=== PATIENT | female | born 1950 | race Caucasian/White ===

== ENCOUNTER 2019-08-22 15:16 | Outpatient (CLI) | payer MEDICARE ==
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
== END 2019-08-22 15:17 | disposition home or self-care (01) ==
LOC: PC 15:16
PROVIDERS: ATTEND Nurse Practitioner Adult Health
DX: Z51.5 Encounter for palliative care (principal); E10.9 Type 1 diabetes mellitus without complications; R63.4 Abnormal weight loss; F41.9 Anxiety disorder, unspecified; M62.81 Muscle weakness (generalized); R32 Unspecified urinary incontinence; R53.81 Other malaise; F40.231 Fear of injections and transfusions; F40.232 Fear of other medical care; F17.210 Nicotine dependence, cigarettes, uncomplicated; F99 Mental disorder, not otherwise specified; I10 Essential (primary) hypertension; Z79.84 Long term (current) use of oral hypoglycemic drugs; Z91.14 Patient's other noncompliance with medication regimen; Z91.81 History of falling
CPT/HCPCS: 99344

== ENCOUNTER 2019-09-10 18:31 | Inpatient (IN) | payer MEDICARE ==
--- NOTE | 2019-09-10 19:25 | XRAY Report ---
Reason: cough Procedure Date: 09/10/2019 Accession Number: [id number] / [id number] Procedure: XR - Chest 2 View X-Ray CPT Code: 57900 Final Report FULL RESULT: EXAM: CHEST RADIOGRAPHY EXAM DATE: 09/10/2019 07:01 PM. CLINICAL HISTORY: Cough. COMPARISON: None. TECHNIQUE: 2 views. FINDINGS: Lungs/Pleura: Pulmonary hyperinflation present diffusely. No focal opacities, effusions or edema present. Mediastinum: Diffusely narrowed mediastinum. No cardiac enlargement or mediastinal mass. Other: None. IMPRESSION: 1. Diffuse pulmonary hyperinflation may represent underlying emphysema. 2. No focal pulmonary opacities or edema. RADIA
[2019-09-10] MEDS ORDERED: SODIUM CHLORIDE 0.9% 1,000 ML IV ONE ×2 (20:12→21:48)
--- NOTE | 2019-09-10 20:16 | ED Physician Documentation ---
History of Present Illness - Stated complaint Stated Complaint: FEVER - Chief complaint Chief Complaint: Fever - History of Present Illness Timing: Other (69-year-old woman with history of psychiatric disorder and a recent diagnosis of type 1 diabetes presents with friends With whom she lives for few days worth of productive cough and a fever starting today as well as the inability to walk due to weakness today. No known history of COPD despite her suggestive body habitus and x-ray. 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 : Incontinence HEENT: None Psych: Depression, Anxiety, Other Musculoskeletal: Other Derm: None - Past Surgical History Past Surgical History: No - Present Medications Home Medications: Ambulatory Orders Medication Instructions Recorded Confirmed metFORMIN [Glucophage] 500 mg PO DAILY MDD 500 mg BID 08/22/19 08/22/19 when tolerated - Allergies Allergies/Adverse Reactions: Allergies Allergy/AdvReac Type Severity Reaction Status Date / Time No Known Drug Allergies Allergy Verified 09/10/19 18:37 - Social History Does the pt smoke?: Yes Smoking Status: Current every day smoker Does the pt drink ETOH?: No Does the pt have substance abuse?: No - Immunizations Immunizations are current?: No - POLST Patient has POLST: No PD ED PE NORMAL - Vitals Vital signs reviewed: Yes - General General: No acute distress, Other (She does seem slightly confused, she can state the date, that she is in the hospital but does not know which hospital. She is thin and cachectic. 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 2-12 intact Eye Opening: Spontaneous Motor: Obeys Commands Verbal: Confused GCS Score: 14 Results - Vitals Vitals: Vital Signs - 24 hr 09/10/19 09/10/19 18:37 21:01 Temperature 38.9 C H 38.1 C H Heart Rate 117 H 107 H Respiratory 24 20 Rate Blood Pressure 180/98 H 156/72 H O2 Saturation 94 90 L Oxygen O2 Source Room air - Labs Labs: Laboratory Tests 09/10/19 09/10/19 09/10/19 18:42 18:48 20:23 WBC 9.8 RBC 4.56 Hgb 14.4 Hct 45.1 MCV 98.9 MCH 31.6 H MCHC 31.9 L RDW 12.3 Plt Count 292 MPV 9.6 Neut # (Auto) 7.9 H Lymph # (Auto) 0.9 L [place] # (Auto) 0.6 Eos # (Auto) 0.2 Baso # (Auto) 0.1 Absolute Nucleated RBC 0.00 Nucleated RBC % 0.0 Sodium Potassium Chloride Carbon Dioxide Anion Gap BUN Creatinine Estimated GFR (MDRD) Glucose POC Whole Bld Glucose 264 H Lactic Acid Calcium Total Bilirubin AST ALT Alkaline Phosphatase Total Protein Albumin Globulin Albumin/Globulin Ratio Lipase Ethyl Alcohol Serum Ketones Influenza A (Rapid) Negative Influenza B (Rapid) Negative 09/10/19 09/10/19 09/10/19 20:23 20:23 20:23 WBC RBC Hgb Hct MCV MCH MCHC RDW Plt Count MPV Neut # (Auto) Lymph # (Auto) [place] # (Auto) Eos # (Auto) Baso # (Auto) Absolute Nucleated RBC Nucleated RBC % Sodium 137 Potassium 4.4 Chloride 98 L Carbon Dioxide 25 Anion Gap 14.0 H BUN 16 Creatinine 0.7 Estimated GFR (MDRD) 83 L Glucose 313 H POC Whole Bld Glucose Lactic Acid 1.2 Calcium 9.3 Total Bilirubin 0.6 AST 16 ALT 15 Alkaline Phosphatase 95 Total Protein 7.0 Albumin 3.5 Globulin 3.5 Albumin/Globulin Ratio 1.0 Lipase 32 Ethyl Alcohol < 5.0 Serum Ketones SMALL H Influenza A (Rapid) Influenza B (Rapid) - Rads (name of study) 2v chest Radiology: EMP read contemporaneously (Hyperinflation) PD MEDICAL DECISION MAKING - ED course ED course: 69-year-old woman presents confused with fever, COPD on examination and exacerbation based on symptoms. Administered abx, duoneb. Steroids held d/t DMI. Spoke with Dr García for admit given weakness/confusion. Departure - Departure Disposition: 66 [facility] DC/Xfer Clinical Impression: COPD exacerbation, Confusion Fever Qualifiers: Fever type: due to other condition Qualified Code(s): R50.81 - Fever presenting with conditions classified elsewhere Condition: Serious Discharge Date/Time: 09/10/19 23:12
[2019-09-10 20:31] LABS: BASOPHILS # (AUTO) 0.1 10^3/uL (0.0-0.1); EOSINOPHILS # (AUTO) 0.2 10^3/uL (0.0-0.7); EOSINOPHILS % (AUTO) 1.5 %; HGB - HEMOGLOBIN 14.4 g/dL (12.0-16.0); LYMPHOCYTES # (AUTO) 0.9 10^3/uL (1.5-3.5); LYMPHOCYTES % (AUTO) 9.1 %; MEAN CORPUSCULAR HEMOGLOBIN 31.6 pg (27.0-31.0); MEAN CORPUSCULAR HGB CONC 31.9 g/dL (32.0-36.0); MEAN CORPUSCULAR VOLUME 98.9 fL (81.0-99.0); MEAN PLATELET VOLUME 9.6 fL (7.9-10.8); MONOCYTES # (AUTO) 0.6 10^3/uL (0.0-1.0); MONOCYTES % (AUTO) 6.6 %; NEUTROPHILS # (AUTO) 7.9 10^3/uL (1.5-6.6); NEUTROPHILS % (AUTO) 80.6 %; PLT - PLATELET COUNT 292 10^3/uL (130-450); RED BLOOD COUNT 4.56 10^6/uL (4.20-5.40); RED CELL DISTRIBUTION WIDTH 12.3 % (12.0-15.0); WHITE BLOOD COUNT 9.8 x10^3/uL (4.8-10.8)
[2019-09-10 20:47] LABS: ALBUMIN 3.5 g/dL (3.2-5.5); BILIRUBIN,TOTAL 0.6 mg/dL (0.2-1.0); CALCIUM 9.3 mg/dL (8.5-10.3); CREATININE 0.7 mg/dL (0.4-1.0)
[2019-09-10] MEDS ORDERED: cefTRIAXone 1 GM VIAL IVP STA (21:40)
[2019-09-10] MEDS ORDERED: AZITHROMYCIN INJ 500 MG in SODIUM CHLORIDE 0.9% 250 ML IV STA (21:40)
[2019-09-10] MEDS ORDERED: IPRATROPIUM/ALBUTEROL 3 ML NEB INH STA (21:40)
[2019-09-10] MEDS ORDERED: ONDANSETRON 4 MG/2 ML VIAL IVP PRN (21:44)
[2019-09-10] MEDS ORDERED: SODIUM CHLORIDE FLUSH 0.9% 10 ML SYRINGE IVP PRN (21:44)
[2019-09-10] MEDS ORDERED: ACETAMINOPHEN 325 MG TABLET PO PRN (21:44)
[2019-09-10] MEDS ORDERED: BENZONATATE 100 MG CAPSULE PO PRN (21:50)
[2019-09-10] MEDS ORDERED: SODIUM CHLORIDE 0.9% 1,000 ML IV SCH (22:00)
--- NOTE | 2019-09-10 22:11 | HISTORY & PHYSICAL EXAMINATION ---
Chief Complaint - Chief Complaint Chief Complaint: Cough History of Present Illness - Admitted From Admitted From:: Home - History Obtained From Records Reviewed: Yes History obtained from: Patient, Friends, ER Physician, EMR - History of Present Illness HPI Comment/Other: This is a 69-year-old female with a past medical history significant for rece ntly diagnosed type 1 diabetes, and reported psychiatric history who presents today complaining of a worsening cough for the past 3 days. Most of the history is obtained from the patient and her caregivers at bedside. The patient states she has had a nonproductive cough that has progressed over the past 3 days. She reports no dyspnea at this time although she has had occasional episodes where s he has felt short of breath at rest. She reports no fevers at home but today her caregiver measured her temperature and it was 101. It was checked a couple hours later and it had increased to 102. They were concerned for pneumonia and that is why she was brought to the emergency department. The patient denies any chest pain, nausea, vomiting, abdominal pain, dysuria, urgency. She reports no focal weakness. She does complain of feeling generally weak. Both the caregivers had been recently sick but both are recovering from the flu. Her caregiver state that normally she is able to ambulate on her own but this morning should not get out of bed until 11 AM which is quite late for her. She was then very weak and not eating as much as she usually does. They state that she was recently diagnosed with type 1 diabetes about 1 month ago. She was prescribed Lantus which she has been taking nearly every day although she not take it today. She is now on 17 units of Lantus which is given to her by her caregiver usually around noon time. The patient is not adherent to a carb controlled diet. She also drinks about 6 cans of Diet Coke a day. She is unable to check her own blood sugars and does not administer her own insulin. Her caregiver checks her blood sugar twice a day and states it is usually in the 500s to 600s. Patient does not take any other medications except for Lantus. She reports that she continues to smoke about 1 cigarette a day although her caregiver states she smokes more than that. The patient states she smoked in the past about 10 cigarettes a day although she cannot recall for how long she has been smoking for. She does not drink alcohol. Her caregivers also states she has been more confused than usual today. Earlier on in the day she did not know her date of . Right now, she knows the year and her date of . She is able to name her caregivers who are at bedside. The patient had previously been living alone up until when she moved in with her current caregivers, Lizeth and Cirilo. She has been losing about 10 pounds a month until she was diagnosed with type 1 diabetes one month ago. At the beginning of August, she has gained approximately 10 pounds. In the emergency department, she is found to be febrile temperature of 30.9 degrees. Tachycardic with a heart rate of 117. Hypertensive with a blood pressure of 180/98. She was also tachypneic in the low 20s and saturating 94% on room air. Her labs were unremarkable except for an anion gap of 14 and a blood glucose of 313. Influenza was negative. Chest x-ray showed no acute abnormalities although was suggestive of emphysema. She was given a DuoNeb breathing treatment as well as ceftriaxone azithromycin in the emergency department. Given the fever, COPD exacerbation and concern for her altered mental status, medicine was consulted for admission. Did discuss goals of care with the patient and her caregivers at bedside. The patient states that she would like to be a DNR. She has reportedly filled out a POLST form in the past which states she would not want aggressive measures. At this time, she is agreeable to IV fluids and antibiotics but she would not want to be transferred to intensive care unit for more aggressive measures. This was confirmed by her caregivers. History - Past Medical History Cardiovascular: reports: Hypertension Respiratory: reports: None Neuro: reports: Dementia Endocrine/Autoimmune: reports: Type 1 diabetes GI: reports: None LINEMAN A CLASS: reports: Other : reports: Incontinence HEENT: reports: None Psych: reports: Depression, Anxiety Derm: reports: None MRSA Hx?: No - Family & Social History Family History Comment/Other: Patient reports that her father had alcoholism but she cannot recall any other medical history. Living arrangement: Homeless Living Situation: With friend(s) Social History Notes: The patient was previously living on her own with her dog in an apartment. He had been losing weight and was unable to take care of herself and so she moved in with her friend, Lizeth around time. She had been staying with Lizeth and Cirilo since then and they have been caring for her. She areas one who administers the patient's insulin and checks her blood sugars. They have met with Litzy Perez of palliative care earlier this month. The patient has home health visiting twice a day. Lizeth is concerned that the patient will be unable to take care of herself at home when she is going on vacation next month. Patient reports smoking 1 cigarette a day although she reports that she smokes more than that. The patient previously smoked 10 cigarettes a day although she cannot recall for how long she has been smoking for. She does not drink alcohol. - Substance History Use: Uses substance without health or social issues: Tobacco (smokes 2 cigerettes a day) - POLST Patient has POLST: No Meds/Allgy - Home Medications Home Medications: Ambulatory Orders Medication Instructions Recorded Confirmed Insulin Glargine [Lantus Solostar] 17 unit 09/11/19 - Allergies Allergies/Adverse Reactions: Allergies Allergy/AdvReac Type Severity Reaction Status Date / Time No Known Drug Allergies Allergy Verified 09/10/19 18:37 Review of Systems - Constitutional Constitutional: reports: Fatigue, Fever, Weakness, Poor appetite. denies: Chills, Malaise - Eyes Eyes: denies: Blurred vision - Cardiovascular Cariovascular: denies: Chest pain, Edema, Exertional dyspnea, Decr. exercise tolerance - Respiratory Respiratory: reports: Cough. denies: Sputum production, Wheezing, SOB at rest, SOB with exertion - Gastrointestinal Gastrointestinal: denies: Abdominal pain, Nausea, Vomiting - Genitourinary Genitourinary: denies: Dysuria, Frequency, Urgency - Integumentary Integumentary: reports: Rash (In the groin) - Neurological Neurological: reports: General weakness. denies: Focal weakness, Numbness - All Other Systems All Other Systems: reports: Reviewed and negative Prior Level of Functionality: She is dependent on her friend, Lizeth for her ADLs. She had been losing weight when she lives alone and continues to do so and now weighs 80 pounds. Exam - Vital Signs Reviewed Vital Signs: Yes Vital Signs: Vital Signs x48h Temp Pulse Resp BP Pulse Ox 09/10/19 21:01 38.1 C H 107 H 20 156/72 H 90 L 09/10/19 18:37 38.9 C H 117 H 24 180/98 H 94 - Physical Exam General Appearance: positive: No acute distress, Alert Eyes Bilateral: positive: Normal inspection ENT: positive: Pharynx nml Neck: positive: Nml inspection Respiratory: positive: No respiratory distress, Wheezes (Does have faint expiratory wheezes. Breath sounds are diminished.). negative: Rales, Rhonchi Cardiovascular: positive: Regular rate & rhythm, No murmur, Tachycardia. negati ve: Bradycardia, Systolic murmur, Diastolic murmur Abdomen: positive: Non-tender, No distention. negative: Tenderness, Guarding, Rebound Skin: positive: Warm, Dry. negative: Pallor Extremities: positive: Full ROM, No pedal edema Neurologic/Psychiatric: positive: Oriented x3, Motor nml, Other (She has no focal motor deficits. She is oriented to self and she knows she is in the hospital although she cannot recall which one. She knows that it is now the year 2019 and she knows it was just her birthday a few days ago.). negative: Disoriented to person, Disoriented to place, Disoriented to time, Slurred/abnml speech Conclusion/Plan - Problem List (1) Fever Conclusion/Plan: She was febrile with a temperature of 38.9 upon arrival to emergency department. She is also tachycardic and slightly tachypneic. Her labs are unremarkable and chest x-ray is without obvious infiltrate. Influenza is also negative. Blood cultures have been drawn. Etiology of her fever is not clear although this could possibly be a viral illness. We will place her on ceftriaxone and azithromycin for COPD exacerbation. We will follow-up her urinalysis. If she remains febrile, will likely start empiric treatment with Tamiflu for influenza. Qualifiers: Fever type: due to other condition Qualified Code(s): R50.81 - Fever presenting with conditions classified elsewhere (2) Confusion Conclusion/Plan: She is slightly confused at times but her caregivers feel that she is improving. Suspect her confusion likely secondary to the likely infection given her fevers. She is oriented to self and location although she does not know which hospital she is in. Prior palliative care notes mention that her mental status fluctuates at baseline and there may be a possible history of dementia when speaking with the caregivers. We will hold off on obtaining a CT of the head of the time as there are no focal deficits on exam. We will not check an ammonia as her LFTs are normal. (3) COPD exacerbation Conclusion/Plan: Although she does not have an official diagnosis of COPD, her chest x-ray did reveal emphysematous changes. She does have wheezing on exam with diminished breath sounds. She has a profound cough. Fortunately she is not hypoxic. Will place her on duo nebs [id number] as well as Tessalon and Robitussin for her cough. We will also start her on ceftriaxone and azithromycin. We will want to rule out diabetic ketoacidosis before starting her on steroids. She would benefit from a LAMA on discharge as well as albuterol as needed. (4) Type 1 diabetes mellitus with hyperglycemia Conclusion/Plan: She has been reportedly diagnosed with type 1 diabetes recently and is now on insulin. Reading the palliative care consult note from earlier this month, it appears patient has been noncompliant with her insulin regimen and has had blood glucose as high as 1000. She is hyperglycemic with a blood glucose greater than 300. Her anion gap is slightly elevated as well but her bicarbonate is normal. We will place her on 17 units of Lantus and sliding scale. We will check serum ketones to rule out the possibility of early diabetic ketoacidosis. Will place her on a consistent carbohydrate diet unless she does have DKA. If she does then we will make her n.p.o. and hydrate her aggressively and we will attempt to control her blood glucose with subcutaneous insulin. Check an A1c in the morning as reportedly her previous A1c's were around 15%. 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 (5) Living accommodation issues Conclusion/Plan: She is homeless but has been staying with a friend, Lizeth since July. Lizeth is concerned that the patient be unable to take care of herself at home when she is on vacation starting this Monday for about 10 days. She does have home health seen the patient is only twice a week. We will place a social work consult to assist with disposition. (6) Psychiatric disorder Conclusion/Plan: She reportedly has a history of psychiatric disorder although unclear what diagnoses she has had in the past. Will need to confirm if she is on any medications before restarting them. - Lab Results Lab results reviewed: Yes Fish Bones: 09/10/19 20:23 09/10/19 23:50 - Diagnostic Imaging Results Diagnostic Imaging Results: positive: Final report reviewed Core Measures - Anticipated LOS I expect patient to be DC'd or transferred within 96 hours.: Yes - Issues Hospital Issues and Management Plan: This is a 69-year-old female who presents complaining of shortness of breath and weakness found to have a fever and COPD suspicion. Should be admitted for further work-up of the fever and treatment of her COPD. - DVT/VTE - Prophylaxis VTE/DVT Device ordered at admit?: Yes VTE/DVT Prophylaxis med ordered at admit?: Yes
[2019-09-10 22:13] LABS: KETONES, SERUM (ACETEST) SMALL (NEGATIVE)
[2019-09-11 00:19] LABS: CALCIUM 8.4 mg/dL (8.5-10.3); CREATININE 0.8 mg/dL (0.4-1.0); MAGNESIUM 1.8 mg/dL (1.7-2.8); PHOSPHORUS 3.4 mg/dL (2.5-4.6)
[2019-09-11] MEDS ORDERED: INSULIN REGULAR HUMAN 300 UNIT/3 ML VIAL IVP ONE (00:40)
[2019-09-11] MEDS: INSULIN GLARGINE 300 UNIT/3 ML PEN SUBQ SCH ×2 (01:02→21:00)
[2019-09-11] MEDS: SODIUM CHLORIDE FLUSH 0.9% 10 ML SYRINGE IVP SCH ×3 (01:03→16:42)
[2019-09-11 04:22] LABS: MUDS CUTOFF CONCENTRATIONS CUTOFF CONC BELOW:
[2019-09-11 04:24] LABS: BILIRUBIN,URINE NEGATIVE (NEGATIVE); GLUCOSE, URINE (UA) >=1000 mg/dL (NEGATIVE); KETONES,URINE (UA) >=80 mg/dL (NEGATIVE); LEUKOCYTE ESTERASE, URINE TRACE (NEGATIVE); NITRITE,URINE NEGATIVE (NEGATIVE); OCCULT BLOOD,URINE NEGATIVE (NEGATIVE); PH,URINE 5.5 PH (5.0-7.5); PROTEIN,URINE NEGATIVE (NEGATIVE); UROBILINOGEN,URINE 0.2 (NORMAL) E.U./dL (NORMAL)
[2019-09-11 04:29] LABS: CLARITY,URINE HAZY (CLEAR)
[2019-09-11 04:33] LABS: BACTERIA,URINE Few /HPF (None Seen); RBC,URINE 0-5 /HPF (0-5); SQUAMOUS EPITHELIAL CELL,UR RARE Squamous (<= Few)
[2019-09-11 04:34] LABS: AMPHETAMINE SCREEN,URINE NEGATIVE (NEGATIVE); BENZODIAZEPINES SCREEN, URINE NEGATIVE (NEGATIVE); COCAINE SCREEN URINE NEGATIVE (NEGATIVE); METHADONE SCREEN, URINE NEGATIVE (NEGATIVE); METHAMPHETAMINES SCREEN, URINE NEGATIVE (NEGATIVE); OPIATE SCREEN, URINE NEGATIVE (NEGATIVE); OXYCODONE SCREEN, URINE NEGATIVE (NEGATIVE); PROPOXYPHENE SCREEN, URINE NEGATIVE (NEGATIVE); TRICYCLIC ANTIDEPRESSANT,URINE NEGATIVE (NEGATIVE)
[2019-09-11 05:06] LABS: BASOPHILS % (AUTO) 0.7 %; EOSINOPHILS % (AUTO) 1.5 %; LYMPHOCYTES % (AUTO) 8.4 %; MEAN CORPUSCULAR HEMOGLOBIN 31.9 pg (27.0-31.0); MEAN CORPUSCULAR HGB CONC 32.1 g/dL (32.0-36.0); MEAN CORPUSCULAR VOLUME 99.5 fL (81.0-99.0); MEAN PLATELET VOLUME 9.7 fL (7.9-10.8); MONOCYTES % (AUTO) 7.1 %; NEUTROPHILS % (AUTO) 81.2 %; PLT - PLATELET COUNT 263 10^3/uL (130-450); RED BLOOD COUNT 4.07 10^6/uL (4.20-5.40); RED CELL DISTRIBUTION WIDTH 12.3 % (12.0-15.0); WHITE BLOOD COUNT 9.7 x10^3/uL (4.8-10.8)
[2019-09-11 05:16] LABS: ABNORMAL LYMPHS % (MANUAL) 0 %
[2019-09-11 05:18] LABS: CALCIUM 8.3 mg/dL (8.5-10.3); CREATININE 0.7 mg/dL (0.4-1.0); MAGNESIUM 1.9 mg/dL (1.7-2.8); PHOSPHORUS 2.8 mg/dL (2.5-4.6)
[2019-09-11 05:23] LABS: HB2 TOTAL 13.3 g/dL; HEMOGLOBIN A1C 1.99 g/dL; HEMOGLOBIN A1C % 15.8 % (4.6-6.2)
[2019-09-11] MEDS: IPRATROPIUM/ALBUTEROL 3 ML NEB INH SCH ×5 (06:43→22:57)
[2019-09-11 06:45] LABS: BAND NEUTROPHILS % (MANUAL) 14 %; DIFFERENTIAL COMMENT MANUAL DIFFERENTIAL; LYMPHOCYTES # (MANUAL) 0.8 10^3/uL (1.5-3.5); LYMPHOCYTES % (MANUAL) 8 %; MONOCYTES # (MANUAL) 0.5 10^3/uL (0.0-1.0); PLATELET ESTIMATE, MANUAL NORMAL (130-450,000) (NORMAL); RBC MORPHOLOGY (MULTIPLE) NORMAL APPEARANCE (NORMAL)
[2019-09-11] MEDS ORDERED: POTASSIUM CHLORIDE 20 MEQ TABLET PO ONE (06:45)
[2019-09-11] MEDS ORDERED: predniSONE 20 MG TABLET PO SCH (08:00)
[2019-09-11] MEDS: INSULIN ASPART 300 UNIT/3 ML PEN SUBQ SCH ×5 (08:32→20:59)
[2019-09-11] MEDS: HEPARIN 5,000 UNIT/ML VIAL SUBQ SCH ×2 (08:33→21:00)
--- NOTE | 2019-09-11 08:54 | PHARMACY PROGRESS NOTE ---
- Best Possible Medication History Admit Date and Time: 09/10/19 214 Processed by: Pharmacy Medication History completed: Yes Patient Interview: Pt unable to participate Secondary Source(s): Caregiver As the person ultimately responsible for medication therapy, providers are able to order a medication from an existing home medication list in [facility] via the "Reconcile Routine" prior to Confirmation of that medication by legal support manager. Such practice is discouraged except when the physician, in their clinical judgment, deems that a medical need exists for a medication without regard to previous use.
[2019-09-11] MEDS: AZITHROMYCIN 250 MG TABLET PO SCH (09:00)
[2019-09-11] MEDS: SODIUM CHLORIDE 0.9% 1,000 ML IV SCH ×2 (09:01→20:46)
[2019-09-11] MEDS: cefTRIAXone 1 GM in SODIUM CHLORIDE 0.9% MINIBAG 100 ML IV SCH (09:02)
--- NOTE | 2019-09-11 14:45 | PROVIDER PROGRESS NOTE ---
Assessment/Plan - Problem List (1) Fever Qualifiers: Fever type: due to other condition Qualified Code(s): R50.81 - Fever presenting with conditions classified elsewhere Assessment/Plan: no more fever today. blood culture is pending. pt present cough with wheezing, it is likely the resource to cause pt to have fever continue antibiotics azithyromycin and Rocephin, order sputum culture (2) Confusion Conclusion/Plan: improving. Suspect her confusion likely secondary to the likely infection given her fevers. continue antibiotics, and IVF of NS neuro check (3) COPD exacerbation Conclusion/Plan: pt still present significant wheezing, cough and SOB add solu-metrol 40 mg tid, continue INH treatment supplement of O2 as needed (4) Type 1 diabetes mellitus with hyperglycemia Conclusion/Plan: pt has A1C 15.8, it is likely pt did not compliance her insulin. pt also had small ketones. Now pt has steroid for her COPD which will worsen her glucose level. increase slide scale level, tid with 5 unit of novolog, ACHS, continue hypoglycemia protocol continue IVF of NS consult with DM educator for pt lab monitor, check potassium level (5) Living accommodation issues Conclusion/Plan: consult with social scientist for help pt. She is homeless but has been staying with a friend, Lizeth since July. Lizeth is concerned that the patient be unable to take care of herself at home when she is on vacation starting this Monday for about 10 days. She does have home health seen the patient is only twice a week. We will place a social work consult to assist with disposition. (6) Psychiatric disorder Conclusion/Plan: pt has no home psychiatric meds, so far she is fine and no acute psychosis She reportedly has a history of psychiatric disorder although unclear what diagnoses she has had in the past. Will need to confirm if she is on any medications before restarting them. (7)medical non-compliance pt report she did not compliance for her insulin consult with social scientist to support pt advise and educate for pt's medical compliance - Current Meds Current Meds: Current Medications Generic Name Dose Route Start Last Admin Trade Name Freq PRN Reason Stop Dose Admin Albuterol/Ipratropium 3 ml 09/11/19 01:00 09/11/19 13:26 Duoneb INH 3 ml Q4HR IO[facility] Administration Azithromycin 250 mg 09/11/19 09:00 09/11/19 09:00 Zithromax PO 250 mg DAILY IO[facility] Administration Heparin Sodium (Porcine) 5,000 unit 09/11/19 09:00 09/11/19 08:33 SUBQ 5,000 unit BID IO[facility] Administration Ceftriaxone Sodium 1 gm/ 100 mls @ 200 mls/hr 09/11/19 09:00 09/11/19 09:32 Sodium Chloride IV Infused DAILY IO[facility] Infusion Sodium Chloride 1,000 mls @ 83.3 mls/hr 09/11/19 08:35 09/11/19 09:32 Normal Saline 0.9% IV 09/12/19 08:35 83.3 mls/hr .Q12H1M IO[facility] Infusion Insulin Aspart 1 - 9 unit 09/11/19 08:00 09/11/19 12:23 Novolog SUBQ 7 unit 0800,1200,1700,2100 [facility] Administration Protocol Insulin Glargine 17 unit 09/11/19 01:00 09/11/19 01:02 Lantus Solostar SUBQ 17 unit QPM IO[facility] Administration Sodium Chloride 10 ml 09/11/19 01:00 09/11/19 08:33 Normal Saline Flush 0.9% IVP Not Given 0100,0900,1700 IO[facility] - Lab Result Fish Bone Diagrams: 09/11/19 04:30 09/11/19 04:30 - Additional Planning My Orders: My Active Orders 09/11/19 08:35 Sodium Chloride 0.9% [Normal Saline 0.9%] 1,000 ml IV 83.3 mls/hr 09/11/19 09:00 Azithromycin [Zithromax] 250 mg PO DAILY cefTRIAXone [Rocephin] 1 gm Sodium Chloride 0.9% Minibag [Normal Saline 0.9% Minibag] 100 ml IV DAILY 09/11/19 09:16 Nebulizer/MDI Tx. [RC] .QID 09/11/19 15:00 methylPREDNISolone SUCCINATE [SOLU-Medrol (40MG VIAL)] 40 mg IVP TID Subjective - Subjective Patient Reports: Feeling Better Objective Vital Signs: Vital Signs - 24 hr 09/10/19 09/10/19 09/10/19 18:37 21:01 22:45 Temperature 38.9 C H 38.1 C H Heart Rate 117 H 107 H 107 H Heart Rate [ Brachial] Heart Rate [ Supine] Respiratory 24 20 20 Rate Blood Pressure 180/98 H 156/72 H Blood Pressure [Left Brachial artery] Blood Pressure [Right Brachial artery] Blood Pressure [Supine] O2 Saturation 94 90 L 09/10/19 09/11/19 09/11/19 23:30 04:00 09:00 Temperature 37.8 C H 37.5 C Heart Rate Heart Rate [ 114 H 97 Brachial] Heart Rate [ Supine] Respiratory 20 20 Rate Blood Pressure Blood Pressure 161/71 H 135/60 H [Left Brachial artery] Blood Pressure 154/75 H [Right Brachial artery] Blood Pressure [Supine] O2 Saturation 92 96 09/11/19 09/11/19 09/11/19 09:15 11:55 13:00 Temperature 36.3 C L Heart Rate 92 Heart Rate [ 91 Brachial] Heart Rate [ 90 Supine] Respiratory 12 16 Rate Blood Pressure Blood Pressure 155/75 H [Left Brachial artery] Blood Pressure 155/75 H [Right Brachial artery] Blood Pressure 154/75 H [Supine] O2 Saturation 97 09/11/19 13:26 Temperature Heart Rate 86 Heart Rate [ Brachial] Heart Rate [ Supine] Respiratory 16 Rate Blood Pressure Blood Pressure [Left Brachial artery] Blood Pressure [Right Brachial artery] Blood Pressure [Supine] O2 Saturation Oxygen O2 Source Nasal cannula I&O (Last 24 Hrs): Intake and Output Totals x24h 09/09/19 09/10/19 09/11/19 23:59 23:59 23:59 Intake Total 1250 1601.388 Output Total 40 Balance 1250 1561.388 General: Alert, No acute distress HEENT: Atraumatic Neck: Supple Lymphatic: no adenopathy Neuro: Alert, Non Focal Cardiovascular: Regular rate, Normal S1, Normal S2 Respiratory: Chest non-tender, Wheezes Abdomen: Normal bowel sounds, Soft Extremities: No edema, Normal pulses - Results Results: Laboratory Results WBC 9.7 x10^3/uL (4.8-10.8) 09/11/19 04:30 RBC 4.07 10^6/uL (4.20-5.40) L 09/11/19 04:30 Hgb 13.0 g/dL (12.0-16.0) 09/11/19 04:30 Hct 40.5 % (37.0-47.0) 09/11/19 04:30 MCV 99.5 fL (81.0-99.0) H 09/11/19 04:30 MCH 31.9 pg (27.0-31.0) H 09/11/19 04:30 MCHC 32.1 g/dL (32.0-36.0) 09/11/19 04:30 RDW 12.3 % (12.0-15.0) 09/11/19 04:30 Plt Count 263 10^3/uL (130-450) 09/11/19 04:30 MPV 9.7 fL (7.9-10.8) 09/11/19 04:30 Neut # (Auto) Not Reportable 09/11/19 04:30 Lymph # (Auto) Not Reportable 09/11/19 04:30 [place] # (Auto) Not Reportable 09/11/19 04:30 Eos # (Auto) Not Reportable 09/11/19 04:30 Baso # (Auto) Not Reportable 09/11/19 04:30 Absolute Nucleated RBC Not Reportable 09/11/19 04:30 Total Counted 100 09/11/19 04:30 Band Neuts % (Manual) 14 % (0-10) H 09/11/19 04:30 Abnorm Lymph % (Manual) 0 % 09/11/19 04:30 Nucleated RBC % Not Reportable 09/11/19 04:30 Neutrophils # (Manual) 8.4 10^3/uL (1.5-6.6) H 09/11/19 04:30 Lymphocytes # (Manual) 0.8 10^3/uL (1.5-3.5) L 09/11/19 04:30 Monocytes # (Manual) 0.5 10^3/uL (0.0-1.0) 09/11/19 04:30 Eosinophils # (Manual) 0.0 10^3/uL (0-0.7) 09/11/19 04:30 Basophils # (Manual) 0.0 10^3/uL (0-0.1) 09/11/19 04:30 Differential Comment MANUAL DIFFERENTIAL 09/11/19 04:30 Platelet Estimate NORMAL (130-450,000) (NORMAL) 09/11/19 04:30 RBC Morph Micro Appear NORMAL APPEARANCE (NORMAL) 09/11/19 04:30 Sodium 137 mmol/L (135-145) 09/11/19 04:30 Potassium 3.5 mmol/L (3.5-5.0) 09/11/19 04:30 Chloride 101 mmol/L (101-111) 09/11/19 04:30 Carbon Dioxide 26 mmol/L (21-32) 09/11/19 04:30 Anion Gap 10.0 (6-13) 09/11/19 04:30 BUN 14 mg/dL (6-20) 09/11/19 04:30 Creatinine 0.7 mg/dL (0.4-1.0) 09/11/19 04:30 Estimated GFR (MDRD) 83 (>89) L 09/11/19 04:30 Glucose 221 mg/dL (70-100) H 09/11/19 04:30 POC Whole Bld Glucose 311 mg/dL (70 - 100) H 09/11/19 12:18 Glycated Hemoglobin 15.8 % (4.6-6.2) H 09/11/19 04:30 Estim Average Glucose 407 (70-100) H 09/11/19 04:30 Lactic Acid 1.2 mmol/L (0.5-2.2) 09/10/19 20:23 Calcium 8.3 mg/dL (8.5-10.3) L 09/11/19 04:30 Phosphorus 2.8 mg/dL (2.5-4.6) 09/11/19 04:30 Magnesium 1.9 mg/dL (1.7-2.8) 09/11/19 04:30 Total Bilirubin 0.6 mg/dL (0.2-1.0) 09/10/19 20:23 AST 16 IU/L (10-42) 09/10/19 20:23 ALT 15 IU/L (10-60) 09/10/19 20:23 Alkaline Phosphatase 95 IU/L (42-121) 09/10/19 20:23 Total Protein 7.0 g/dL (6.7-8.2) 09/10/19 20:23 Albumin 3.5 g/dL (3.2-5.5) 09/10/19 20:23 Globulin 3.5 g/dL (2.1-4.2) 09/10/19 20:23 Albumin/Globulin Ratio 1.0 (1.0-2.2) 09/10/19 20:23 Lipase 32 U/L (22-51) 09/10/19 20:23 Urine Color YELLOW 09/11/19 04:05 Urine Clarity HAZY (CLEAR) 09/11/19 04:05 Urine pH 5.5 PH (5.0-7.5) 09/11/19 04:05 Ur Specific [place] >=1.030 (1.002-1.030) H 09/11/19 04:05 Urine Protein NEGATIVE mg/dL (NEGATIVE) 09/11/19 04:05 Urine Glucose (UA) >=1000 mg/dL (NEGATIVE) H 09/11/19 04:05 Urine Ketones >=80 mg/dL (NEGATIVE) H 09/11/19 04:05 Urine Occult Blood NEGATIVE (NEGATIVE) 09/11/19 04:05 Urine Nitrite NEGATIVE (NEGATIVE) 09/11/19 04:05 Urine Bilirubin NEGATIVE (NEGATIVE) 09/11/19 04:05 Urine Urobilinogen 0.2 (NORMAL) E.U./dL (NORMAL) 09/11/19 04:05 Ur Leukocyte Esterase TRACE (NEGATIVE) H 09/11/19 04:05 Urine RBC 0-5 /HPF (0-5) 09/11/19 04:05 Urine WBC >25 /HPF (0-5) H 09/11/19 04:05 Ur Squamous Epith Cells RARE Squamous (<= Few) 09/11/19 04:05 Urine Bacteria Few /HPF (None Seen) 09/11/19 04:05 Ur Microscopic Review INDICATED 09/11/19 04:05 Urine Culture Comments INDICATED 09/11/19 04:05 Urine Opiates Screen NEGATIVE (NEGATIVE) 09/11/19 04:05 Ur Oxycodone Screen NEGATIVE (NEGATIVE) 09/11/19 04:05 Urine Methadone Screen NEGATIVE (NEGATIVE) 09/11/19 04:05 Ur Propoxyphene Screen NEGATIVE (NEGATIVE) 09/11/19 04:05 Ur Barbiturates Screen NEGATIVE (NEGATIVE) 09/11/19 04:05 Ur Tricyclics Screen NEGATIVE (NEGATIVE) 09/11/19 04:05 Ur Phencyclidine Scrn NEGATIVE (NEGATIVE) 09/11/19 04:05 Ur Amphetamine Screen NEGATIVE (NEGATIVE) 09/11/19 04:05 U Methamphetamines Scrn NEGATIVE (NEGATIVE) 09/11/19 04:05 U Benzodiazepines Scrn NEGATIVE (NEGATIVE) 09/11/19 04:05 Urine Cocaine Screen NEGATIVE (NEGATIVE) 09/11/19 04:05 U Cannabinoids Screen NEGATIVE (NEGATIVE) 09/11/19 04:05 Ethyl Alcohol < 5.0 mg/dL 09/10/19 20:23 Serum Ketones SMALL (NEGATIVE) H 09/10/19 20:23 Influenza A (Rapid) Negative (Negative) 09/10/19 18:48 Influenza B (Rapid) Negative (Negative) 09/10/19 18:48 ABX Reporting Has patient been on IV antibiotics over the past 48 hours?: Yes Current Medications - Current Medications Current Medications: Active Medications Acetaminophen (Tylenol) 650 mg PO Q4HR PRN PRN Reason: Pain 1 to 4 Albuterol/Ipratropium (Duoneb) 3 ml INH Q4HR [facility] Last Admin: 09/11/19 13:26 Dose: 3 ml Azithromycin (Zithromax) 250 mg PO DAILY [facility] Last Admin: 09/11/19 09:00 Dose: 250 mg Benzonatate (Tessalon) 100 mg PO TID PRN PRN Reason: Cough Heparin Sodium (Porcine) () 5,000 unit SUBQ BID [facility] Last Admin: 09/11/19 08:33 Dose: 5,000 unit Ceftriaxone Sodium 1 gm/ (Sodium Chloride) 100 mls @ 200 mls/hr IV DAILY [facility] Last Infusion: 09/11/19 09:32 Dose: Infused Sodium Chloride (Normal Saline 0.9%) 1,000 mls @ 83.3 mls/hr IV .Q12H1M [facility] Stop: 09/12/19 08:35 Last Infusion: 09/11/19 09:32 Dose: 83.3 mls/hr Insulin Aspart (Novolog) 1 - 9 unit SUBQ 0800,1200,1700,2100 [facility]; Protocol Last Admin: 09/11/19 12:23 Dose: 7 unit Insulin Aspart (Novolog) 10 unit SUBQ ONCE [facility] Stop: 09/11/19 16:04 Insulin Aspart (Novolog) 5 unit SUBQ TIDWM [facility]; Protocol Insulin Glargine (Lantus Solostar) 17 unit SUBQ QPM [facility] Last Admin: 09/11/19 01:02 Dose: 17 unit Methylprednisolone (Solu-Medrol (40mg Vial)) 40 mg IVP TID [facility] Ondansetron HCl (Zofran Inj) 4 mg IVP Q6HR PRN PRN Reason: Nausea / Vomiting Potassium Chloride (K-Dur) 20 meq PO ONCE [facility] Stop: 09/11/19 16:07 Sodium Chloride (Normal Saline Flush 0.9%) 10 ml IVP PRN PRN PRN Reason: NEEDED PER PROVIDER ORDERS Sodium Chloride (Normal Saline Flush 0.9%) 10 ml IVP 0100,0900,1700 [facility] Last Admin: 09/11/19 08:33 Dose: Not Given Hydrocortisone 1% Oint [Hydrocortisone] 1 applic TOP PRN PRN 09/11/19 Insulin Glargine,Hum.rec.anlog [Adriano Lewis U-100] 15 units SUBQ DAILY 09/11/19 Nystatin Cream [Mycostatin Cream] 1 applic VG DAILY 09/11/19
[2019-09-11] MEDS ORDERED: INSULIN ASPART 300 UNIT/3 ML PEN SUBQ SCH (15:04)
[2019-09-11] MEDS ORDERED: POTASSIUM CHLORIDE 20 MEQ TABLET PO SCH (15:07)
[2019-09-11] MEDS: methylPREDNISolone SUCCINATE 40 MG/ML VIAL IVP SCH ×2 (16:40→20:49)
[2019-09-11] MEDS ORDERED: INSULIN GLARGINE 300 UNIT/3 ML PEN SUBQ SCH (21:00)
[2019-09-12] MEDS: SODIUM CHLORIDE FLUSH 0.9% 10 ML SYRINGE IVP SCH ×2 (00:49→13:22)
[2019-09-12] MEDS: IPRATROPIUM/ALBUTEROL 3 ML NEB INH SCH ×3 (01:07→09:37)
[2019-09-12] MEDS: methylPREDNISolone SUCCINATE 40 MG/ML VIAL IVP SCH (05:22)
[2019-09-12 05:57] LABS: BASOPHILS % (AUTO) 0.2 %; HGB - HEMOGLOBIN 12.1 g/dL (12.0-16.0); LYMPHOCYTES % (AUTO) 14.5 %; MEAN CORPUSCULAR HEMOGLOBIN 31.3 pg (27.0-31.0); MEAN CORPUSCULAR HGB CONC 31.4 g/dL (32.0-36.0); MEAN CORPUSCULAR VOLUME 99.7 fL (81.0-99.0); MONOCYTES % (AUTO) 3.7 %; NEUTROPHILS % (AUTO) 80.6 %; PLT - PLATELET COUNT 258 10^3/uL (130-450); RED BLOOD COUNT 3.86 10^6/uL (4.20-5.40); RED CELL DISTRIBUTION WIDTH 12.4 % (12.0-15.0); WHITE BLOOD COUNT 8.6 x10^3/uL (4.8-10.8)
[2019-09-12 06:06] LABS: ABNORMAL LYMPHS % (MANUAL) 0 %
[2019-09-12 06:07] LABS: CALCIUM 8.5 mg/dL (8.5-10.3); CREATININE 0.6 mg/dL (0.4-1.0); MAGNESIUM 2.3 mg/dL (1.7-2.8); PHOSPHORUS 3.2 mg/dL (2.5-4.6)
[2019-09-12 06:27] LABS: BAND NEUTROPHILS % (MANUAL) 11 %; DIFFERENTIAL COMMENT MANUAL DIFFERENTIAL; LYMPHOCYTES # (MANUAL) 0.7 10^3/uL (1.5-3.5); LYMPHOCYTES % (MANUAL) 8 %; MONOCYTES # (MANUAL) 0.6 10^3/uL (0.0-1.0); PLATELET ESTIMATE, MANUAL NORMAL (130-450,000) (NORMAL); RBC MORPHOLOGY (MULTIPLE) NORMAL APPEARANCE (NORMAL)
[2019-09-12] MEDS: cefTRIAXone 1 GM in SODIUM CHLORIDE 0.9% MINIBAG 100 ML IV SCH (09:10)
[2019-09-12] MEDS: HEPARIN 5,000 UNIT/ML VIAL SUBQ SCH (09:11)
[2019-09-12] MEDS: AZITHROMYCIN 250 MG TABLET PO SCH (09:12)
[2019-09-12] MEDS: INSULIN ASPART 300 UNIT/3 ML PEN SUBQ SCH ×4 (09:13→11:59)
[2019-09-12] MEDS ORDERED: ALBUTEROL NEB 2.5 MG/3 ML INH PRN (10:30)
[2019-09-12] MEDS ORDERED: IPRATROPIUM/ALBUTEROL 3 ML NEB INH SCH (11:00)
--- NOTE | 2019-09-12 12:03 | Discharge Plan ---
"Discharge Plan for SNF / LONG TERM - Discharge Plan And Transition Orders Problem Reviewed?: Yes Disposition: 01 Home, Self Care Condition: Serious Allergies and Adverse Reactions: Allergies Allergy/AdvReac Type Severity Reaction Status Date / Time No Known Drug Allergies Allergy Verified 09/10/19 18:37 Health Concerns: COPD, pneumonia, DM1 Plan of Treatment: pt is prescribe short term of steroid and Inhaler for your COPD. you is prescribed antibiotics for your pneumonia, and continue your home insulin schedule for your diabetes. It is important for you to make medical-compliance. Care Goals: stabilization and improvement of your medical conditions Assessment: discussed with you the care plan, you understood. - SNF / [facility] Transition Orders Admit to (Facility): [facility] Under the care of (Name): Shruthi Hernández Discharge Diagnosis: fever, COPD exacerbation, PNA, DM1, hx of psychiatric disorder, medical non- compliance Medicare Certification Statement: I do not certify that Post Hospital fci care is medically necessary on a continuing basis for any of the conditions for which she/he is receiving care during hospitalization. Notify PCP of admission and forward orders to primary provider for signature. Weight on admission and: Daily Call PCP immediately if weight increases by: 2 kg Other Notification Orders: Call PCP immediately if patient develops dyspnea, chest pain/tightness or edema. House Bowel Program: Yes Additional Bowel Program Orders: If no BM after 2 days, nurse may give M.O.M. 30ml PO PRN and/or ducolax Supp 1 NE and/or ERIKA 250mg P.O., and/or senna 1-2 tabs PO. On day 3 nurse may give repeat above order until residents constipation is resolved. Annual Influenza Vaccine (between May 12 and December 09): Yes Two-step PPD per [facility] [phone] or approved exception documents: Yes Treatments & Other Orders: you may followup your PCP in one week. Should your symptoms return or worsen, you may present ER or call 911 for help Medication Orders: PLEASE REFER TO THE DISCHARGE MEDICATION LIST. Insulin Orders?: Yes - Medications New Prescriptions: Albuterol Sulfate [Proair Hfa Inhaler] 1 - 2 puffs INH Q4H PRN #1 inhaler PRN Reason: Shortness Of Air/Wheezing Azithromycin [Zithromax] 250 mg PO DAILY #4 tablet Cephalexin [Keflex] 250 mg PO QID #20 capsule Ipratropium/Albuterol [Combivent Respimat] 4 gm IH Q6H PRN #1 aer.w.adap PRN Reason: Shortness Of Air/Wheezing predniSONE [Deltasone] 10 mg PO [id number] #[id number] tab - Diet Type: Geriatric Texture: Regular Liquids: Thin May have monthly special meal: Yes - Therapies | Activity Rehabilitation Potential: Maximize functional status Activity: Activity as Tolerated Additional Instructions: you may followup your PCP in one week. Should your symptoms return or worsen, you may present ER or call 911 for help"
--- NOTE | 2019-09-12 12:32 | DISCHARGE SUMMARY ---
"Discharge Summary Admit Date: 09/10/19 Discharge Date: 09/12/19 Discharging Provider: RECIO Primary Care Provider: Dr. Swanson Condition at Discharge: Serious Discharge Disposition: Home, Self Care Discharge Facility Name: [facility] - DIAGNOSES Admission Diagnoses: (1) Fever (2) Confusion (3) COPD exacerbation (4) Type 1 diabetes mellitus with hyperglycemia (5) Living accommodation issues (6) Psychiatric disorder Discharge Diagnoses with Status of Each Condition: (1) Fever resolved. blood culture is negative for bacteremia. it is unclear etiology, it appear from her pulmonary. pt had cough and fever at the admission. pt is prescribed antibiotics Azithromycin and Keflex to finish the treatment course. (2) Confusion stable as her baseline. pt has no focal neurological deficits (3) COPD exacerbation resolved exacerbation. pt has 100% sats on room air. pt is prescribed short term of steroid, proair and combivent breath treatment. (4) Type 1 diabetes mellitus with hyperglycemia resume her home insulin. pt did not make her medical compliance to use insulin per her state, her A1C is 16. I discussed with pt, advise pt make medical- compliance, and followup her PCP to adjust her insulin dosage as needed, pt agreed and understood. Palliative care Litzy also called me for keeping pt daily Lantus as her home meds for her difficult management situation. pt also had diabetes education order in hospital (5) Living accommodation issues pt is directly d/c to [facility] nurse home care (6) Psychiatric disorder stable (7)medical non-compliance discussed with pt, advise pt make medical-compliance - HPI History of Present Illness: refer from Dr. gore's HPI on 09/10/19 This is a 69-year-old female with a past medical history significant for recently diagnosed type 1 diabetes, and reported psychiatric history who presents today complaining of a worsening cough for the past 3 days. Most of the history is obtained from the patient and her caregivers at bedside. The patient states she has had a nonproductive cough that has progressed over the past 3 days. She reports no dyspnea at this time although she has had occasional episodes where she has felt short of breath at rest. She reports no fevers at home but today her caregiver measured her temperature and it was 101. It was checked a couple hours later and it had increased to 102. They were concerned for pneumonia and that is why she was brought to the emergency department. The patient denies any chest pain, nausea, vomiting, abdominal pain, dysuria, urgency. She reports no focal weakness. She does complain of feeling generally weak. Both the caregivers had been recently sick but both are recovering from the flu. Her caregiver state that normally she is able to ambulate on her own but this morning should not get out of bed until 11 AM which is quite late for her. She was then very weak and not eating as much as she usually does. They state that she was recently diagnosed with type 1 diabetes about 1 month ago. She was prescribed Lantus which she has been taking nearly every day although she not take it today. She is now on 17 units of Lantus which is given to her by her caregiver usually around noon time. The patient is not adherent to a carb controlled diet. She also drinks about 6 cans of Diet Coke a day. She is unable to check her own blood sugars and does not administer her own insulin. Her caregiver checks her blood sugar twice a day and states it is usually in the 500s to 600s. Patient does not take any other medications except for Lantus. She reports that she continues to smoke about 1 cigarette a day although her caregiver states she smokes more than that. The patient states she smoked in the past about 10 cigarettes a day although she cannot recall for how long she has been smoking for. She does not drink alcohol. Her caregivers also states she has been more confused than usual today. Earlier on in the day she did not know her date of . Right now, she knows the year and her date of . She is able to name her caregivers who are at bedside. The patient had previously been living alone up until when she m venu in with her current caregivers, Lizeth and Cirilo. She has been losing about 10 pounds a month until she was diagnosed with type 1 diabetes one month ago. At the beginning of August, she has gained approximately 10 pounds. In the emergency department, she is found to be febrile temperature of 30.9 degrees. Tachycardic with a heart rate of 117. Hypertensive with a blood pressure of 180/98. She was also tachypneic in the low 20s and saturating 94% on room air. Her labs were unremarkable except for an anion gap of 14 and a blood glucose of 313. Influenza was negative. Chest x-ray showed no acute abnormalities although was suggestive of emphysema. She was given a DuoNeb breathing treatment as well as ceftriaxone azithromycin in the emergency department. Given the fever, COPD exacerbation and concern for her altered mental status, medicine was consulted for admission. Did discuss goals of care with the patient and her caregivers at bedside. The patient states that she would like to be a DNR. She has reportedly filled out a POLST form in the past which states she would not want aggressive measures. At this time, she is agreeable to IV fluids and antibiotics but she would not want to be transferred to intensive care unit for more aggressive measures. This was confirmed by her caregivers. - CONSULTS | PROCEDURES Consultations: pallitive care, Ms. Litzy Horn Procedures: palliative care - HOSPITAL COURSE Hospital Course: pt was admitted for fever and cough. pt was treated with antibiotics, steroid and breathing treatment of her COPD. pt also had hyperglycemia and slight elevated ketones in serum. pt was given IVF of NS and insulin at hospital. after treatment, pt become hemodynamic stable. blood culture is negative for bacteremia. the detail hospital course is as the following. (1) Fever resolved. blood culture is negative for bacteremia. it is unclear etiology. pt is prescribed antibiotics Azithromycin and Keflex to finish the treatment course. (2) Confusion stable as her baseline. pt has no focal neurological deficits (3) COPD exacerbation resolved exacerbation. pt has 100% sats on room air. pt is prescribed short term of steroid, proair and combivent breath treatment. (4) Type 1 diabetes mellitus with hyperglycemia resume her home insulin. pt did not make her medical compliance to use insulin per her state, her A1C is 16. I discussed with pt, advise pt make medical- compliance, and followup her PCP to adjust her insulin dosage as needed, pt agreed and understood. Palliative care Litzy also called me for keeping pt daily Lantus as her home meds for her difficult management situation. pt also had diabetes education order in hospital (5) Living accommodation issues pt is directly d/c to [facility] home care (6) Psychiatric disorder stable (7)medical non-compliance discussed with pt, advise pt make medical-compliance - ALLERGIES Allergies/Adverse Reactions: Allergies Allergy/AdvReac Type Severity Reaction Status Date / Time No Known Drug Allergies Allergy Verified 09/10/19 18:37 - MEDICATIONS Home Medications: Ambulatory Orders Medication Instructions Recorded Confirmed Hydrocortisone 1% Oint 1 applic TOP PRN PRN 09/11/19 09/11/19 [Hydrocortisone] Insulin Glargine,Hum.rec.anlog 15 units SUBQ DAILY 09/11/19 09/11/19 [Basaglar Kwikpen U-100] Nystatin Cream [Mycostatin Cream] 1 applic VG DAILY 09/11/19 09/11/19 Albuterol Sulfate [Proair Hfa 1 - 2 puffs INH Q4H PRN #1 inhaler 09/12/19 Inhaler] Azithromycin [Zithromax] 250 mg PO DAILY #4 tablet 09/12/19 Cephalexin [Keflex] 250 mg PO QID #20 capsule 09/12/19 Ipratropium/Albuterol [Combivent 4 gm IH Q6H PRN #1 aer.w.adap 09/12/19 Respimat] predniSONE [Deltasone] 10 mg PO [id number] #11 tab 09/12/19 - PHYSICAL EXAM AT DISCHARGE General Appearance: positive: No acute distress, Alert. negative: Lethargic Eyes Bilateral: positive: Normal inspection, PERRL, EOMI. negative: No lid in flammation ENT: positive: ENT inspection nml, Pharynx nml, No signs of dehydration. negative: Purulent nasal drainage Neck: positive: Nml inspection, Thyroid nml, No JVD, Trachea midline. negative: Thyromegaly, Lymphadenopathy (R), Lymphadenopathy (L), Stiff neck, Tracheal deviation Respiratory: positive: Chest non-tender, No respiratory distress, Other (diminished lung sound bilaterally). negative: Wheezes, Rales, Rhonchi Cardiovascular: positive: Regular rate & rhythm, No murmur, No gallop. negative: Irregularly irregular, Extrasystoles, Tachycardia, Bradycardia, JVD present, Systolic murmur, Diastolic murmur Peripheral Pulses: positive: 2+ Abdomen: positive: Non-tender, No organomegaly, Nml bowel sounds, No distention. negative: Tenderness, Guarding, Rebound Back: positive: Nml inspection. negative: CVA tenderness (R), CVA tenderness (L) Skin: positive: Color nml, No rash, Warm, Dry. negative: Cyanosis, Diaphoresis, Pallor Extremities: positive: Non-tender, Full ROM, Nml appearance. negative: Calf tenderness, Cr's sign/cords Neurologic/Psychiatric: positive: Motor nml, Sensation nml. negative: Weakness, Sensory loss, Facial droop, Slurred/abnml speech, Depressed mood/affect - LABS Result Diagrams: 09/12/19 05:45 09/12/19 05:45 - FOLLOW UP Follow Up: pt is prescribe short term of steroid and Inhaler for your COPD. you is prescribed antibiotics for your pneumonia, and continue your home insulin schedule for your diabetes. It is important for you to make medical-compliance. you may followup your PCP in one week. Should your symptoms return or worsen, you may present ER or call 911 for help - TIME SPENT Time Spent in Discharge (Minutes): 40"
[2019-09-12 12:37] VITALS: BP 148/52
[2019-09-12] MEDS ORDERED: methylPREDNISolone SUCCINATE 40 MG/ML VIAL IVP SCH (14:00)
[2019-09-12] MEDS ORDERED: INSULIN GLARGINE 300 UNIT/3 ML PEN SUBQ SCH (21:00)
== END 2019-09-12 14:21 | disposition home or self-care (01) | DRG 191 ==
LOC: ED 18:31 → MS2 21:44
PROVIDERS: ADMIT Internal Medicine; ATTEND Nurse Practitioner Gerontology
DX: J44.1 Chronic obstructive pulmonary disease with (acute) exacerbation (principal); J43.9 Emphysema, unspecified; Z68.1 Body mass index [BMI] 19.9 or less, adult; E10.9 Type 1 diabetes mellitus without complications; I10 Essential (primary) hypertension; F17.210 Nicotine dependence, cigarettes, uncomplicated; F03.90 Unspecified dementia, unspecified severity, without behavioral disturbance, psychotic disturbance, mood disturbance, and anxiety; F32.9 Major depressive disorder, single episode, unspecified; F41.9 Anxiety disorder, unspecified; Z79.84 Long term (current) use of oral hypoglycemic drugs; E10.65 Type 1 diabetes mellitus with hyperglycemia; R50.81 Fever presenting with conditions classified elsewhere; R41.0 Disorientation, unspecified; T38.3X6A Underdosing of insulin and oral hypoglycemic [antidiabetic] drugs, initial encounter; Y92.009 Unspecified place in unspecified non-institutional (private) residence as the place of occurrence of the external cause; Z91.128 Patient's intentional underdosing of medication regimen for other reason; R63.4 Abnormal weight loss; Z91.11 Patient's noncompliance with dietary regimen; Z72.0 Tobacco use; Z51.5 Encounter for palliative care; Z66 Do not resuscitate; Z59.0 Homelessness; Z86.59 Personal history of other mental and behavioral disorders; Z86.79 Personal history of other diseases of the circulatory system
CPT/HCPCS: 36415; 71046; 80048; 80053; 81001; 82009; 83036; 83605; 83690; 83735; 84100; 84132; 85025; 87040; 87086; 87275; 87276; 93005; 94640; 97116; 97161; 99285; A9270; J1815; J7512; 80306; 80320; 81003

== ENCOUNTER 2019-09-16 10:30 | Outpatient (CLI) | payer MEDICARE ==
--- NOTE | 2019-09-16 13:20 | CONSULTATION NOTE ---
Palliative Care Follow Up - Referral Referring Provider: Shruthi Swanson PA-C Time of Visit: [id number] Referral setting: Assisted living Referral Reason: COPD exacerbation/diarrhea/DM1 - Information Sources Records reviewed: Previous records reviewed History/Review of Systems obtained from: Patient, Caregiver (at facilility) Exam limitations: Clinical condition (patient with little insight to health issues) - History of Present Illness Update Brief HPI Update: This is a complicated 69-year-old woman who was recently diagnosed with diabetes type 1, and had refused initially to be treated with insulin. With much work and controlling, through her friend tammy PECKTammy Stanley, and myself we did initiate home health nursing services, and have been managing at least to get a daily dose of Basaglar, patient has not been able to do this independently nor check blood sugars. She has been having ongoing weight loss, signs and symptoms of hyperglycemia, but has been coming down slowly into the mid 300s versus 600s. Unfortunately she has underlying COPD, and developed a cold, with presentation of an exacerbation of her COPD, pneumonia, and was treated with antibiotics and steroids. Unfortunately at this point, they had been making a plan for Lizeth with whom Harrison is currently living and doing the blood sugars and insulin, for respite to be able to take her vacation. Harrison is currently in a respite stay at [facility], unfortunately she has developed diarrhea, some increased weakness, and is having some difficulty managing adjustment to her setting. She has stayed mostly in her room, and now with the diarrhea is afraid to go down for meals. She does stay an apartment quite a distance, has a walker and finding that too long to navigate even when she was feeling better. They have had her assisting with her administration of her KwikPen, they are unable to do blood sugars, and home health RN saw her on Monday, will see her again Monday and Monday of this week. Patient has had some incontinence with the diarrhea, she did have a diarrhea stool was there, light brown watery, no pain or discomfort with cramping, no bloody stool, at this point no suspicion for C. difficile. She is completed her azithromycin, and on the last couple doses of her cephalexin. Her lungs are diminished in the bases but clear, she reports improved respiratory status, only slight cough, and denies any wheezing or tightness. She has not been using her inhalers, though I suspect she does not know to ask for them. Social History - Living Situation Living arrangement: Assisted living Living Situation: Alone Support System: Patient's D TERESA Stanley made arrangements for Gabriela phone number [phone] to check on her daily. Lynn is currently on vacation, is returning on the , and the bigger picture they do need a longer term plan. I did speak briefly with Anne the D ON, given patient's level of care, would still be around $4- $5000 a month. Medications/Allergies - Medications Home Medications: Ambulatory Orders Medication Instructions Recorded Confirmed Hydrocortisone 1% Oint 1 applic TOP PRN PRN 09/11/19 09/16/19 [Hydrocortisone] Insulin Glargine,Hum.rec.anlog 15 units SUBQ DAILY 09/11/19 09/16/19 [Basaglar Kwikpen U-100] Albuterol Sulfate [Proair Hfa 1 - 2 puffs INH Q4H PRN #1 inhaler 09/12/19 09/16/19 Inhaler] Ipratropium/Albuterol [Combivent 4 gm IH Q6H PRN #1 aer.w.adap 09/12/19 09/16/19 Respimat] Fluconazole [Diflucan] 150 mg PO ONCE 09/16/19 09/16/19 Loperamide [Imodium] 2 mg PO TID PRN 09/16/19 09/16/19 predniSONE [Deltasone] 10 mg PO [id number] 09/16/19 09/16/19 - Allergies Allergies/Adverse Reactions: Allergies Allergy/AdvReac Type Severity Reaction Status Date / Time No Known Drug Allergies Allergy Verified 09/10/19 18:37 Review of Systems - Constitutional Constitutional: reports: Fatigue, Weakness (worse last couple of days with diarrhea), Weight stable (97.3). denies: Fever, Chills - Eyes Eyes: reports: Vision loss, Corrective lenses - Ears, Nose & Throat Ears, Nose & Throat: reports: Hearing loss, Dental decay - Cardiovascular Cardiovascular: reports: Lightheadedness, Exertional dyspnea, Decr. exercise tolerance - Respiratory Respiratory: reports: Cough (almost resolved), SOB with exertion. denies: Wheezing, SOB at rest - Gastrointestinal Gastrointestinal: reports: Diarrhea (reports 2 days with watery diarrhea; no abd cramping; just urgency; has been incontinent; keeping her from going downstairs), Early satiety, Good appetite, Other (dislikes some of the food choices; can't go downstairs with diarrhea;). denies: Bloody stools, Nausea - Genitourinary Genitourinary: reports: Incontinence (improved), Other (hx of vaginal candidiasis; no vag supp available-will do oral x 1;) - Musculoskeletal Musculoskeletal: reports: Muscle weakness, Assistive devices (using walker; feels too far even when feeling better to go downstairs; apt at end of [place] and long distance) - Integumentary Integumentary: reports: Dryness - Neurological Neurological: reports: General weakness, Memory problems - Psychiatric Psychiatric: reports: Anxiety - Endocrine Endocrine: reports: Other (diabetes type one; unable to do glucose checks; taking 15 units basalger with kwickpen; staff assisting with patient giving independently) - Hematologic/Lymphatic Hematologic/Lymphatic: reports: Recurrent infections (recent COPD exacerbation/UIT) - All Other Systems All Other Systems: reports: Other (limited ROS with patient PILOT POINT/simple understanding) Physical Exam - Vital Signs Temperature: 96.8 C Pulse Rate: 72 Respiratory Rate: 18 O2 Saturation: 93 (ra @ rest) Blood Pressure: 132/74 - Physical Exam General Appearance: positive: Alert, Anxious Eyes Bilateral: positive: Normal inspection ENT: positive: No signs of dehydration Neck: positive: Trachea midline. negative: Lymphadenopathy (R), Lymphadenopathy (L) Cardiovascular: positive: Regular rate & rhythm, Systolic murmur Respiratory: positive: No respiratory distress, Diminished in bases. negative: Wheezes, Rales, Rhonchi Abdomen: positive: Non-tender, Soft Skin: positive: Pallor, Dryness. negative: Rash (groin rash resolved) Extremities: positive: No pedal edema Neurologic/Psychiatric: positive: Oriented x3, Mood/affect nml, Weakness, Flat affect Palliative Care - POLST Patient has POLST: Yes POLST Status: DNR, Comfort Measures Pain: No pain Tiredness/Fatigue: Moderate (4-6) Drowsiness/Sedation: Moderate (4-6) (reports sleeps all the time) Nausea: None Anorexia: Mild (1-3) Dyspnea: Mild (1-3) (with activity) Depression: Mild (1-3) Anxiety: Moderate (4-6) Feelings of wellbeing/Perceived Quality of Life: Fair, Acceptable Sleep: Sleeps well Performance Status: Patient with her weight loss, and with her acute hospitalization, has had a decline in functional status. Patient even at baseline, was quite weak, only able to ambulate short distances in her home with Lizeth. Lynn was assisting her with bathing, patient has not bathed since discharge from the hospital. She is anxious and does not feel comfortable with the current set up. She reports she is "washing the important parts". Did encourage her with assistance, to let them help her at least shower once. Given her resistance and anxiety I suspect this most likely will happen. - Palliative Care Discussion: Patient continues with suspicions, does not want to be "kicked out", she does not want to be homeless again. She does understand and miss Lizeth, as well as her dogs. She presents is quite simple, but is able to engage in conversation and about her values and wishes. She is worried about the long-term plan, and what is going to happen to her. She does very much enjoy the visits from Gabriela. She is aware the home health nurses coming tomorrow, when Lizeth returns is need to continue to work on a long-term plan. Impression and Recommendations - Palliative Care Impression: This is a 69-year-old woman who is quite complex, related to her underlying mental health issues, and social situation. She is currently at a respite stay at [facility], she is recently had a hospitalization for COPD exacerbation and pneumonia, and now presents with side effects of the antibiotics with diarrhea. Palliative care to continue provide support as well as home health nursing to maximize patient safety and quality of life. Recommendations/Counseling Done: 1. Diabetes type 1. Patient currently continues on prednisone taper, she has fluctuating levels of food intake, as well as food choices. She is trying not to drink as much Diet Coke and more water. They are unable to do blood sugar checks at the facility, so home health RN will check it tomorrow as well as on Monday. Currently on 15 units of Basaglar, will increase to 18 units if FBS tomorrow is 350 or greater. If not we will continue at 15 units, and readjust when done with prednisone. 2. Vaginal candidiasis. Patient does not present with any groin rash, but it is significant history of vaginal candidiasis, she did not get her vaginal tablets on discharge. Given the setting in patients compliance issues, will go ahead and order one-time dose of Diflucan 150 mg. 3. Diarrhea. Patient does not present with any symptoms of C. difficile, though is at high risk. We will go ahead though given her high risk of sequela for diarrhea, dehydration, and worsening nutritional status, will initiate Imodium 4 mg when available, and encouraged to offer 2 mg 3 times daily for symptoms of diarrhea as patient would not be able to ask for it. 4. Protein calorie malnutrition. Patient continues at 97.3 pounds, unclear if she ate yesterday secondary to afraid of the diarrhea. They are going to supplement trays for her in the short-term. Did review things that patient like to eat, including sandwiches, eggs lemus and toast for breakfast, encouraged patient to go downstairs. Care managers that they can give her a wheelchair assist down to the dining room, request that they do that when patient's diarrhea resolves. 5. Advanced care planning. Patient does have POLST in place is no code and comfort care, patient continues to be quite frail, she did accept hospitalization this last time, though remains somewhat suspicious with any healthcare intervention. We will continue to work with patient to maximize appropriate medication/dx management and focus on quality of life issues. Time Spent: 60 minutes with greater than 50% of this done in counseling and coordination of care regarding management of diarrhea, DM 1, follow-up with home health, and clinical staff at facility. [facility]
== END 2019-09-16 10:31 | disposition home or self-care (01) ==
LOC: PC 10:30
PROVIDERS: ATTEND Nurse Practitioner Adult Health
DX: Z51.5 Encounter for palliative care (principal); E10.65 Type 1 diabetes mellitus with hyperglycemia; R19.7 Diarrhea, unspecified; E46 Unspecified protein-calorie malnutrition; R63.4 Abnormal weight loss; B37.3 Candidiasis of vulva and vagina; Z79.899 Other long term (current) drug therapy; Z79.4 Long term (current) use of insulin; Z66 Do not resuscitate

== ENCOUNTER 2019-09-21 19:34 | Outpatient (CLI) | payer MEDICARE | END 2019-09-21 19:35 | disposition critical access hospital (66) | LOC: EMS 19:34 | PROVIDERS: ATTEND Surgery | DX: M25.552 Pain in left hip (principal); W01.0XXA Fall on same level from slipping, tripping and stumbling without subsequent striking against object, initial encounter; Z91.81 History of falling; Y92.001 Dining room of unspecified non-institutional (private) residence as the place of occurrence of the external cause | CPT/HCPCS: A0425; A0429 ==

== ENCOUNTER 2019-09-21 19:52 | Inpatient (IN) | payer MEDICARE ==
--- NOTE | 2019-09-21 20:29 | ED Physician Documentation ---
PD HPI Fall - Stated complaint Stated Complaint: L HIP PX/FALLS - Chief complaint Chief Complaint: General - History obtained from History obtained from: Patient, Other (friend/POA) - History of Present Illness Mechanism of injury: Unknown Fall distance: Sitting position, From bed Where injury occurred: Other ([facility] assisted living) Timing - onset: Today, Yesterday Injury(ies) location: Head, Left Lower Extremity Quality of pain: Pain Associated symptoms: No: LOC, AMS, Neck pain, Weakness Symptoms improve with: Rest Worsens with: Movement Contributing factors: No: Anticoagulated, Intoxicated Recently seen: Admitted (09/10/19 to [facility]) - Additional information Additional information: friend/POA returned from vacation earlier today and went to take patient home from [facility]; patient was staying at [facility] for short stay while friend/POA went on vacation. Friend/POA says that she was told patient fell yesterday and hit her head and left hip, and then fell again today at 5 PM out of bed, worsening the left hip pain. Patient's contribution to HPI/ROS is limited; it is unclear if she has difficulty understanding or hearing (or both) many of my questions Review of Systems Musculoskeletal: reports: Joint pain (left hip), Pain with weight bearing (POA says patient was able to partially weight-bear for approximately fifteen steps tonight before having too much pain in left hip to continue to try to bear any weight). denies: Neck pain, Back pain Neurologic: reports: Head injury. denies: Focal weakness, Numbness, Headache PD PAST MEDICAL HISTORY - Past Medical History Cardiovascular: Hypertension Respiratory: COPD Neuro: Dementia Endocrine/Autoimmune: Type 1 diabetes GI: None BRAZER RESISTANCE: Other : Incontinence HEENT: None Psych: Depression, Anxiety Musculoskeletal: Other Derm: None - Past Surgical History Past Surgical History: No - Present Medications Home Medications: Ambulatory Orders Medication Instructions Recorded Confirmed Hydrocortisone 1% Oint 1 applic TOP PRN PRN 09/11/19 09/22/19 [Hydrocortisone] Insulin Glargine,Hum.rec.anlog 15 units SUBQ DAILY 09/11/19 09/22/19 [Basaglar Kwikpen U-100] Albuterol Sulfate [Proair Hfa 1 - 2 puffs INH Q4H PRN #1 inhaler 09/12/19 09/22/19 Inhaler] Ipratropium/Albuterol [Combivent 4 gm IH Q6H PRN #1 aer.w.adap 09/12/19 09/16/19 Respimat] Loperamide [Imodium] 2 mg PO TID PRN 09/16/19 09/22/19 - Allergies Allergies/Adverse Reactions: Allergies Allergy/AdvReac Type Severity Reaction Status Date / Time No Known Drug Allergies Allergy Verified 09/10/19 18:37 - Social History Does the pt smoke?: Yes Smoking Status: Current every day smoker Does the pt drink ETOH?: No Does the pt have substance abuse?: No - Immunizations Immunizations are current?: No - POLST Patient has POLST: Yes PD ED PE NORMAL - Vitals Vital signs reviewed: Yes - General General: No acute distress, Other (thin, frail appearance. oriented x 2 (place, person, not month/year)) - HEENT HEENT: Atraumatic, PERRL, EOMI, Moist mucous membranes - Neck Neck: Supple, no meningeal sign, No bony TTP - Cardiac Cardiac: RRR, No murmur - Respiratory Respiratory: No respiratory distress, Clear bilaterally - Abdomen Abdomen: Soft, Non tender - Back Back: No spinal TTP - Derm Derm: Normal color, Warm and dry - Extremities Extremities: No edema PD ED PE EXPANDED - Extremities Extremities: Limited ROM (obvious painful discomfort with attempts at either active or passive ROM left hip. mild tenderness with palpation (compression) at left hip, lateral aspect), Pedal Pulses Present Results - Vitals Vitals: Vital Signs - 24 hr 09/21/19 19:57 Temperature 37.9 C H Heart Rate 74 Respiratory 18 Rate Blood Pressure 161/70 H O2 Saturation 94 Oxygen O2 Source Room air - Labs Labs: Laboratory Tests 09/21/19 09/21/19 09/21/19 23:30 23:37 23:37 WBC 9.9 RBC 3.86 L Hgb 12.2 Hct 38.5 MCV 99.7 H MCH 31.6 H MCHC 31.7 L RDW 13.0 Plt Count 238 MPV 9.7 Neut # (Auto) 7.1 H Lymph # (Auto) 1.6 [place] # (Auto) 0.8 Eos # (Auto) 0.1 Baso # (Auto) 0.1 Absolute Nucleated RBC 0.00 Nucleated RBC % 0.0 PT INR APTT Sodium 140 Potassium 4.0 Chloride 105 Carbon Dioxide 28 Anion Gap 7.0 BUN 20 Creatinine 0.6 Estimated GFR (MDRD) 99 Glucose 374 H Calcium 8.5 Total Bilirubin 0.5 AST 15 ALT 27 Alkaline Phosphatase 72 Total Protein 5.5 L Albumin 2.8 L Globulin 2.7 Albumin/Globulin Ratio 1.0 Lipase 35 Urine Color YELLOW Urine Clarity CLEAR Urine pH 6.0 Ur Specific [place] 1.010 Urine Protein NEGATIVE Urine Glucose (UA) >=1000 H Urine Ketones NEGATIVE Urine Occult Blood NEGATIVE Urine Nitrite NEGATIVE Urine Bilirubin NEGATIVE Urine Urobilinogen 0.2 (NORMAL) Ur Leukocyte Esterase NEGATIVE Ur Microscopic Review NOT INDICATED Urine Culture Comments NOT INDICATED 09/21/19 23:37 WBC RBC Hgb Hct MCV MCH MCHC RDW Plt Count MPV Neut # (Auto) Lymph # (Auto) [place] # (Auto) Eos # (Auto) Baso # (Auto) Absolute Nucleated RBC Nucleated RBC % PT 11.4 INR 1.0 APTT 26.7 Sodium Potassium Chloride Carbon Dioxide Anion Gap BUN Creatinine Estimated GFR (MDRD) Glucose Calcium Total Bilirubin AST ALT Alkaline Phosphatase Total Protein Albumin Globulin Albumin/Globulin Ratio Lipase Urine Color Urine Clarity Urine pH Ur Specific [place] Urine Protein Urine Glucose (UA) Urine Ketones Urine Occult Blood Urine Nitrite Urine Bilirubin Urine Urobilinogen Ur Leukocyte Esterase Ur Microscopic Review Urine Culture Comments - Rads (name of study) head CT Radiology: Prelim report reviewed, See rad report left hip xrays Radiology: Prelim report reviewed, See rad report left hip CT Radiology: Prelim report reviewed, See rad report PD MEDICAL DECISION MAKING - ED course Complexity details: reviewed old records, reviewed results, re-evaluated patient, considered differential, d/w patient, d/w family ED course: D/W Dr. Meza, recommends admit to hospitalist. D/W Dr. Grayson, will admit to hospitalist service and consult orthopedic surgeon Departure - Departure Disposition: 66 [facility] DC/Xfer Clinical Impression: Closed left hip fracture Qualifiers: Encounter type: initial encounter Qualified Code(s): S72.002A - Fracture of unspecified part of neck of left femur, initial encounter for closed fracture Condition: Stable Discharge Date/Time: 09/22/19 00:09
--- NOTE | 2019-09-21 21:11 | XRAY Report ---
Reason: fall, hip pain Procedure Date: 09/21/2019 Accession Number: [id number] / [id number] Procedure: XR - Hip w/Pelvis 2-3V LT CPT Code: Final Report FULL RESULT: EXAM: LEFT HIP RADIOGRAPHY EXAM DATE: 09/21/2019 09:01 PM. CLINICAL HISTORY: Fall, hip pain. COMPARISON: None. TECHNIQUE: 2 views. FINDINGS: Bones: Osteopenia limits evaluation for nondisplaced fractures. No definite displaced fractures identified on this exam. Joints: Hip joints congruent. Soft Tissues: Atherosclerotic chronic vascular calcifications. IMPRESSION: 1. Osteopenia limits evaluation for nondisplaced fractures. 2. No definite displaced fractures identified on this exam. If there is clinical suspicion for a nondisplaced fracture, CT scan would be recommended. RADIA
--- NOTE | 2019-09-21 21:15 | CT Report ---
Reason: fall, head injury Procedure Date: 09/21/2019 Accession Number: [id number] / [id number] Procedure: CT - HEAD WO CPT Code: Final Report FULL RESULT: EXAM: CT HEAD EXAM DATE: 09/21/2019 08:54 PM. CLINICAL HISTORY: Fall, head injury. COMPARISON: HEAD W/O 08/26/2015 4:26 PM. TECHNIQUE: Multiaxial CT images were obtained from the foramen magnum to the vertex. Reformats: Sagittal and coronal. IV contrast: None. In accordance with CT protocol optimization, one or more of the following dose reduction techniques were utilized for this exam: automated exposure control, adjustment of mA and/or KV based on patient size, or use of iterative reconstructive technique. FINDINGS: Parenchyma: No intraparenchymal hemorrhage. No evidence of mass, midline shift, or CT findings of infarction. Camargo-white differentiation is distinct. Moderate diffuse parenchymal volume loss. Periventricular white matter hypoattenuation, statistically most likely representing chronic microangiopathic white matter changes. Extraaxial Spaces: No subdural or epidural collections identified. Ventricles: Normal in size and position. Sinuses and Orbits: Bilateral maxillary and sphenoid sinus disease. Bones: No evidence of fracture or calvarial defect. Other: None. IMPRESSION: 1. No acute intracranial findings. 2. Moderate diffuse parenchymal volume loss. 3. Chronic microangiopathic white matter changes. 4. Bilateral maxillary and sphenoid sinus disease. RADIA
--- NOTE | 2019-09-21 23:02 | CT Report ---
Reason: fall, left hip pain Procedure Date: 09/21/2019 Accession Number: [id number] / [id number] Procedure: CT - LOWER EXTREMITY WO - LT CPT Code: Final Report FULL RESULT: EXAM: LEFT HIP CT WITHOUT CONTRAST EXAM DATE: 09/21/2019 10:50 PM. CLINICAL HISTORY: Fall, left hip pain. COMPARISON: HIP W/PELVIS 2-3V LT 09/21/2019 8:36 PM. TECHNIQUE: Thin-section axial images were acquired of the hip without contrast. Post-processing: Coronal and sagittal reformats. Other: None. In accordance with CT protocol optimization, one or more of the following dose reduction techniques were utilized for this exam: automated exposure control, adjustment of mA and/or KV based on patient size, or use of iterative reconstructive technique. FINDINGS: Bones: Minimally impacted, incomplete intertrochanteric fracture of the left hip, involving the superior cortex. Incidental bone island in the left iliac. Joints: Mild osteoarthritis. Musculature: Normal. No fatty atrophy. Other: The visualized intraperitoneal structures are unremarkable. IMPRESSION: Minimally impacted, incomplete intertrochanteric fracture of the left hip. RADIA
[2019-09-21] MEDS ORDERED: SODIUM CHLORIDE 0.9% 1,000 ML IV STA (23:21)
[2019-09-21] MEDS ORDERED: oxyCODONE 5 MG TABLET PO PRN (23:38)
[2019-09-21] MEDS ORDERED: ACETAMINOPHEN 325 MG TABLET PO PRN (23:38)
[2019-09-21] MEDS ORDERED: SODIUM CHLORIDE 0.9% 1,000 ML IV SCH (23:45)
--- NOTE | 2019-09-21 23:46 | HISTORY & PHYSICAL EXAMINATION ---
Chief Complaint - Chief Complaint Chief Complaint: fall, hip fracture History of Present Illness - Admitted From Admitted From:: [facility] - History Obtained From Records Reviewed: yes History obtained from: patient - History of Present Illness HPI Comment/Other: Patient is a 69 y/o female who presents from [facility] where she resides after a mechanical fall. It initially happened 2 days ago then again tonight. She hit her forehead but did not black out. She uses a walker to get around but she says it gave way from under her. A caregiver who glass checker on her and brought her meal found her and called EMS. Brain CT in the ED was unremarkable for any bleed or fracture. CT of lower extremity showed an left incomplete intratrochanteric fracture. Dr Meza (orthopedics) was contacted by the ED and is agreeable to see the patient. At bedside she appears to be resting comfortably. She denies chest pain, dyspnea, abd pain, n/v/d, fever or chill. 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 Social History Notes: The patient was previously living on her own with her dog in an apartment. He had been losing weight and was unable to take care of herself and so she moved in with her friend, Lizeth around Thanksgiving time. She had been staying with Lizeth and Cirilo since then and they have been caring for her. She areas one who administers the patient's insulin and checks her b lood sugars. They have met with Litzy Perez of palliative care earlier this month. The patient has home health visiting twice a day. Lizeth is concerned that the patient will be unable to take care of herself at home when she is going on vacation next month. Patient reports smoking 1 cigarette a day although she reports that she smokes more than that. The patient previously smoked 10 cigarettes a day although she cannot recall for how long she has been smoking for. She does not drink alcohol. - Substance History Use: Uses substance without health or social issues: Tobacco (smokes 2 cigerettes a day) - POLST Patient has POLST: Yes POLST Status: DNR Meds/Allgy - Home Medications Home Medications: Ambulatory Orders Medication Instructions Recorded Confirmed Hydrocortisone 1% Oint 1 applic TOP PRN PRN 09/11/19 09/16/19 [Hydrocortisone] Insulin Glargine,Hum.rec.anlog 15 units SUBQ DAILY 09/11/19 09/16/19 [Basaglar Kwikpen U-100] Albuterol Sulfate [Proair Hfa 1 - 2 puffs INH Q4H PRN #1 inhaler 09/12/19 09/16/19 Inhaler] Ipratropium/Albuterol [Combivent 4 gm IH Q6H PRN #1 aer.w.adap 09/12/19 09/16/19 Respimat] Loperamide [Imodium] 2 mg PO TID PRN 09/16/19 09/16/19 - Allergies Allergies/Adverse Reactions: Allergies Allergy/AdvReac Type Severity Reaction Status Date / Time No Known Drug Allergies Allergy Verified 09/10/19 18:37 Review of Systems - Constitutional Constitutional: denies: Fever, Chills - Eyes Eyes: denies: Vision loss - Ears, Nose & Throat Ears, Nose & Throat: reports: Hearing loss. denies: Vertigo - Cardiovascular Cariovascular: denies: Irregular heart rate, Palpitations, Chest pain, Edema, Lightheadedness, Syncope - Respiratory Respiratory: denies: Sputum production, Wheezing, SOB at rest, SOB with exertion - Gastrointestinal Gastrointestinal: denies: Abdominal pain, Abdominal distention, Constipation, Diarrhea, Nausea, Vomiting - Genitourinary Genitourinary: denies: Dysuria, Frequency, Urgency, Hematuria - Musculoskeletal Musculoskeletal: reports: Joint pain (left hip). denies: Muscle pain, Back pain - Integumentary Integumentary: denies: Rash, Pruritis, Lesions - Neurological Neurological: reports: Memory problems. denies: General weakness - Psychiatric Psychiatric: reports: Depression, Anxiety - Endocrine Endocrine: denies: Polyuria, Polydypsia - Hematologic/Lymphatic Hematologic/Lymphatic: denies: Anemia, Bruising, Petechiae Prior Level of Functionality: She resides at [facility]. Get around using a walker. Her meals are delivered to her 3X daily. She relies on a friend Lizeth for assistance. She hd been loosing significant weight lately and was unable to take care of herself at home prior to going to [facility]. Exam - Vital Signs Vital Signs: Vital Signs x48h Temp Pulse Resp BP Pulse Ox 09/21/19 23:38 66 20 161/77 H 94 09/21/19 19:57 37.9 C H 74 18 161/70 H 94 - Physical Exam General Appearance: positive: Alert, Moderate distress Eyes Bilateral: positive: Normal inspection, PERRL, EOMI ENT: positive: ENT inspection nml, No signs of dehydration Neck: positive: Nml inspection, No JVD, Trachea midline Respiratory: positive: Chest non-tender, No respiratory distress, Breath sounds nml Cardiovascular: positive: Regular rate & rhythm, No murmur Abdomen: positive: Non-tender, No organomegaly, Nml bowel sounds, No distention. negative: Guarding, Rebound Back: positive: Nml inspection Skin: positive: Color nml, No rash, Warm, Dry Extremities: positive: No pedal edema, Other (left hip pain) Neurologic/Psychiatric: positive: Oriented x3, Mood/affect nml Conclusion/Plan - Problem List (1) Closed left hip fracture Conclusion/Plan: NPO. IV hydration Pain management. Orthopedic Dr Meza consulted and will see patient Patient has 2 risk factors with a revised cardiac risk index of 2.4% for a cardiac event during surgery Qualifiers: Encounter type: initial encounter Qualified Code(s): S72.002A - Fracture of unspecified part of neck of left femur, initial encounter for closed fracture (2) Type 1 diabetes mellitus with hyperglycemia Conclusion/Plan: Poorly controlled Lantus 15 units qpm Low dose SSI. Accu checks q6hrs while npo (3) COPD (chronic obstructive pulmonary disease) Conclusion/Plan: Not in exacerbation Will resume home regimen - Lab Results Fish Bones: 09/21/19 23:37 09/21/19 23:37 Core Measures - Anticipated LOS I expect patient to be DC'd or transferred within 96 hours.: Yes - DVT/VTE - Prophylaxis VTE/DVT Device ordered at admit?: Yes VTE/DVT Prophylaxis med ordered at admit?: Yes
[2019-09-21 23:48] LABS: BASOPHILS # (AUTO) 0.1 10^3/uL (0.0-0.1); BASOPHILS % (AUTO) 0.7 %; EOSINOPHILS # (AUTO) 0.1 10^3/uL (0.0-0.7); EOSINOPHILS % (AUTO) 1.1 %; HGB - HEMOGLOBIN 12.2 g/dL (12.0-16.0); LYMPHOCYTES # (AUTO) 1.6 10^3/uL (1.5-3.5); LYMPHOCYTES % (AUTO) 16.3 %; MEAN CORPUSCULAR HEMOGLOBIN 31.6 pg (27.0-31.0); MEAN CORPUSCULAR HGB CONC 31.7 g/dL (32.0-36.0); MEAN CORPUSCULAR VOLUME 99.7 fL (81.0-99.0); MEAN PLATELET VOLUME 9.7 fL (7.9-10.8); MONOCYTES # (AUTO) 0.8 10^3/uL (0.0-1.0); MONOCYTES % (AUTO) 8.3 %; NEUTROPHILS # (AUTO) 7.1 10^3/uL (1.5-6.6); NEUTROPHILS % (AUTO) 71.4 %; PLT - PLATELET COUNT 238 10^3/uL (130-450); RED BLOOD COUNT 3.86 10^6/uL (4.20-5.40); WHITE BLOOD COUNT 9.9 x10^3/uL (4.8-10.8)
[2019-09-21 23:52] LABS: PT - PROTHROMBIN TIME 11.4 secs (9.9-12.6)
[2019-09-21 23:53] LABS: BILIRUBIN,URINE NEGATIVE (NEGATIVE); GLUCOSE, URINE (UA) >=1000 mg/dL (NEGATIVE); KETONES,URINE (UA) NEGATIVE (NEGATIVE); LEUKOCYTE ESTERASE, URINE NEGATIVE (NEGATIVE); NITRITE,URINE NEGATIVE (NEGATIVE); OCCULT BLOOD,URINE NEGATIVE (NEGATIVE); PROTEIN,URINE NEGATIVE (NEGATIVE); UROBILINOGEN,URINE 0.2 (NORMAL) E.U./dL (NORMAL)
[2019-09-21 23:54] LABS: CLARITY,URINE CLEAR (CLEAR)
[2019-09-21 23:59] LABS: PARTIAL THROMBOPLASTIN TIME 26.7 secs (24.9-33.3)
[2019-09-22] LABS: ALBUMIN 2.8 g/dL (3.2-5.5); BILIRUBIN,TOTAL 0.5 mg/dL (0.2-1.0); CALCIUM 8.5 mg/dL (8.5-10.3); CREATININE 0.6 mg/dL (0.4-1.0); TOTAL PROTEIN 5.5 g/dL (6.7-8.2)
[2019-09-22] MEDS: SODIUM CHLORIDE FLUSH 0.9% 10 ML SYRINGE IVP SCH ×3 (00:29→18:28)
[2019-09-22] MEDS ORDERED: IPRATROPIUM/ALBUTEROL 3 ML NEB INH PRN (02:03)
[2019-09-22] MEDS ORDERED: hydrALAZINE INJ 20 MG/ML VIAL IVP PRN (02:10)
[2019-09-22] MEDS: INSULIN GLARGINE 300 UNIT/3 ML PEN SUBQ SCH ×2 (02:38→21:15)
[2019-09-22 05:37] LABS: BASOPHILS # (AUTO) 0.1 10^3/uL (0.0-0.1); BASOPHILS % (AUTO) 0.8 %; EOSINOPHILS # (AUTO) 0.2 10^3/uL (0.0-0.7); EOSINOPHILS % (AUTO) 1.5 %; HGB - HEMOGLOBIN 11.4 g/dL (12.0-16.0); LYMPHOCYTES # (AUTO) 1.9 10^3/uL (1.5-3.5); MEAN CORPUSCULAR HEMOGLOBIN 31.5 pg (27.0-31.0); MEAN CORPUSCULAR HGB CONC 31.8 g/dL (32.0-36.0); MEAN CORPUSCULAR VOLUME 99.2 fL (81.0-99.0); MEAN PLATELET VOLUME 9.9 fL (7.9-10.8); MONOCYTES # (AUTO) 0.7 10^3/uL (0.0-1.0); NEUTROPHILS # (AUTO) 6.8 10^3/uL (1.5-6.6); NEUTROPHILS % (AUTO) 69.8 %; PLT - PLATELET COUNT 225 10^3/uL (130-450); RED BLOOD COUNT 3.62 10^6/uL (4.20-5.40); RED CELL DISTRIBUTION WIDTH 12.9 % (12.0-15.0); WHITE BLOOD COUNT 9.8 x10^3/uL (4.8-10.8)
[2019-09-22 05:45] LABS: CALCIUM 8.1 mg/dL (8.5-10.3); CREATININE 0.5 mg/dL (0.4-1.0)
[2019-09-22] MEDS: INSULIN REGULAR HUMAN 300 UNIT/3 ML VIAL SUBQ SCH ×2 (06:42→11:52)
[2019-09-22] MEDS: PANTOPRAZOLE 40 MG VIAL IVP SCH (06:42)
[2019-09-22] MEDS ORDERED: NS W/20 MEQ KCL 1,000 ML IV SCH (10:00)
--- NOTE | 2019-09-22 10:13 | PHARMACY PROGRESS NOTE ---
- Best Possible Medication History Admit Date and Time: 09/21/19 6962 Processed by: Pharmacy Medication History completed: Yes Patient Interview: Pt unable to participate Secondary Source(s): Pharmacy records, Insurance records, Previous admit records As the person ultimately responsible for medication therapy, providers are able to order a medication from an existing home medication list in [facility] via the "Reconcile Routine" prior to Confirmation of that medication by academic support coordinator. Such practice is discouraged except when the physician, in their clinical judgment, deems that a medical need exists for a medication without regard to previous use.
--- NOTE | 2019-09-22 10:34 | PROVIDER PROGRESS NOTE ---
Subjective - Prog Note Date Prog Note Date: 09/22/19 Prog Note Time: 10:31 - Subjective Pt reports feeling: No change (Had a GLF in therecent past and in ED XR showed a non displaced left IT hip fracture.) Objective - Vital Signs/Intake & Output Vital Signs: Vital Signs x48h Temp Pulse Resp BP BP Pulse Ox 09/22/19 08:09 36.8 C 79 18 152/84 H 96 09/22/19 06:09 36.9 C 75 18 152/65 H 91 L 09/22/19 03:45 79 180/71 H 09/22/19 03:30 74 177/78 H 09/22/19 03:15 74 180/74 H 09/22/19 03:09 180/71 H 09/22/19 03:00 73 171/72 H 09/22/19 02:55 73 174/65 H 09/22/19 02:50 70 170/70 H 09/22/19 02:39 163/71 H - Lab Results Fish Bones: 09/22/19 05:19 09/22/19 05:19 Other Labs: Lab Results x24hrs 09/22/19 09/22/19 09/21/19 Range/Units 05:19 05:19 23:37 WBC 9.8 (4.8-10.8) x10^3/uL RBC 3.62 L (4.20-5.40) 10^6/uL Hgb 11.4 L (12.0-16.0) g/dL Hct 35.9 L (37.0-47.0) % MCV 99.2 H (81.0-99.0) fL MCH 31.5 H (27.0-31.0) pg MCHC 31.8 L (32.0-36.0) g/dL RDW 12.9 (12.0-15.0) % Plt Count 225 (130-450) 10^3/uL MPV 9.9 (7.9-10.8) fL Neut # (Auto) 6.8 H (1.5-6.6) 10^3/uL Lymph # (Auto) 1.9 (1.5-3.5) 10^3/uL [place] # (Auto) 0.7 (0.0-1.0) 10^3/uL Eos # (Auto) 0.2 (0.0-0.7) 10^3/uL Baso # (Auto) 0.1 (0.0-0.1) 10^3/uL Absolute Nucleated RBC 0.00 x10^3/uL Nucleated RBC % 0.0 /100WBC PT 11.4 (9.9-12.6) secs INR 1.0 (0.8-1.2) APTT 26.7 (24.9-33.3) secs Sodium 142 (135-145) mmol/L Potassium 3.2 L (3.5-5.0) mmol/L Chloride 109 (101-111) mmol/L Carbon Dioxide 25 (21-32) mmol/L Anion Gap 8.0 (6-13) BUN 15 (6-20) mg/dL Creatinine 0.5 (0.4-1.0) mg/dL Estimated GFR (MDRD) 122 (>89) Glucose 217 H (70-100) mg/dL Calcium 8.1 L (8.5-10.3) mg/dL Total Bilirubin (0.2-1.0) mg/dL AST (10-42) IU/L ALT (10-60) IU/L Alkaline Phosphatase (42-121) IU/L Total Protein (6.7-8.2) g/dL Albumin (3.2-5.5) g/dL Globulin (2.1-4.2) g/dL Albumin/Globulin Ratio (1.0-2.2) Lipase (22-51) U/L Urine Color Urine Clarity (CLEAR) Urine pH (5.0-7.5) PH Ur Specific [place] (1.002-1.030) Urine Protein (NEGATIVE) mg/dL Urine Glucose (UA) (NEGATIVE) mg/dL Urine Ketones (NEGATIVE) mg/dL Urine Occult Blood (NEGATIVE) Urine Nitrite (NEGATIVE) Urine Bilirubin (NEGATIVE) Urine Urobilinogen (NORMAL) E.U./dL Ur Leukocyte Esterase (NEGATIVE) Ur Microscopic Review Urine Culture Comments 09/21/19 09/21/19 09/21/19 Range/Units 23:37 23:37 23:30 WBC 9.9 (4.8-10.8) x10^3/uL RBC 3.86 L (4.20-5.40) 10^6/uL Hgb 12.2 (12.0-16.0) g/dL Hct 38.5 (37.0-47.0) % MCV 99.7 H (81.0-99.0) fL MCH 31.6 H (27.0-31.0) pg MCHC 31.7 L (32.0-36.0) g/dL RDW 13.0 (12.0-15.0) % Plt Count 238 (130-450) 10^3/uL MPV 9.7 (7.9-10.8) fL Neut # (Auto) 7.1 H (1.5-6.6) 10^3/uL Lymph # (Auto) 1.6 (1.5-3.5) 10^3/uL [place] # (Auto) 0.8 (0.0-1.0) 10^3/uL Eos # (Auto) 0.1 (0.0-0.7) 10^3/uL Baso # (Auto) 0.1 (0.0-0.1) 10^3/uL Absolute Nucleated RBC 0.00 x10^3/uL Nucleated RBC % 0.0 /100WBC PT (9.9-12.6) secs INR (0.8-1.2) APTT (24.9-33.3) secs Sodium 140 (135-145) mmol/L Potassium 4.0 (3.5-5.0) mmol/L Chloride 105 (101-111) mmol/L Carbon Dioxide 28 (21-32) mmol/L Anion Gap 7.0 (6-13) BUN 20 (6-20) mg/dL Creatinine 0.6 (0.4-1.0) mg/dL Estimated GFR (MDRD) 99 (>89) Glucose 374 H (70-100) mg/dL Calcium 8.5 (8.5-10.3) mg/dL Total Bilirubin 0.5 (0.2-1.0) mg/dL AST 15 (10-42) IU/L ALT 27 (10-60) IU/L Alkaline Phosphatase 72 (42-121) IU/L Total Protein 5.5 L (6.7-8.2) g/dL Albumin 2.8 L (3.2-5.5) g/dL Globulin 2.7 (2.1-4.2) g/dL Albumin/Globulin Ratio 1.0 (1.0-2.2) Lipase 35 (22-51) U/L Urine Color YELLOW Urine Clarity CLEAR (CLEAR) Urine pH 6.0 (5.0-7.5) PH Ur Specific [place] 1.010 (1.002-1.030) Urine Protein NEGATIVE (NEGATIVE) mg/dL Urine Glucose (UA) >=1000 H (NEGATIVE) mg/dL Urine Ketones NEGATIVE (NEGATIVE) mg/dL Urine Occult Blood NEGATIVE (NEGATIVE) Urine Nitrite NEGATIVE (NEGATIVE) Urine Bilirubin NEGATIVE (NEGATIVE) Urine Urobilinogen 0.2 (NORMAL) (NORMAL) E.U./dL Ur Leukocyte Esterase NEGATIVE (NEGATIVE) Ur Microscopic Review NOT INDICATED Urine Culture Comments NOT INDICATED - Diagnostic Imaging Diagnostic Imaging Comments: XR and CT scan show non displaced left IT hip fracture - Other Results/Comments Other Results/Comments: EXAM: Left hip - mildly tender laterally. Pain with hip rotation. Sensation intact in leg. Moves toes ok. Good cap filling Assessment/Plan - Problem List (1) Closed left hip fracture Impression: closed PLAN: To OR for short interTan nailing of hip fracture. Discussed pro/con of surgery with patient and POA> They are in agreement that we should proceed. Telephone consent obtained with POA. Leg marked. Qualifiers: Encounter type: initial encounter Qualified Code(s): S72.002A - Fracture of unspecified part of neck of left femur, initial encounter for closed fracture
[2019-09-22] MEDS ORDERED: ceFAZolin 2 GM in SODIUM CHLORIDE 0.9% 100ML 100 ML IV ONE (10:36)
--- NOTE | 2019-09-22 11:07 | ANESTHESIA ---
Pre-Anesthesia VS, & Labs - Diagnosis Left Hip Fracture - Procedure Left Hip Pinning Vital Signs: Temp Pulse Resp BP Pulse Ox 37.4 C 74 18 144/72 H 96 09/22/19 11:01 09/22/19 11:09/22/19 11:01 09/22/19 11:09/22/19 11:01 Height 5 ft 6 in Weight (kg) 43.5 kg Body Mass Index 15.5 - NPO >8 hours - Is Patient ?: No - Lab Results Current Lab Results: Laboratory Tests 09/22/19 05:19: Sodium 142, Potassium 3.2 L, Chloride 109, Carbon Dioxide 25, Anion Gap 8.0, BUN 15, Creatinine 0.5, Estimated GFR (MDRD) 122, Glucose 217 H, Calcium 8.1 L 09/22/19 05:19: WBC 9.8, RBC 3.62 L, Hgb 11.4 L, Hct 35.9 L, MCV 99.2 H, MCH 31.5 H, MCHC 31.8 L, RDW 12.9, Plt Count 225, MPV 9.9, Neut # (Auto) 6.8 H, Lymph # (Auto) 1.9, [place] # (Auto) 0.7, Eos # (Auto) 0.2, Baso # (Auto) 0.1, Absolute Nucleated RBC 0.00, Nucleated RBC % 0.0 09/21/19 23:37: PT 11.4, INR 1.0, APTT 26.7 09/21/19 23:37: Sodium 140, Potassium 4.0, Chloride 105, Carbon Dioxide 28, Anion Gap 7.0, BUN 20, Creatinine 0.6, Estimated GFR (MDRD) 99, Glucose 374 H, Calcium 8.5, Total Bilirubin 0.5, AST 15, ALT 27, Alkaline Phosphatase 72, Total Protein 5.5 L, Albumin 2.8 L, Globulin 2.7, Albumin/Globulin Ratio 1.0, Lipase 35 09/21/19 23:37: WBC 9.9, RBC 3.86 L, Hgb 12.2, Hct 38.5, MCV 99.7 H, MCH 31.6 H, MCHC 31.7 L, RDW 13.0, Plt Count 238, MPV 9.7, Neut # (Auto) 7.1 H, Lymph # (Auto) 1.6, [place] # (Auto) 0.8, Eos # (Auto) 0.1, Baso # (Auto) 0.1, Absolute Nucleated RBC 0.00, Nucleated RBC % 0.0 Fish Bones: 09/22/19 05:19 09/22/19 05:19 Home Medications and Allergies Home Medications: Ambulatory Orders Ipratropium/Albuterol [Combivent Respimat] 1 puffs INH Q6H PRN 09/22/19 Active Medications Acetaminophen (Tylenol) 650 mg PO Q4HR PRN PRN Reason: Pain 1 to 4 Albuterol/Ipratropium (Duoneb) 3 ml INH Q4HR PRN PRN Reason: Wheezing Hydralazine HCl (Apresoline Inj) 10 mg IVP Q6H PRN PRN Reason: PER PHYSICIAN ORDER Last Admin: 09/22/19 02:39 Dose: 10 mg Potassium Chloride/Sodium Chloride (Normal Saline 0.9% W/20 Meq Kcl) 1,000 mls @ 125 mls/hr IV .Q8H [facility] Last Admin: 09/22/19 10:08 Dose: 125 mls/hr Insulin Glargine (Lantus Solostar) 15 unit SUBQ QPM [facility] Last Admin: 09/22/19 02:38 Dose: 15 unit Insulin Human Regular (Humulin R) 1 - 5 unit SUBQ Q6HR [facility]; Protocol Last Admin: 09/22/19 06:42 Dose: 1 unit Oxycodone HCl (Roxicodone) 5 mg PO Q4HR PRN PRN Reason: Pain 5 to 7 Pantoprazole Sodium (Protonix) 40 mg IVP QDAC [facility] Last Admin: 09/22/19 06:42 Dose: 40 mg Sodium Chloride (Normal Saline Flush 0.9%) 10 ml IVP PRN PRN PRN Reason: NEEDED PER PROVIDER ORDERS Sodium Chloride (Normal Saline Flush 0.9%) 10 ml IVP 0100,0900,1700 [facility] Last Admin: 09/22/19 00:29 Dose: 10 ml Hydrocortisone 1% Oint [Hydrocortisone] 1 applic TOP PRN PRN 09/11/19 Insulin Glargine,Hum.rec.anlog [Basaglar Kwikpen U-100] 15 units SUBQ DAILY 09/11/19 Loperamide [Imodium] 2 mg PO TID PRN 09/16/19 Ipratropium/Albuterol [Combivent Respimat] 1 puffs INH Q6H PRN 09/22/19 Allergies/Adverse Reactions: Allergies Allergy/AdvReac Type Severity Reaction Status Date / Time No Known Drug Allergies Allergy Verified 09/10/19 18:37 Anes History & Medical History - Anesthetic History Family history of Anesthesia Complications: Denies Family history of Malignant Hyperthermia: Denies - Medical History Cardiovascular: reports: Hypertension Pulmonary: reports: COPD (On 2L O2 via NC) Gastrointestinal: reports: None Urinary: reports: Incontinence Neuro: reports: Dementia (mild) Musculoskeletal: reports: Other Endocrine/Autoimmune: reports: Type 1 diabetes Blood Disorders: reports: None Skin: reports: None Smoking Status: Current every day smoker Psychosocial: reports: Depression, Anxiety - Surgical History Other Past Surgical History: Denies any previous surgeries or anesthetics. Results - EKG Results EKG Comparison: Reviewed EKG Exam General: Alert, Oriented x3, Cooperative Dental: Poor dentition Mouth Openin Fingerbreadth Neck Mobility: Normal Mallampati classification: III Thyromental Distance: greater than 6 cm Respiratory: Lungs clear, Normal breath sounds, No respiratory distress, No accessory muscle use Cardiovascular: Regular rate, Normal S1, Normal S2, No murmurs Mental/Cognitive Status: Alert/Oriented X3, Normal for patient Cognitive Status: Dementia (mild) Plan Anesthesia Type: General, Fascia Iliaca Block (left) Consent for Procedure(s) Verified and Reviewed: Yes Code Status: Attempt Resuscitation ASA classification: 3-Severe systemic disease Is this case an emergency?: No
--- NOTE | 2019-09-22 11:10 | CONSULTATION NOTE ---
DATE OF SERVICE: 09/22/2019 Physician: Moe Meza MD REFERRING PHYSICIAN: Dr. Magdaleno Avery of the Emergency Department. CHIEF COMPLAINT: "My left hip hurts." HISTORY OF PRESENT ILLNESS: Harrison Tyson is a 69-year-old female resident at a local [facility] living facility, who was noted to have had several falls in the last couple of days. She was still somewhat ambulatory, but because of her persistent pain, she was brought to the emergency room yesterday evening for an evaluation. Plain x-rays of her left hip were unremarkable, although her cl inical exam was consistent with clinical fracture. Followup CT scan of her left hip confirmed a nond isplaced intertrochanteric hip fracture. Of note, the patient was recently admitted to the hospital for a variety of medical issues. During that hospitalization, she was put on palliative care, comfor t measures only status. Unclear whether this is going to be her status on this admission as well. N o other known injuries were discovered on investigation in the emergency room department. PHYSICAL EXAMINATION: Left hip was somewhat tender on palpation over the lateral aspect. Had some p ain with hip rotation as well on the left side. Moves her toes on command well. Sensation intact thr oughout. Good capillary filling noted. IMAGING: Review of x-rays and CT scan of the left hip shows essentially a nondisplaced left intertro chanteric hip fracture. ASSESSMENT: 1. Closed nondisplaced left intertrochanteric hip fracture. 2. Mild dementia. 3. Diabetes mellitus. 4. Chronic obstructive pulmonary disease. PLAN: I discussed with the patient and her power of local announcer our treatment options. After discussin g the patient's current mental status, as well as the anticipated functionality of doing surgery, the y wished to proceed with surgery today. Risks and benefits of the surgery were explained to both of them. They realize that the patient is at high risk. Plan then is to proceed with a short Intertan nailing of her left hip fracture later today. Consent was signed. The leg has been marked. TD: 09/22/2019 10:52
[2019-09-22] MEDS ORDERED: ALBUTEROL NEB 2.5 MG/3 ML INH PRN (11:39)
--- NOTE | 2019-09-22 11:48 | PROVIDER PROGRESS NOTE ---
Subjective - Prog Note Date Prog Note Date: 09/22/19 Prog Note Time: 09:00 - Subjective Pt reports feeling: No change Subjective: Harrison admits to feeling nervous, but wishes to walk again someday. She has an activated POA who will assist in the decision in undergoing a left hip repair with Dr. Meza. Patient states she does not want any medication for her anxiety. Current Medications - Current Medications Current Medications: Active Medications Acetaminophen (Tylenol) 650 mg PO Q4HR PRN PRN Reason: Pain 1 to 4 Albuterol () 2.5 mg INH RTQ4H PRN PRN Reason: Wheezing Albuterol/Ipratropium (Duoneb) 3 ml INH Q4HR PRN PRN Reason: Wheezing Hydralazine HCl (Apresoline Inj) 10 mg IVP Q6H PRN PRN Reason: PER PHYSICIAN ORDER Last Admin: 09/22/19 02:39 Dose: 10 mg Potassium Chloride/Sodium Chloride (Normal Saline 0.9% W/20 Meq Kcl) 1,000 mls @ 125 mls/hr IV .Q8H [facility] Last Admin: 09/22/19 10:08 Dose: 125 mls/hr Insulin Glargine (Lantus Solostar) 15 unit SUBQ QPM [facility] Last Admin: 09/22/19 02:38 Dose: 15 unit Insulin Human Regular (Humulin R) 1 - 5 unit SUBQ Q6HR [facility]; Protocol Last Admin: 09/22/19 06:42 Dose: 1 unit Oxycodone HCl (Roxicodone) 5 mg PO Q4HR PRN PRN Reason: Pain 5 to 7 Pantoprazole Sodium (Protonix) 40 mg IVP QDAC [facility] Last Admin: 09/22/19 06:42 Dose: 40 mg Sodium Chloride (Normal Saline Flush 0.9%) 10 ml IVP PRN PRN PRN Reason: NEEDED PER PROVIDER ORDERS Sodium Chloride (Normal Saline Flush 0.9%) 10 ml IVP 0100,0900,1700 [facility] Last Admin: 09/22/19 00:29 Dose: 10 ml Hydrocortisone 1% Oint [Hydrocortisone] 1 applic TOP PRN PRN 09/11/19 Insulin Glargine,Hum.rec.anlog [Basaglar Kwikpen U-100] 15 units SUBQ DAILY 09/11/19 Loperamide [Imodium] 2 mg PO TID PRN 09/16/19 Ipratropium/Albuterol [Combivent Respimat] 1 puffs INH Q6H PRN 09/22/19 Objective - Vital Signs/Intake & Output Reviewed Vital Signs: Yes Vital Signs: Vital Signs x48h Temp Pulse Pulse Resp BP Pulse Ox 09/22/19 11:31 37.4 C 74 20 95 09/22/19 11:01 37.4 C 74 18 144/72 H 96 09/22/19 08:09 36.8 C 79 18 152/84 H 96 09/22/19 06:09 36.9 C 75 18 152/65 H 91 L Intake & Output: Intake & Output 09/19/19 09/20/19 09/21/19 09/22/19 23:59 23:59 23:59 23:59 Intake Total 1000 Balance 1000 - Objective General Appearance: positive: Alert, Mild distress, Anxious Eyes Bilateral: positive: No lid inflammation Eyes: OU Conjunctivae pale ENT: positive: Pharyngeal erythema, Dry mucous membranes Neck: positive: No JVD, Stiff neck Respiratory: positive: Chest non-tender, No respiratory distress, Other (dimini shed throughout) Cardiovascular: positive: Regular rate & rhythm, No gallop, Systolic murmur, Decreased pulse(s) Peripheral Pulses: 1+ Radial (R), 1+ Radial (L), 2+ Femoral (R), 2+ Femoral (L) Abdomen: positive: Non-tender, Nml bowel sounds Back: positive: Nml inspection Skin: positive: No rash, Warm, Dry, Pallor Extremities: positive: No pedal edema, Joint swelling (left hip swelling) Neurologic/Psychiatric: positive: Disoriented to person, Disoriented to place, Disoriented to time, Weakness, Sensory loss, Depressed mood/affect, Other (baseline advanced dementia) Reflexes: Bicep (R): 3+, Bicep (L): 3+ - Lab Results Fish Bones: 09/22/19 05:19 09/22/19 05:19 Other Labs: Lab Results x24hrs 09/22/19 09/22/19 09/21/19 Range/Units 05:19 05:19 23:37 WBC 9.8 (4.8-10.8) x10^3/uL RBC 3.62 L (4.20-5.40) 10^6/uL Hgb 11.4 L (12.0-16.0) g/dL Hct 35.9 L (37.0-47.0) % MCV 99.2 H (81.0-99.0) fL MCH 31.5 H (27.0-31.0) pg MCHC 31.8 L (32.0-36.0) g/dL RDW 12.9 (12.0-15.0) % Plt Count 225 (130-450) 10^3/uL MPV 9.9 (7.9-10.8) fL Neut # (Auto) 6.8 H (1.5-6.6) 10^3/uL Lymph # (Auto) 1.9 (1.5-3.5) 10^3/uL [place] # (Auto) 0.7 (0.0-1.0) 10^3/uL Eos # (Auto) 0.2 (0.0-0.7) 10^3/uL Baso # (Auto) 0.1 (0.0-0.1) 10^3/uL Absolute Nucleated RBC 0.00 x10^3/uL Nucleated RBC % 0.0 /100WBC PT 11.4 (9.9-12.6) secs INR 1.0 (0.8-1.2) APTT 26.7 (24.9-33.3) secs Sodium 142 (135-145) mmol/L Potassium 3.2 L (3.5-5.0) mmol/L Chloride 109 (101-111) mmol/L Carbon Dioxide 25 (21-32) mmol/L Anion Gap 8.0 (6-13) BUN 15 (6-20) mg/dL Creatinine 0.5 (0.4-1.0) mg/dL Estimated GFR (MDRD) 122 (>89) Glucose 217 H (70-100) mg/dL Calcium 8.1 L (8.5-10.3) mg/dL Total Bilirubin (0.2-1.0) mg/dL AST (10-42) IU/L ALT (10-60) IU/L Alkaline Phosphatase (42-121) IU/L Total Protein (6.7-8.2) g/dL Albumin (3.2-5.5) g/dL Globulin (2.1-4.2) g/dL Albumin/Globulin Ratio (1.0-2.2) Lipase (22-51) U/L Urine Color Urine Clarity (CLEAR) Urine pH (5.0-7.5) PH Ur Specific [place] (1.002-1.030) Urine Protein (NEGATIVE) mg/dL Urine Glucose (UA) (NEGATIVE) mg/dL Urine Ketones (NEGATIVE) mg/dL Urine Occult Blood (NEGATIVE) Urine Nitrite (NEGATIVE) Urine Bilirubin (NEGATIVE) Urine Urobilinogen (NORMAL) E.U./dL Ur Leukocyte Esterase (NEGATIVE) Ur Microscopic Review Urine Culture Comments 09/21/19 09/21/19 09/21/19 Range/Units 23:37 23:37 23:30 WBC 9.9 (4.8-10.8) x10^3/uL RBC 3.86 L (4.20-5.40) 10^6/uL Hgb 12.2 (12.0-16.0) g/dL Hct 38.5 (37.0-47.0) % MCV 99.7 H (81.0-99.0) fL MCH 31.6 H (27.0-31.0) pg MCHC 31.7 L (32.0-36.0) g/dL RDW 13.0 (12.0-15.0) % Plt Count 238 (130-450) 10^3/uL MPV 9.7 (7.9-10.8) fL Neut # (Auto) 7.1 H (1.5-6.6) 10^3/uL Lymph # (Auto) 1.6 (1.5-3.5) 10^3/uL [place] # (Auto) 0.8 (0.0-1.0) 10^3/uL Eos # (Auto) 0.1 (0.0-0.7) 10^3/uL Baso # (Auto) 0.1 (0.0-0.1) 10^3/uL Absolute Nucleated RBC 0.00 x10^3/uL Nucleated RBC % 0.0 /100WBC PT (9.9-12.6) secs INR (0.8-1.2) APTT (24.9-33.3) secs Sodium 140 (135-145) mmol/L Potassium 4.0 (3.5-5.0) mmol/L Chloride 105 (101-111) mmol/L Carbon Dioxide 28 (21-32) mmol/L Anion Gap 7.0 (6-13) BUN 20 (6-20) mg/dL Creatinine 0.6 (0.4-1.0) mg/dL Estimated GFR (MDRD) 99 (>89) Glucose 374 H (70-100) mg/dL Calcium 8.5 (8.5-10.3) mg/dL Total Bilirubin 0.5 (0.2-1.0) mg/dL AST 15 (10-42) IU/L ALT 27 (10-60) IU/L Alkaline Phosphatase 72 (42-121) IU/L Total Protein 5.5 L (6.7-8.2) g/dL Albumin 2.8 L (3.2-5.5) g/dL Globulin 2.7 (2.1-4.2) g/dL Albumin/Globulin Ratio 1.0 (1.0-2.2) Lipase 35 (22-51) U/L Urine Color YELLOW Urine Clarity CLEAR (CLEAR) Urine pH 6.0 (5.0-7.5) PH Ur Specific [place] 1.010 (1.002-1.030) Urine Protein NEGATIVE (NEGATIVE) mg/dL Urine Glucose (UA) >=1000 H (NEGATIVE) mg/dL Urine Ketones NEGATIVE (NEGATIVE) mg/dL Urine Occult Blood NEGATIVE (NEGATIVE) Urine Nitrite NEGATIVE (NEGATIVE) Urine Bilirubin NEGATIVE (NEGATIVE) Urine Urobilinogen 0.2 (NORMAL) (NORMAL) E.U./dL Ur Leukocyte Esterase NEGATIVE (NEGATIVE) Ur Microscopic Review NOT INDICATED Urine Culture Comments NOT INDICATED - Diagnostic Imaging Diagnostic Imaging Results: positive: Final report reviewed Diagnostic Imaging Comments: EXAM: LEFT HIP RADIOGRAPHY EXAM DATE: 09/21/2019 09:01 PM. IMPRESSION: 1. Osteopenia limits evaluation for nondisplaced fractures. 2. No definite displaced fractures identified on this exam. If there is clinical suspicion for a nondisplaced fracture, CT scan would be recommended. EXAM: CT HEAD EXAM DATE: 09/21/2019 08:54 PM. IMPRESSION: 1. No acute intracranial findings. 2. Moderate diffuse parenchymal volume loss.3. Chronic microangiopathic white matter changes. 4. Bilateral maxillary and sphenoid sinus disease. EXAM: LEFT HIP CT WITHOUT CONTRAST EXAM DATE: 09/21/2019 10:50 PM. IMPRESSION: Minimally impacted, incomplete intertrochanteric fracture of the left hip. ABX Reporting Has patient been on IV antibiotics over the past 48 hours?: Yes Assessment/Plan - Problem List (1) Closed left hip fracture Impression: -POA says that she was told patient fell yesterday, hit her head and left hip. Then fell again today at 5 PM out of bed, worsening the left hip pain -Lives at [facility] -Minimally impacted, incomplete intertrochanteric fracture of the left hip was seen on follow up lower extremity CT completed upon admission -Plans to undergo repair of the left hip with Dr. Meza after speaking to her POA -Continue to monitor, PT/OT post op Fall -Subsequent encounters with having risk factors that include; lower-extremity weakness, age, female gender, cognitive impairment, arthritis, and anemia -No reports of loss of consciousness during her falls -Orthostatic vital signs post op to rule out syncope as the cause, echocardiogram if appropriate -No mention of cardiac history besides HTN -Telemetry to watch for pauses or ectopy -Fall precautions, PT to evaluate for possible SNF rehab Acute metabolic encephalopathy -Confusion is noted to be worse than the patients baseline -Electrolyte abnormalities on labs; potassium 3.2, glucose 217 -Now with new fracture and change in environment -Hearing impairment also exacerbates this problem -Continue to treat low potassium using IV fluids with 20 Meq continuous Macrocytic anemia -H/H is low at 11.4/35.9, elevated MCV at 99.2 -Suspect poor nutrition, dementia are contributing factors -Checking TSH, B12, folate labs in the AM -Routine labs Hypokalemia -Most likely from poor PO intake, baseline diarrhea -Known history of chronic diarrhea -Prescribed Imodium outpatient -Replace as needed, routine labs COPD -Current tobacco use -Takes Combivent, Proair at home -Continues on duo-neb as needed while in the hospital Dementia -Imaging showed moderate diffuse parenchymal volume loss, chronic microangiopathic white matter changes -DNR/DNI with limited interventions, no POLST on file -Fall precautions Urinary incontinence -Recurrent infections, progression of dementia -UA normal on this admit -Indwelling womack post-op, D/C in the AM Chronic diarrhea -Prescribed Imodium at home Insulin dependent DM type 2 -Hemoglobin A1C on 09/11/2019 was 15.8% -Takes Kwikpen 15 units daily at home -Now on Lantus 15 units at , [facility] and carb diet Protein calorie malnutrition Cachexia -Chronically ill appearance on exam -Dementia, anemia, contribute -Nutritional consult -PT/OT evaluations Qualifiers:
[2019-09-22] MEDS ORDERED: BUPIVACAINE 0.25% PF 30 ML VIAL ONE (11:50)
[2019-09-22] MEDS ORDERED: LACTATED RINGERS 1,000 ML IV ONE (12:06)
[2019-09-22] MEDS ORDERED: ONDANSETRON 4 MG/2 ML VIAL IVP ONE (12:06)
[2019-09-22] MEDS ORDERED: PROPOFOL 200 MG/20 ML VIAL IVP ONE (12:06)
[2019-09-22] MEDS ORDERED: fentaNYL 250 MCG/5 ML VIAL IVP ONE (12:06)
[2019-09-22] MEDS ORDERED: PROCHLORPERAZINE 10 MG/2 ML VIAL IVP PRN (13:46)
[2019-09-22] MEDS ORDERED: SODIUM CHLORIDE FLUSH 0.9% 10 ML SYRINGE IVP PRN (13:46)
[2019-09-22] MEDS ORDERED: SENNA 8.6 MG TABLET PO PRN (13:46)
[2019-09-22] MEDS ORDERED: DOCUSATE SODIUM 100 MG CAPSULE PO PRN (13:46)
[2019-09-22] MEDS ORDERED: ONDANSETRON 4 MG/2 ML VIAL IVP PRN (13:46)
[2019-09-22] MEDS ORDERED: ACETAMINOPHEN 325 MG TABLET PO PRN (13:46)
--- NOTE | 2019-09-22 13:52 | OPERATIVE REPORT ---
Operative Report - General Admit Date: 09/21/19 Procedure Date: 09/22/19 Planned Procedure: Short interTan nailing of left hip fracture Pre-Op Diagnosis: Closed, non displaced left intertrochanteric hip fracture Procedure Performed: Short interTan nailing of left hip fracture Post Op Diagnosis: Same - Procedure Note Primary Surgeon: Aravind Meza MD Anesthesia Provider: Alexandra Villa CRNA Anesthesia Technique: General ET tube IV Fluids (mL): 800 Estimated Blood Loss (mL): 50 Complications: None
[2019-09-22] MEDS ORDERED: SODIUM CHLORIDE 0.9% 1,000 ML IV SCH (14:00)
--- NOTE | 2019-09-22 15:10 | ANESTHESIA PROCEDURE NOTE ---
Diagnosis: Left hip pinning s/p hip fracture Procedure: Left fascia iliaca block Consent for Procedure(s) Verified and Reviewed: Yes Height and Weight: Height 5 ft 6 in Weight (kg) 43.5 kg Body Mass Index 15.5 Vital Signs: Temp Pulse Resp BP Pulse Ox 36.4 C L 66 20 146/59 H 96 09/22/19 15:00 09/22/19 15:00 09/22/19 15:00 09/22/19 15:00 09/22/19 15:00 Allergies No Known Drug Allergies Allergy (Verified 09/10/19 18:37) Requesting Provider: Susana Location: Left Hip ASA classification: 3-Severe systemic disease Anes. Monitoring and Equipment: Non-invasive BP, Pulse oximetery Procedure Notes: After the surgery was completed, the patient's left groin area was prepped with chlorohexadine. Ultrasound was utilized to identify the fascia iliaca. A 22G blunted stimiplex needle was advanced just under the fascia and a total of 40ml of 0.16% ropiviaine with 4mg of decadron was injected with adequate hydro- dissection noted. There was negative aspiration of heme and patient tolerated the procedure well. She was taken to the recovery room in good condition. Full evaluation was pending.
--- NOTE | 2019-09-22 15:55 | XRAY Report ---
Reason: FRACTURE LEFT HIP Procedure Date: 09/22/2019 Accession Number: [id number] / [id number] Procedure: FL - OR C-Arm Procedure CPT Code: Final Report FULL RESULT: EXAM: FLUOROSCOPIC GUIDANCE EXAM DATE: 09/22/2019 12:26 PM. CLINICAL HISTORY: FRACTURE LEFT HIP. COMPARISON: HIP W/PELVIS 2-3V LT 09/21/2019 8:36 PM. FINDINGS: Left femoral and medullary tanner placement with femoral neck screw. IMPRESSION: Fluoroscopic guidance provided for left femur ORIF. Total fluoroscopy time: 27 seconds. Number of images: 5. RADIA
[2019-09-22] MEDS ORDERED: SODIUM CHLORIDE FLUSH 0.9% 10 ML SYRINGE IVP SCH (17:00)
[2019-09-22] MEDS: INSULIN ASPART 300 UNIT/3 ML PEN SUBQ SCH ×2 (18:28→21:15)
[2019-09-22] MEDS: ACETAMINOPHEN 1,000 MG/100 ML 100 ML IV PRN (18:48)
[2019-09-22] MEDS: ceFAZolin 2 GM in SODIUM CHLORIDE 0.9% 100ML 100 ML IV SCH (20:19)
[2019-09-22] MEDS ORDERED: INSULIN GLARGINE 300 UNIT/3 ML PEN SUBQ SCH (21:00)
[2019-09-22] MEDS: NS W/20 MEQ KCL 1,000 ML IV SCH (21:15)
[2019-09-23] MEDS: ACETAMINOPHEN 1,000 MG/100 ML 100 ML IV PRN (00:42)
--- NOTE | 2019-09-23 00:53 | OPERATIVE REPORT ---
DATE OF SERVICE: 09/22/2019 Physician: Moe Meza MD PREOPERATIVE DIAGNOSIS: Closed nondisplaced left intertrochanteric hip fracture. POSTOPERATIVE DIAGNOSIS: Closed nondisplaced left intertrochanteric hip fracture. PROCEDURE PERFORMED: Short InterTan nailing of left hip fracture. SURGEON: Moe Meza MD CREDIT COUNSELOR: ANESTHESIA TYPE/PROVIDER: General. DESCRIPTION OF PROCEDURE: The patient was taken to the operating room on the late morning of 020 where she was placed under general anesthetic without any complications. She was then positioned supine on the fracture table. The right unfractured extremity hip was then flexed and widely abduct ed and held in a well leg alvares. The fractured left extremity was then placed in axial traction wit h the leg internally rotated about 30 degrees. Fluoroscopic views of the hip fracture on the left si de showed the fracture still to be nondisplaced in both AP and lateral projection. We then prepped and draped the lateral aspect of the left hip in the usual fashion for our procedure. Making a small oblique incision just proximal tip of the greater trochanter, we dissected down to t he greater trochanter. This is where we placed the threaded-tip guidewire. Its position was confirm ed with fluoroscopic view. We then drilled the threaded guide pin through the greater trochanter int o the proximal femur down to the level of the lesser trochanter. Fluoroscopic view showed satisfacto ry position of our guide pin in both AP and lateral projection. We then used the 16 mm cannulated ch raquel reamer under power and prepared the proximal femur using our guide pin to generate the path for this reamer. The guide pin and the reamer were then removed. We next inserted our short InterTan n ail through the prepared reamed opening in the proximal femur. The nail was a 10 mm x 18 cm x 125 de gree angle short InterTan nail. Fluoroscopic views showed that with minimal manipulation, we had the nail down the intramedullary canal of the proximal femoral shaft down to where the oblique proximal hole of the nail was in alignment with the femoral neck. We then proceeded to make a small skin inci meena allowed the oval drill sleeve up against the lateral femoral cortex. We then inserted the pin g uide into this oval sleeve and proceeded to drill under power the threaded-tip guidewire up through t he proximal femur, femoral neck and femoral head. Fluoroscopic view confirmed the near central locat ion of our guide pin in AP and lateral projections with the proper depth to within a few millimeters of the subchondral bone of the femoral head. Satisfied with the positioning of the pin, the direct m easuring guide was then used and we determined the 95 mm x 11 mm subtrochanteric hip lag screw be uti lized. We removed the pin guide from the oval sleeve and then reamed the proximal femur with the can nulated reamer up to within a few millimeters of the tip of our guide pin. Reamer was removed and we then followed with the selected subtrochanteric hip lag screw up over our guide pin. This was advan eugenia until we were within a few millimeters of the subchondral bone in AP and lateral projection. Sat isfied with this position, we then removed the insertion apparatus and guide pin. We then locked the proximal screw in our nail using the hinged screwdriver, tightening the set screw snugly and then ba cking off 90 degrees. We then proceeded to insert a distal locking screw. Through a small skin incision, the concentric si lver and gold sleeves were then inserted through the incision down to the mid femoral shaft laterally . We then drilled with our calibrated drill through our sleeves penetrating the lateral and femoral cortex. Fluoroscopic view demonstrated the drill was just past the medial femoral cortex. Calibrati ons on the drill indicated a 32.5 mm length x 5 mm diameter distal locking screw be utilized. We rem venu the drill and the central silver sleeve out. This was then followed by the selected distal lock ing screw, which was inserted manually. We got good bicortical contact with the screw. Fluoroscopic views in AP and lateral projection showed the screw to be within the distal end of our inserted nail . Final x-rays were then obtained of the nail and the fracture in AP and lateral projections showing both the proximal and distal end of our nail. Satisfied with this, we then removed the outrigger fr om the nail and irrigated the wounds out thoroughly with saline. We then closed the wound in layers. The proximal incision had some 0 Vicryl to close the fascia jenaro incision. The proximal 2 incision s subcutaneous tissue closed with simple interrupted stitches of 3-0 Vicryl sutures. Finally, skin s taples used to approximate the skin edges. We dressed the wounds. The patient then transferred off the table and taken to the recovery room in satisfactory condition. ESTIMATED BLOOD LOSS: 50 mL. REPLACEMENT: 800 mL of crystalloid. INTRAOPERATIVE COMPLICATIONS: None. PLAN: The patient will be up, ambulatory, weightbearing as tolerated on his extremity by postop day 1 or 2. TD: 09/22/2019 14:06
[2019-09-23] MEDS: SODIUM CHLORIDE FLUSH 0.9% 10 ML SYRINGE IVP SCH ×4 (02:37→23:40)
[2019-09-23] MEDS: ceFAZolin 2 GM in SODIUM CHLORIDE 0.9% 100ML 100 ML IV SCH (03:40)
[2019-09-23 05:42] LABS: BASOPHILS # (AUTO) 0.1 10^3/uL (0.0-0.1); BASOPHILS % (AUTO) 0.7 %; EOSINOPHILS % (AUTO) 0.1 %; HGB - HEMOGLOBIN 11.2 g/dL (12.0-16.0); LYMPHOCYTES # (AUTO) 1.1 10^3/uL (1.5-3.5); LYMPHOCYTES % (AUTO) 8.2 %; MEAN CORPUSCULAR HEMOGLOBIN 31.4 pg (27.0-31.0); MEAN CORPUSCULAR VOLUME 101.1 fL (81.0-99.0); MEAN PLATELET VOLUME 10.2 fL (7.9-10.8); MONOCYTES # (AUTO) 0.8 10^3/uL (0.0-1.0); MONOCYTES % (AUTO) 5.8 %; NEUTROPHILS # (AUTO) 11.1 10^3/uL (1.5-6.6); NEUTROPHILS % (AUTO) 84.1 %; PLT - PLATELET COUNT 229 10^3/uL (130-450); RED BLOOD COUNT 3.57 10^6/uL (4.20-5.40); RED CELL DISTRIBUTION WIDTH 12.9 % (12.0-15.0); WHITE BLOOD COUNT 13.2 x10^3/uL (4.8-10.8)
[2019-09-23 05:50] LABS: CREATININE 0.5 mg/dL (0.4-1.0)
[2019-09-23] MEDS: NS W/20 MEQ KCL 1,000 ML IV SCH (06:11)
[2019-09-23] MEDS: SODIUM CHLORIDE FLUSH 0.9% 10 ML SYRINGE IVP PRN (06:12)
[2019-09-23] MEDS: PANTOPRAZOLE 40 MG VIAL IVP SCH (06:12)
--- NOTE | 2019-09-23 07:32 | PROVIDER PROGRESS NOTE ---
Subjective - Prog Note Date Prog Note Date: 09/23/19 Prog Note Time: 07:30 - Subjective Pt reports feeling: Improved Subjective: Harrison states she "just wants to go home", and has pain with movement. She notes that she has not been sleeping well, as everyone keeps coming in her room. She has no apparent bleeding from her left hip site and was reported as being agreeable to therapies. Current Medications - Current Medications Current Medications: Active Medications Acetaminophen (Tylenol) 650 mg PO Q4HR PRN PRN Reason: Pain 1 to 4 Acetaminophen (Tylenol) 650 - 975 mg PO Q4HR PRN PRN Reason: PAIN Albuterol () 2.5 mg INH RTQ4H PRN PRN Reason: Wheezing Albuterol/Ipratropium (Duoneb) 3 ml INH Q4HR PRN PRN Reason: Wheezing Docusate Sodium (Colace 100mg Capsule) 100 mg PO BID PRN PRN Reason: Constipation Enoxaparin Sodium (Lovenox) 30 mg SUBQ DAILY [facility] Hydralazine HCl (Apresoline Inj) 10 mg IVP Q6H PRN PRN Reason: PER PHYSICIAN ORDER Last Admin: 09/22/19 02:39 Dose: 10 mg Acetaminophen (Ofirmev) 100 mls @ 400 mls/hr IV Q6HR PRN PRN Reason: PAIN Last Infusion: 09/23/19 00:57 Dose: Infused Insulin Aspart (Novolog) 1 - 5 unit SUBQ 0800,1200,1700,2100 [facility]; Protocol Last Admin: 09/22/19 21:15 Dose: 5 unit Insulin Glargine (Lantus Solostar) 18 unit SUBQ QPM [facility] Ondansetron HCl (Zofran Inj) 4 mg IVP Q6HR PRN PRN Reason: Nausea / Vomiting Oxycodone HCl (Roxicodone) 5 mg PO Q4HR PRN PRN Reason: Pain 5 to 7 Pantoprazole Sodium (Protonix) 40 mg IVP QDAC [facility] Last Admin: 09/23/19 06:12 Dose: 40 mg Prochlorperazine Edisylate (Compazine Inj) 10 mg IVP Q6HR PRN PRN Reason: Nausea / Vomiting Senna (Senokot) 17.2 mg PO Q12H PRN PRN Reason: Constipation Sodium Chloride (Normal Saline Flush 0.9%) 10 ml IVP PRN PRN PRN Reason: NEEDED PER PROVIDER ORDERS Last Admin: 09/23/19 06:12 Dose: 10 ml Sodium Chloride (Normal Saline Flush 0.9%) 10 ml IVP 0100,0900,1700 [facility] Last Admin: 09/23/19 02:37 Dose: Not Given Hydrocortisone 1% Oint [Hydrocortisone] 1 applic TOP PRN PRN 09/11/19 Insulin Glargine,Hum.rec.anlog [Basaglar Kwikpen U-100] 15 units SUBQ DAILY 09/11/19 Loperamide [Imodium] 2 mg PO TID PRN 09/16/19 Ipratropium/Albuterol [Combivent Respimat] 1 puffs INH Q6H PRN 09/22/19 Objective - Vital Signs/Intake & Output Reviewed Vital Signs: Yes Vital Signs: Vital Signs x48h Temp Pulse Resp BP Pulse Ox 09/23/19 03:42 36.3 C L 77 18 152/76 H 97 09/23/19 00:56 71 18 153/64 H 94 09/23/19 00:00 36.5 C 73 20 167/69 H 95 Intake & Output: Intake & Output 09/20/19 09/21/19 09/22/19 09/23/19 23:59 23:59 23:59 23:59 Intake Total 2200 1200.000 Output Total 500 250 Balance 1700 950.000 - Objective General Appearance: positive: Alert, Moderate distress, Anxious Eyes Bilateral: positive: No lid inflammation Eyes: OU Conjunctivae pale ENT: positive: Pharyngeal erythema, Dry mucous membranes Neck: positive: Trachea midline, Stiff neck Respiratory: positive: Chest non-tender, No respiratory distress, Other (diminished, bilaterally) Cardiovascular: positive: Regular rate & rhythm, No gallop, Systolic murmur, Decreased pulse(s) Peripheral Pulses: 1+ Radial (R), 1+ Radial (L) Abdomen: positive: Non-tender, Nml bowel sounds, Other (rounded, soft) Back: positive: Nml inspection Skin: positive: No rash, Warm, Dry, Pallor Extremities: positive: Non-tender, Full ROM, No pedal edema, Joint swelling (left hip) Neurologic/Psychiatric: positive: Disoriented to place, Disoriented to time, Weakness, Sensory loss, Slurred/abnml speech (sluggish speech), Depressed mood/affect Reflexes: Bicep (R): 3+, Bicep (L): 3+ - Lab Results Fish Bones: 09/23/19 10:00 09/23/19 05:00 Other Labs: Lab Results x24hrs 09/23/19 09/23/19 09/23/19 Range/Units 05:00 05:00 05:00 WBC 13.2 H (4.8-10.8) x10^3/uL RBC 3.57 L (4.20-5.40) 10^6/uL Hgb 11.2 L (12.0-16.0) g/dL Hct 36.1 L (37.0-47.0) % MCV 101.1 H (81.0-99.0) fL MCH 31.4 H (27.0-31.0) pg MCHC 31.0 L (32.0-36.0) g/dL RDW 12.9 (12.0-15.0) % Plt Count 229 (130-450) 10^3/uL MPV 10.2 (7.9-10.8) fL Neut # (Auto) 11.1 H (1.5-6.6) 10^3/uL Lymph # (Auto) 1.1 L (1.5-3.5) 10^3/uL [place] # (Auto) 0.8 (0.0-1.0) 10^3/uL Eos # (Auto) 0.0 (0.0-0.7) 10^3/uL Baso # (Auto) 0.1 (0.0-0.1) 10^3/uL Absolute Nucleated RBC 0.00 x10^3/uL Nucleated RBC % 0.0 /100WBC Sodium 141 (135-145) mmol/L Potassium 4.7 (3.5-5.0) mmol/L Chloride 110 (101-111) mmol/L Carbon Dioxide 23 (21-32) mmol/L Anion Gap 8.0 (6-13) BUN 12 (6-20) mg/dL Creatinine 0.5 (0.4-1.0) mg/dL Estimated GFR (MDRD) 122 (>89) Glucose 252 H (70-100) mg/dL Calcium 8.0 L (8.5-10.3) mg/dL TSH 0.54 (0.34-5.60) uIU/mL ABX Reporting Has patient been on IV antibiotics over the past 48 hours?: Yes Assessment/Plan - Problem List (1) Uncontrolled pain Impression: -Patient was resistent to any movement or nursing cares early this AM -Added IV toradol Q6H as needed, remains on scheduled tylenol, and has refused oxycodone today -Continue therapies, PT/OT to evaluate today Weakness -Since having surgery, patient has been in bed until today -Continue PT/OT, anticipate [place] [facility] for rehab as long as patient is agreeable Status post operative repair of closed fracture of left hip -Now post op day #2, no complications -Baseline dementia, but patient has been participating -Continue pain control with tylenol, IV torodol, offer oxycodone as needed Closed left hip fracture -POA says that she was told patient fell yesterday, hit her head and left hip. Then fell again today at 5 PM out of bed, worsening the left hip pain -Lives at [facility] -Minimally impacted, incomplete intertrochanteric fracture of the left hip was seen on follow up lower extremity CT completed upon admission -Plans to undergo repair of the left hip with Dr. Meza after speaking to her POA -Continue to monitor, PT/OT post op Fall -Subsequent encounters with having risk factors that include; lower-extremity weakness, age, female gender, cognitive impairment, arthritis, and anemia -No reports of loss of consciousness during her falls -Orthostatic vital signs post op to rule out syncope as the cause, echocardiogram if appropriate -No mention of cardiac history besides HTN -Telemetry discontinued today since no pauses on tele -Fall precautions, PT to evaluate for possible SNF rehab Acute metabolic encephalopathy -Confusion is noted to be worse than the patients baseline -Electrolyte abnormalities on labs; potassium 3.2, now resolved -Now post op day #2, and change in environment -Hearing impairment also exacerbates this problem -Continue with post op cares, monitor for worsening mental status Macrocytic anemia -H/H is normal -Suspect poor nutrition, dementia are contributing factors -TSH was normal on 09/23 at 0.54 -Checking B12, folate labs in the AM -Routine labs COPD -Current tobacco use -Takes Combivent, Proair at home -Continues on duo-neb as needed while in the hospital Dementia -Imaging showed moderate diffuse parenchymal volume loss, chronic microangiopathic white matter changes -DNR/DNI with limited interventions, no POLST on file -Fall precautions Urinary incontinence -Recurrent infections, progression of dementia -UA normal on this admit -Bladder scans Chronic diarrhea -Prescribed Imodium at home, continues here Insulin dependent DM type 2 -Hemoglobin A1C on 09/11/2019 was 15.8% -Takes Kwikpen 15 units daily at home -Early AM sugars remain high, 217 this AM -Increased Lantus from 15 units to 18 units at HS, SSI and carb diet Protein calorie malnutrition Cachexia -Chronically ill appearance on exam -Dementia, anemia, contribute -Nutritional consult -PT/OT evaluations Hypokalemia -Now resolved, 4.7 today -Most likely from poor PO intake, baseline diarrhea -Known history of chronic diarrhea -Prescribed Imodium outpatient -Replace as needed, routine labs
[2019-09-23] MEDS: INSULIN ASPART 300 UNIT/3 ML PEN SUBQ SCH ×4 (09:15→20:57)
[2019-09-23] MEDS: ENOXAPARIN 30 MG/0.3 ML SYRINGE SUBQ SCH (09:16)
[2019-09-23] MEDS: CHOLECALCIFEROL 1,000 UNIT TABLET PO SCH (12:10)
[2019-09-23] MEDS: CALCIUM CARBONATE CHEW 500 MG TABLET PO SCH ×2 (12:12→20:58)
[2019-09-23] MEDS ORDERED: INSULIN ASPART 300 UNIT/3 ML PEN SUBQ ONE (17:12)
[2019-09-23] MEDS: INSULIN GLARGINE 300 UNIT/3 ML PEN SUBQ SCH (21:00)
[2019-09-24] MEDS: KETOROLAC 15 MG/ML VIAL IVP PRN (05:32)
[2019-09-24 05:36] LABS: BASOPHILS # (AUTO) 0.1 10^3/uL (0.0-0.1); BASOPHILS % (AUTO) 0.8 %; EOSINOPHILS # (AUTO) 0.2 10^3/uL (0.0-0.7); EOSINOPHILS % (AUTO) 2.1 %; HGB - HEMOGLOBIN 10.9 g/dL (12.0-16.0); LYMPHOCYTES # (AUTO) 1.9 10^3/uL (1.5-3.5); LYMPHOCYTES % (AUTO) 17.4 %; MEAN CORPUSCULAR HEMOGLOBIN 30.9 pg (27.0-31.0); MEAN CORPUSCULAR HGB CONC 31.2 g/dL (32.0-36.0); MEAN CORPUSCULAR VOLUME 98.9 fL (81.0-99.0); MEAN PLATELET VOLUME 10.1 fL (7.9-10.8); MONOCYTES # (AUTO) 0.6 10^3/uL (0.0-1.0); MONOCYTES % (AUTO) 5.7 %; NEUTROPHILS # (AUTO) 7.8 10^3/uL (1.5-6.6); NEUTROPHILS % (AUTO) 73.1 %; PLT - PLATELET COUNT 230 10^3/uL (130-450); RED BLOOD COUNT 3.53 10^6/uL (4.20-5.40); RED CELL DISTRIBUTION WIDTH 13.1 % (12.0-15.0); WHITE BLOOD COUNT 10.7 x10^3/uL (4.8-10.8)
[2019-09-24] MEDS: SODIUM CHLORIDE FLUSH 0.9% 10 ML SYRINGE IVP PRN ×2 (05:43→05:44)
[2019-09-24 05:47] LABS: CREATININE 0.6 mg/dL (0.4-1.0)
[2019-09-24 05:48] LABS: HEMOGLOBIN A1C 1.41 g/dL; HEMOGLOBIN A1C % 13.9 % (4.6-6.2)
[2019-09-24] MEDS: PANTOPRAZOLE 40 MG VIAL IVP SCH (06:03)
[2019-09-24] MEDS: INSULIN ASPART 300 UNIT/3 ML PEN SUBQ SCH ×4 (08:01→21:29)
[2019-09-24] MEDS: ENOXAPARIN 30 MG/0.3 ML SYRINGE SUBQ SCH (08:01)
[2019-09-24] MEDS: CHOLECALCIFEROL 1,000 UNIT TABLET PO SCH (08:01)
[2019-09-24] MEDS: MULTIVITAMIN W/MINERALS TABLET PO SCH (08:01)
[2019-09-24] MEDS: SODIUM CHLORIDE FLUSH 0.9% 10 ML SYRINGE IVP SCH ×2 (08:02→16:59)
[2019-09-24] MEDS: CALCIUM CARBONATE CHEW 500 MG TABLET PO SCH ×2 (08:02→21:29)
[2019-09-24] MEDS ORDERED: ONDANSETRON 4 MG/2 ML VIAL IVP ONE (08:30)
[2019-09-24] MEDS ORDERED: PROPOFOL 200 MG/20 ML VIAL IVP ONE (08:30)
[2019-09-24] MEDS ORDERED: fentaNYL 100 MCG/2 ML VIAL IVP ONE (08:30)
[2019-09-24 09:08] LABS: HGB - HEMOGLOBIN 10.8 g/dL (12.0-16.0)
[2019-09-24] MEDS: polyethylene glycoL 3350 17 GM PACKET PO SCH (09:23)
--- NOTE | 2019-09-24 09:39 | XRAY Report ---
Reason: sob Procedure Date: 09/24/2019 Accession Number: [id number] / [id number] Procedure: XR - Chest 1 View X-Ray CPT Code: 82393 Final Report FULL RESULT: EXAM: CHEST RADIOGRAPHY EXAM DATE: 09/24/2019 09:21 AM. CLINICAL HISTORY: Shortness of breath. COMPARISON: CHEST 2 VIEW 09/10/2019 6:44 PM. TECHNIQUE: 1 view. FINDINGS: Lungs/Pleura: No focal opacities evident. No pleural effusion. No pneumothorax. Mediastinum: Within exam limitations, the cardiomediastinal contour is normal. Other: Irregularity about the posterior lateral left sixth rib again present suggesting old healed fracture. IMPRESSION: No acute disease. RADIA
--- NOTE | 2019-09-24 15:10 | PROVIDER PROGRESS NOTE ---
Assessment/Plan - Problem List (1) Closed left hip fracture Qualifiers: Qualified Code(s): S72.002A - Fracture of unspecified part of neck of left femur, initial encounter for closed fracture Assessment/Plan: pt is s/p of closed fracture of left hip. Continue PT/OT post op for evaluation and treatment. continue pain control continue followup orthopedics, DVT prophylaxis possible swing bed or SNF rehab for d/c plan on tomorrow. Fall Fall precautions, PT/OT to evaluate and treat for pt, and possible swing bed or SNF rehab for d/c plan Acute metabolic encephalopathy resolved anemia stable. pt had HGB 10.8 today COPD stable and improved. pt has 94% sat on room air today. Continues on duo-neb as needed while in the hospital Dementia stable, Fall precautions Insulin dependent DM type 2 Hemoglobin A1C on 09/24/2019 was 13.9% Increased Lantus to 18 units continue SSI and carb diet Protein calorie malnutrition Cachexia pt has hx of Dementia, malnutrition. BMI is 15.5 Nutritional consult, will followup encourage pt eat Hypokalemia resolved. - Current Meds Current Meds: Current Medications Generic Name Dose Route Start Last Admin Trade Name Freq PRN Reason Stop Dose Admin Calcium Carbonate/Glycine 500 mg 09/23/19 11:00 09/24/19 08:02 Tums PO 500 mg BID [facility] Administration Cholecalciferol 2,000 unit 09/23/19 11:00 09/24/19 08:01 Vitamin D3 PO 2,000 unit DAILY [facility] Administration Enoxaparin Sodium 30 mg 09/23/19 09:00 09/24/19 08:01 Lovenox SUBQ 30 mg DAILY [facility] Administration Hydralazine HCl 10 mg 09/22/19 02:10 09/22/19 02:39 Apresoline Inj IVP 10 mg Q6H PRN Administration PER PHYSICIAN ORDER Acetaminophen 100 mls @ 400 mls/hr 09/22/19 13:46 09/23/19 00:57 Ofirmev IV Infused Q6HR PRN Infusion PAIN Insulin Aspart 1 - 9 unit 09/23/19 17:00 09/24/19 11:42 Novolog SUBQ 5 unit 0800,1200,1700,2100 [facility] Administration Protocol Insulin Glargine 18 unit 09/23/19 21:00 09/23/19 21:00 Lantus Solostar SUBQ 18 unit QPM [facility] Administration Ketorolac Tromethamine 15 mg 09/23/19 09:00 09/24/19 05:32 Toradol Inj (15mg) IVP 09/28/19 08:59 15 mg Q6H PRN Administration PAIN Multivitamins/Minerals 1 tab 09/24/19 08:00 09/24/19 08:01 Theragran M PO 1 tab DAILYWM [facility] Administration Pantoprazole Sodium 40 mg 09/22/19 07:00 09/24/19 06:03 Protonix IVP 40 mg QDAC [facility] Administration Polyethylene Glycol 17 gm 09/24/19 09:00 09/24/19 09:23 Miralax PO 17 gm DAILY [facility] Administration Sodium Chloride 10 ml 09/21/19 23:38 09/24/19 05:44 Normal Saline Flush 0.9% IVP 10 ml PRN PRN Administration NEEDED PER PROVIDER ORDERS Sodium Chloride 10 ml 09/22/19 01:00 09/24/19 08:02 Normal Saline Flush 0.9% IVP 10 ml 0100,0900,1700 IO[facility] Administration - Lab Result Fish Bone Diagrams: 09/24/19 09:00 09/24/19 05:10 Subjective - Subjective Patient Reports: Feeling Better Objective Vital Signs: Vital Signs - 24 hr 09/23/19 09/23/19 09/24/19 16:19 23:50 05:00 Temperature 36.8 C 36.9 C 36.9 C Heart Rate [ 84 93 82 Brachial] Respiratory 20 20 18 Rate Blood Pressure 151/71 H 154/76 H 162/81 H [Left Brachial artery] O2 Saturation 95 92 95 09/24/19 09/24/19 09/24/19 06:45 07:20 08:28 Temperature 36.9 C Heart Rate [ 86 81 Brachial] Respiratory 18 Rate Blood Pressure 153/81 H 149/75 H [Left Brachial artery] O2 Saturation 93 94 Oxygen O2 Source Room air I&O (Last 24 Hrs): Intake and Output Totals x24h 09/22/19 09/23/19 09/24/19 23:59 23:59 23:59 Intake Total 2200 2555.000 940 Output Total 500 2325 300 Balance 1700 230.000 640 General: Alert, No acute distress HEENT: Atraumatic Neck: Supple Lymphatic: no adenopathy Neuro: Alert, Non Focal Cardiovascular: Regular rate, Normal S1, Normal S2 Respiratory: Chest non-tender, No respiratory distress, Breath sounds nml Abdomen: Normal bowel sounds, Soft Extremities: No edema, Normal pulses - Results Results: Laboratory Results WBC 10.7 x10^3/uL (4.8-10.8) 09/24/19 05:10 RBC 3.53 10^6/uL (4.20-5.40) L 09/24/19 05:10 Hgb 10.8 g/dL (12.0-16.0) L 09/24/19 09:00 Hct 34.0 % (37.0-47.0) L 09/24/19 09:00 MCV 98.9 fL (81.0-99.0) 09/24/19 05:10 MCH 30.9 pg (27.0-31.0) 09/24/19 05:10 MCHC 31.2 g/dL (32.0-36.0) L 09/24/19 05:10 RDW 13.1 % (12.0-15.0) 09/24/19 05:10 Plt Count 230 10^3/uL (130-450) 09/24/19 05:10 MPV 10.1 fL (7.9-10.8) 09/24/19 05:10 Neut # (Auto) 7.8 10^3/uL (1.5-6.6) H 09/24/19 05:10 Lymph # (Auto) 1.9 10^3/uL (1.5-3.5) 09/24/19 05:10 [place] # (Auto) 0.6 10^3/uL (0.0-1.0) 09/24/19 05:10 Eos # (Auto) 0.2 10^3/uL (0.0-0.7) 09/24/19 05:10 Baso # (Auto) 0.1 10^3/uL (0.0-0.1) 09/24/19 05:10 Absolute Nucleated RBC 0.00 x10^3/uL 09/24/19 05:10 Nucleated RBC % 0.0 /100WBC 09/24/19 05:10 PT 11.4 secs (9.9-12.6) 09/21/19 23:37 INR 1.0 (0.8-1.2) 09/21/19 23:37 APTT 26.7 secs (24.9-33.3) 09/21/19 23:37 Sodium 138 mmol/L (135-145) 09/24/19 05:10 Potassium 3.8 mmol/L (3.5-5.0) 09/24/19 05:10 Chloride 105 mmol/L (101-111) 09/24/19 05:10 Carbon Dioxide 25 mmol/L (21-32) 09/24/19 05:10 Anion Gap 8.0 (6-13) 09/24/19 05:10 BUN 16 mg/dL (6-20) 09/24/19 05:10 Creatinine 0.6 mg/dL (0.4-1.0) 09/24/19 05:10 Estimated GFR (MDRD) 99 (>89) 09/24/19 05:10 Glucose 135 mg/dL (70-100) H 09/24/19 05:10 POC Whole Bld Glucose 250 mg/dL (70 - 100) H 09/24/19 10:58 Glycated Hemoglobin 13.9 % (4.6-6.2) H 09/24/19 05:10 Estim Average Glucose 352 (70-100) H 09/24/19 05:10 Calcium 8.0 mg/dL (8.5-10.3) L 09/24/19 05:10 Total Bilirubin 0.5 mg/dL (0.2-1.0) 09/21/19 23:37 AST 15 IU/L (10-42) 09/21/19 23:37 ALT 27 IU/L (10-60) 09/21/19 23:37 Alkaline Phosphatase 72 IU/L (42-121) 09/21/19 23:37 Total Protein 5.5 g/dL (6.7-8.2) L 09/21/19 23:37 Albumin 2.8 g/dL (3.2-5.5) L 09/21/19 23:37 Globulin 2.7 g/dL (2.1-4.2) 09/21/19 23:37 Albumin/Globulin Ratio 1.0 (1.0-2.2) 09/21/19 23:37 Lipase 35 U/L (22-51) 09/21/19 23:37 TSH 0.54 uIU/mL (0.34-5.60) 09/23/19 05:00 Urine Color YELLOW 09/21/19 23:30 Urine Clarity CLEAR (CLEAR) 09/21/19 23:30 Urine pH 6.0 PH (5.0-7.5) 09/21/19 23:30 Ur Specific [place] 1.010 (1.002-1.030) 09/21/19 23:30 Urine Protein NEGATIVE mg/dL (NEGATIVE) 09/21/19 23:30 Urine Glucose (UA) >=1000 mg/dL (NEGATIVE) H 09/21/19 23:30 Urine Ketones NEGATIVE mg/dL (NEGATIVE) 09/21/19: Urine Occult Blood NEGATIVE (NEGATIVE) 09/21/19: Urine Nitrite NEGATIVE (NEGATIVE) 09/21/19 23: Urine Bilirubin NEGATIVE (NEGATIVE) 09/21/19 23:30 Urine Urobilinogen 0.2 (NORMAL) E.U./dL (NORMAL) 09/21/19 23:30 Ur Leukocyte Esterase NEGATIVE (NEGATIVE) 09/21/19 23:30 Ur Microscopic Review NOT INDICATED 09/21/19: Urine Culture Comments NOT INDICATED 09/21/19 23:30 Sepsis Event Note (H) - Evaluation Current Stage of Sepsis: Ruled out ABX Reporting Has patient been on IV antibiotics over the past 48 hours?: No Current Medications - Current Medications Current Medications: Active Medications Acetaminophen (Tylenol) 650 - 975 mg PO Q4HR PRN PRN Reason: PAIN Albuterol () 2.5 mg INH RTQ4H PRN PRN Reason: Wheezing Albuterol/Ipratropium (Duoneb) 3 ml INH Q4HR PRN PRN Reason: Wheezing Calcium Carbonate/Glycine (Tums) 500 mg PO BID [facility] Last Admin: 09/24/19 08:02 Dose: 500 mg Cholecalciferol (Vitamin D3) 2,000 unit PO DAILY [facility] Last Admin: 09/24/19 08:01 Dose: 2,000 unit Docusate Sodium (Colace 100mg Capsule) 100 mg PO BID PRN PRN Reason: Constipation Enoxaparin Sodium (Lovenox) 30 mg SUBQ DAILY [facility] Last Admin: 09/24/19 08:01 Dose: 30 mg Hydralazine HCl (Apresoline Inj) 10 mg IVP Q6H PRN PRN Reason: PER PHYSICIAN ORDER Last Admin: 09/22/19 02:39 Dose: 10 mg Acetaminophen (Ofirmev) 100 mls @ 400 mls/hr IV Q6HR PRN PRN Reason: PAIN Last Infusion: 09/23/19 00:57 Dose: Infused Insulin Aspart (Novolog) 1 - 9 unit SUBQ 0800,1200,1700,2100 [facility]; Protocol Last Admin: 09/24/19 11:42 Dose: 5 unit Insulin Glargine (Lantus Solostar) 18 unit SUBQ QPM [facility] Last Admin: 09/23/19 21:00 Dose: 18 unit Ketorolac Tromethamine (Toradol Inj (15mg)) 15 mg IVP Q6H PRN PRN Reason: PAIN Stop: 09/28/19 08:59 Last Admin: 09/24/19 05:32 Dose: 15 mg Multivitamins/Minerals (Theragran M) [facility] Last Admin: 09/24/19 08:01 Dose: 1 tab Ondansetron HCl (Zofran Inj) 4 mg IVP Q6HR PRN PRN Reason: Nausea / Vomiting Oxycodone HCl (Roxicodone) 5 mg PO Q4HR PRN PRN Reason: Pain 5 to 7 Pantoprazole Sodium (Protonix) 40 mg IVP QDAC [facility] Last Admin: 09/24/19 06:03 Dose: 40 mg Polyethylene Glycol (Miralax) 17 gm PO DAILY [facility] Last Admin: 09/24/19 09:23 Dose: 17 gm Prochlorperazine Edisylate (Compazine Inj) 10 mg IVP Q6HR PRN PRN Reason: Nausea / Vomiting Senna (Senokot) 17.2 mg PO Q12H PRN PRN Reason: Constipation Sodium Chloride (Normal Saline Flush 0.9%) 10 ml IVP PRN PRN PRN Reason: NEEDED PER PROVIDER ORDERS Last Admin: 09/24/19 05:44 Dose: 10 ml Sodium Chloride (Normal Saline Flush 0.9%) 10 ml IVP 0100,0900,1700 [facility] Last Admin: 09/24/19 08:02 Dose: 10 ml Hydrocortisone 1% Oint [Hydrocortisone] 1 applic TOP PRN PRN 09/11/19 Insulin Glargine,Hum.rec.anlog [Basaglar Kwikpen U-100] 15 units SUBQ DAILY 09/11/19 Loperamide [Imodium] 2 mg PO TID PRN 09/16/19 Ipratropium/Albuterol [Combivent Respimat] 1 puffs INH Q6H PRN 09/22/19
[2019-09-24] MEDS: INSULIN GLARGINE 300 UNIT/3 ML PEN SUBQ SCH (21:30)
[2019-09-25] MEDS: KETOROLAC 15 MG/ML VIAL IVP PRN (01:02)
[2019-09-25] MEDS: SODIUM CHLORIDE FLUSH 0.9% 10 ML SYRINGE IVP SCH ×3 (01:02→16:41)
[2019-09-25 04:48] LABS: BASOPHILS # (AUTO) 0.1 10^3/uL (0.0-0.1); BASOPHILS % (AUTO) 0.7 %; EOSINOPHILS # (AUTO) 0.1 10^3/uL (0.0-0.7); EOSINOPHILS % (AUTO) 0.7 %; HGB - HEMOGLOBIN 10.9 g/dL (12.0-16.0); LYMPHOCYTES # (AUTO) 1.7 10^3/uL (1.5-3.5); LYMPHOCYTES % (AUTO) 9.8 %; MEAN CORPUSCULAR HEMOGLOBIN 30.6 pg (27.0-31.0); MEAN CORPUSCULAR VOLUME 98.9 fL (81.0-99.0); MEAN PLATELET VOLUME 10.3 fL (7.9-10.8); MONOCYTES % (AUTO) 5.6 %; NEUTROPHILS # (AUTO) 14.3 10^3/uL (1.5-6.6); NEUTROPHILS % (AUTO) 82.1 %; PLT - PLATELET COUNT 265 10^3/uL (130-450); RED BLOOD COUNT 3.56 10^6/uL (4.20-5.40); RED CELL DISTRIBUTION WIDTH 13.1 % (12.0-15.0); WHITE BLOOD COUNT 17.4 x10^3/uL (4.8-10.8)
[2019-09-25 05:02] LABS: CALCIUM 8.6 mg/dL (8.5-10.3); CREATININE 0.7 mg/dL (0.4-1.0)
[2019-09-25] MEDS: SODIUM CHLORIDE FLUSH 0.9% 10 ML SYRINGE IVP PRN (05:58)
[2019-09-25] MEDS: PANTOPRAZOLE 40 MG VIAL IVP SCH (06:00)
[2019-09-25] MEDS ORDERED: INSULIN ASPART 300 UNIT/3 ML PEN SUBQ SCH (08:00)
[2019-09-25] MEDS: MULTIVITAMIN W/MINERALS TABLET PO SCH (09:07)
[2019-09-25] MEDS: CHOLECALCIFEROL 1,000 UNIT TABLET PO SCH (09:07)
[2019-09-25] MEDS: SODIUM CHLORIDE 0.9% 1,000 ML IV SCH ×2 (09:07→21:10)
[2019-09-25] MEDS: ENOXAPARIN 30 MG/0.3 ML SYRINGE SUBQ SCH (09:08)
[2019-09-25] MEDS: CALCIUM CARBONATE CHEW 500 MG TABLET PO SCH ×2 (09:08→20:44)
[2019-09-25] MEDS: polyethylene glycoL 3350 17 GM PACKET PO SCH (09:08)
[2019-09-25 10:42] LABS: BILIRUBIN,URINE NEGATIVE (NEGATIVE); GLUCOSE, URINE (UA) >=1000 mg/dL (NEGATIVE); KETONES,URINE (UA) TRACE mg/dL (NEGATIVE); LEUKOCYTE ESTERASE, URINE NEGATIVE (NEGATIVE); NITRITE,URINE NEGATIVE (NEGATIVE); OCCULT BLOOD,URINE NEGATIVE (NEGATIVE); PROTEIN,URINE NEGATIVE (NEGATIVE); UROBILINOGEN,URINE 0.2 (NORMAL) E.U./dL (NORMAL)
[2019-09-25 10:51] LABS: CLARITY,URINE CLEAR (CLEAR)
[2019-09-25] MEDS ORDERED: MIN OIL/DIMETHICON/COCONUT OIL 92 GM TUBE TOP PRN (10:51)
[2019-09-25 10:53] LABS: RBC,URINE 0-5 /HPF (0-5)
[2019-09-25 10:54] LABS: BACTERIA,URINE Few /HPF (None Seen); SQUAMOUS EPITHELIAL CELL,UR FEW Squamous (<= Few); YEAST,URINE PRESENT
[2019-09-25] MEDS: INSULIN ASPART 300 UNIT/3 ML PEN SUBQ SCH ×3 (11:50→21:08)
[2019-09-25 12:09] LABS: BASOPHILS # (AUTO) 0.1 10^3/uL (0.0-0.1); BASOPHILS % (AUTO) 0.5 %; EOSINOPHILS # (AUTO) 0.1 10^3/uL (0.0-0.7); EOSINOPHILS % (AUTO) 0.8 %; HGB - HEMOGLOBIN 10.4 g/dL (12.0-16.0); LYMPHOCYTES % (AUTO) 7.4 %; MEAN CORPUSCULAR HGB CONC 31.8 g/dL (32.0-36.0); MEAN CORPUSCULAR VOLUME 100.6 fL (81.0-99.0); MEAN PLATELET VOLUME 10.1 fL (7.9-10.8); MONOCYTES # (AUTO) 0.8 10^3/uL (0.0-1.0); MONOCYTES % (AUTO) 6.1 %; NEUTROPHILS # (AUTO) 10.8 10^3/uL (1.5-6.6); NEUTROPHILS % (AUTO) 84.3 %; PLT - PLATELET COUNT 214 10^3/uL (130-450); RED BLOOD COUNT 3.25 10^6/uL (4.20-5.40); RED CELL DISTRIBUTION WIDTH 13.1 % (12.0-15.0); WHITE BLOOD COUNT 12.9 x10^3/uL (4.8-10.8)
--- NOTE | 2019-09-25 15:14 | PROVIDER PROGRESS NOTE ---
Assessment/Plan - Problem List (1) Closed left hip fracture Qualifiers: Qualified Code(s): S72.002A - Fracture of unspecified part of neck of left femur, initial encounter for closed fracture Assessment/Plan: 09/25 pt report her pain is controlled. continue PT/OT pt is s/p of closed fracture of left hip. Continue PT/OT post op for evaluation and treatment. continue pain control continue followup orthopedics, DVT prophylaxis possible swing bed or SNF rehab for d/c plan on tomorrow. Fever with elevated WBC 09/25 pt has elevated WBC 17 with elevated temperature to 37.8. pt was d/c about two weeks with fever without obvious infection recourse. order blood culture start with Zosyn Fall Fall precautions, PT/OT to evaluate and treat for pt, and possible swing bed or SNF rehab for d/c plan Acute metabolic encephalopathy resolved anemia stable. pt had HGB 10.8 today COPD stable and improved. pt has 94% sat on room air today. Continues on duo-neb as needed while in the hospital Dementia stable, Fall precautions Insulin dependent DM type 2 09/25 pt has low sugar at this morning decrease Lantus to 15 unit on PM decrease slide scale to middle level continue ACHS and hypoglycemia protocol Hemoglobin A1C on 09/24/2019 was 13.9% Increased Lantus to 18 units continue SSI and carb diet Protein calorie malnutrition Cachexia pt has hx of Dementia, malnutrition. BMI is 15.5 Nutritional consult, will followup encourage pt eat Hypokalemia resolved. - Current Meds Current Meds: Current Medications Generic Name Dose Route Start Last Admin Trade Name Freq PRN Reason Stop Dose Admin Calcium Carbonate/Glycine 500 mg 09/23/19 11:00 09/25/19 09:08 Tums PO 500 mg BID IOANA Administration Cholecalciferol 2,000 unit 09/23/19 11:00 09/25/19 09:07 Vitamin D3 PO 2,000 unit DAILY IOANA Administration Enoxaparin Sodium 30 mg 09/23/19 09:00 09/25/19 09:08 Lovenox SUBQ 30 mg DAILY IOANA Administration Hydralazine HCl 10 mg 09/22/19 02:10 09/22/19 02:39 Apresoline Inj IVP 10 mg Q6H PRN Administration PER PHYSICIAN ORDER Acetaminophen 100 mls @ 400 mls/hr 09/22/19 13:46 09/23/19 00:57 Ofirmev IV Infused Q6HR PRN Infusion PAIN Sodium Chloride 1,000 mls @ 83.333 mls/hr 09/25/19 09:00 09/25/19 09:07 Normal Saline 0.9% IV 09/26/19 08:59 83.333 mls/hr .Q12H IOANA Administration Insulin Aspart 1 - 9 unit 09/25/19 12:00 09/25/19 11:50 Novolog SUBQ 3 unit 0800,1200,1700,2100 IOANA Administration Protocol Multivitamins/Minerals 1 tab 09/24/19 08:00 09/25/19 09:07 Theragran M PO 1 tab DAILYWM IOANA Administration Pantoprazole Sodium 40 mg 09/22/19 07:00 09/25/19 06:00 Protonix IVP 40 mg QDAC IOANA Administration Polyethylene Glycol 17 gm 09/24/19 09:00 09/25/19 09:08 Miralax PO 17 gm DAILY IOANA Administration Sodium Chloride 10 ml 09/21/19 23:38 09/25/19 05:58 Normal Saline Flush 0.9% IVP 10 ml PRN PRN Administration NEEDED PER PROVIDER ORDERS Sodium Chloride 10 ml 09/22/19 01:00 09/25/19 09:09 Normal Saline Flush 0.9% IVP Not Given 0100,0900,1700 IOANA - Lab Result Fish Bone Diagrams: 09/25/19 11:52 09/25/19 04:25 - Additional Planning My Orders: My Active Orders 09/25/19 Blood Culture [CULTURE, BLOOD #1] [] Urgent Blood Culture [CULTURE, BLOOD #2] [RM] Urgent 09/25/19 09:00 Sodium Chloride 0.9% [Normal Saline 0.9%] 1,000 ml IV 83.333 mls/hr 09/25/19 10:51 Min Oil/Dimeth/Coconut Oil Crm [Cavilon] 1 applic TOP PRN PRN 09/25/19 12:00 Insulin Aspart [NovoLOG] 1 - 9 unit SUBQ 0800,1200,1700,2100 09/25/19 15:00 Piperacillin/Tazobactam [Zosyn] 3.375 gm Sodium Chloride 0.9% Minibag [Normal Saline 0.9% Minibag] 100 ml IV Q6H 09/25/19 21:00 Insulin Glargine [Lantus Solostar] 15 unit SUBQ QPM Subjective - Subjective Patient Reports: Fever Objective Vital Signs: Vital Signs - 24 hr 09/24/19 09/25/19 09/25/19 15:53 00:40 01:03 Temperature 36.5 C 37.8 C H 37.0 C Heart Rate [ 103 H 106 H Brachial] Respiratory 18 20 Rate Blood Pressure 142/62 H [Left Brachial artery] Blood Pressure 141/59 H [Right Brachial artery] O2 Saturation 92 91 L 09/25/19 09/25/19 09/25/19 05:00 07:49 14:06 Temperature 36.8 C 36.8 C 37 C Heart Rate [ 86 80 85 Brachial] Respiratory 18 20 16 Rate Blood Pressure 119/52 L [Left Brachial artery] Blood Pressure 114/62 139/70 H [Right Brachial artery] O2 Saturation 92 92 93 Oxygen O2 Source Room air I&O (Last 24 Hrs): Intake and Output Totals x24h 09/23/19 09/24/19 09/25/19 23:59 23:59 23:59 Intake Total 2555.000 940 596 Output Total 2325 500 100 Balance 230.000 440 496 General: Alert, No acute distress HEENT: Atraumatic Neck: Supple Lymphatic: no adenopathy Neuro: Alert, Non Focal Cardiovascular: Regular rate, Normal S1, Normal S2 Respiratory: Chest non-tender, No respiratory distress Abdomen: Normal bowel sounds, Soft Extremities: No edema, Normal pulses - Results Results: Laboratory Results WBC 12.9 x10^3/uL (4.8-10.8) H 09/25/19 11:52 RBC 3.25 10^6/uL (4.20-5.40) L 09/25/19 11:52 Hgb 10.4 g/dL (12.0-16.0) L 09/25/19 11:52 Hct 32.7 % (37.0-47.0) L 09/25/19 11:52 MCV 100.6 fL (81.0-99.0) H 09/25/19 11:52 MCH 32.0 pg (27.0-31.0) H 09/25/19 11:52 MCHC 31.8 g/dL (32.0-36.0) L 09/25/19 11:52 RDW 13.1 % (12.0-15.0) 09/25/19 11:52 Plt Count 214 10^3/uL (130-450) 09/25/19 11:52 MPV 10.1 fL (7.9-10.8) 09/25/19 11:52 Neut # (Auto) 10.8 10^3/uL (1.5-6.6) H 09/25/19 11:52 Lymph # (Auto) 1.0 10^3/uL (1.5-3.5) L 09/25/19 11:52 [place] # (Auto) 0.8 10^3/uL (0.0-1.0) 09/25/19 11:52 Eos # (Auto) 0.1 10^3/uL (0.0-0.7) 09/25/19 11:52 Baso # (Auto) 0.1 10^3/uL (0.0-0.1) 09/25/19 11:52 Absolute Nucleated RBC 0.00 x10^3/uL 09/25/19 11:52 Nucleated RBC % 0.0 /100WBC 09/25/19 11:52 PT 11.4 secs (9.9-12.6) 09/21/19 23:37 INR 1.0 (0.8-1.2) 09/21/19 23:37 APTT 26.7 secs (24.9-33.3) 09/21/19 23:37 Sodium 143 mmol/L (135-145) 09/25/19 04:25 Potassium 3.9 mmol/L (3.5-5.0) 09/25/19 04:25 Chloride 106 mmol/L (101-111) 09/25/19 04:25 Carbon Dioxide 29 mmol/L (21-32) 09/25/19 04:25 Anion Gap 8.0 (6-13) 09/25/19 04:25 BUN 15 mg/dL (6-20) 09/25/19 04:25 Creatinine 0.7 mg/dL (0.4-1.0) 09/25/19 04:25 Estimated GFR (MDRD) 83 (>89) L 09/25/19 04:25 Glucose 73 mg/dL (70-100) 09/25/19 04:25 POC Whole Bld Glucose 197 mg/dL (70 - 100) H 09/25/19 11:28 Glycated Hemoglobin 13.9 % (4.6-6.2) H 09/24/19 05:10 Estim Average Glucose 352 (70-100) H 09/24/19 05:10 Calcium 8.6 mg/dL (8.5-10.3) 09/25/19 04:25 Total Bilirubin 0.5 mg/dL (0.2-1.0) 09/21/19 23:37 AST 15 IU/L (10-42) 09/21/19 23:37 ALT 27 IU/L (10-60) 09/21/19 23:37 Alkaline Phosphatase 72 IU/L (42-121) 09/21/19 23:37 Total Protein 5.5 g/dL (6.7-8.2) L 09/21/19 23:37 Albumin 2.8 g/dL (3.2-5.5) L 09/21/19 23:37 Globulin 2.7 g/dL (2.1-4.2) 09/21/19 23:37 Albumin/Globulin Ratio 1.0 (1.0-2.2) 09/21/19 23:37 Lipase 35 U/L (22-51) 09/21/19 23:37 TSH 0.54 uIU/mL (0.34-5.60) 09/23/19 05:00 Urine Color DARK YELLOW 09/25/19 10:30 Urine Clarity CLEAR (CLEAR) 09/25/19 10:30 Urine pH 6.0 PH (5.0-7.5) 09/25/19 10:30 Ur Specific [place] 1.020 (1.002-1.030) 09/25/19 10:30 Urine Protein NEGATIVE mg/dL (NEGATIVE) 09/25/19 10:30 Urine Glucose (UA) >=1000 mg/dL (NEGATIVE) H 09/25/19 10:30 Urine Ketones TRACE mg/dL (NEGATIVE) 09/25/19 10:30 Urine Occult Blood NEGATIVE (NEGATIVE) 09/25/19 10:30 Urine Nitrite NEGATIVE (NEGATIVE) 09/25/19 10:30 Urine Bilirubin NEGATIVE (NEGATIVE) 09/25/19 10:30 Urine Urobilinogen 0.2 (NORMAL) E.U./dL (NORMAL) 09/25/19 10:30 Ur Leukocyte Esterase NEGATIVE (NEGATIVE) 09/25/19 10:30 Urine RBC 0-5 /HPF (0-5) 09/25/19 10:30 Urine WBC 0-3 /HPF (0-5) 09/25/19 10:30 Ur Squamous Epith Cells FEW Squamous (<= Few) 09/25/19 10:30 Urine Bacteria Few /HPF (None Seen) 09/25/19 10:30 Urine Yeast PRESENT 09/25/19 10:30 Ur Microscopic Review NOT INDICATED 09/21/19 23:30 Urine Culture Comments NOT INDICATED 09/25/19 10:30 Sepsis Event Note (H) - Evaluation Current Stage of Sepsis: Ruled out ABX Reporting Has patient been on IV antibiotics over the past 48 hours?: Yes Current Medications - Current Medications Current Medications: Active Medications Acetaminophen (Tylenol) 650 - 975 mg PO Q4HR PRN PRN Reason: PAIN Albuterol () 2.5 mg INH RTQ4H PRN PRN Reason: Wheezing Albuterol/Ipratropium (Duoneb) 3 ml INH Q4HR PRN PRN Reason: Wheezing Calcium Carbonate/Glycine (Tums) 500 mg PO BID [facility] Last Admin: 09/25/19 09:08 Dose: 500 mg Cholecalciferol (Vitamin D3) 2,000 unit PO DAILY [facility] Last Admin: 09/25/19 09:07 Dose: 2,000 unit Docusate Sodium (Colace 100mg Capsule) 100 mg PO BID PRN PRN Reason: Constipation Enoxaparin Sodium (Lovenox) 30 mg SUBQ DAILY [facility] Last Admin: 09/25/19 09:08 Dose: 30 mg Hydralazine HCl (Apresoline Inj) 10 mg IVP Q6H PRN PRN Reason: PER PHYSICIAN ORDER Last Admin: 09/22/19 02:39 Dose: 10 mg Acetaminophen (Ofirmev) 100 mls @ 400 mls/hr IV Q6HR PRN PRN Reason: PAIN Last Infusion: 09/23/19 00:57 Dose: Infused Sodium Chloride (Normal Saline 0.9%) 1,000 mls @ 83.333 mls/hr IV .Q12H [facility] Stop: 09/26/19 08:59 Last Admin: 09/25/19 09:07 Dose: 83.333 mls/hr Piperacillin Sod/Tazobactam (Sod 3.375 gm/ Sodium Chloride) 100 mls @ 200 mls/hr IV Q6H [facility] Insulin Aspart (Novolog) 1 - 9 unit SUBQ 0800,1200,1700,2100 [facility]; Protocol Last Admin: 09/25/19 11:50 Dose: 3 unit Insulin Glargine (Lantus Solostar) 15 unit SUBQ QPM [facility] Mineral Oil (Cavilon) 1 applic TOP PRN PRN PRN Reason: Skin Care Multivitamins/Minerals (Theragran M) 1 tab PO DAILYWM [facility] Last Admin: 09/25/19 09:07 Dose: 1 tab Ondansetron HCl (Zofran Inj) 4 mg IVP Q6HR PRN PRN Reason: Nausea / Vomiting Oxycodone HCl (Roxicodone) 5 mg PO Q4HR PRN PRN Reason: Pain 5 to 7 Pantoprazole Sodium (Protonix) 40 mg IVP QDAC [facility] Last Admin: 09/25/19 06:00 Dose: 40 mg Polyethylene Glycol (Miralax) 17 gm PO DAILY [facility] Last Admin: 09/25/19 09:08 Dose: 17 gm Prochlorperazine Edisylate (Compazine Inj) 10 mg IVP Q6HR PRN PRN Reason: Nausea / Vomiting Senna (Senokot) 17.2 mg PO Q12H PRN PRN Reason: Constipation Sodium Chloride (Normal Saline Flush 0.9%) 10 ml IVP PRN PRN PRN Reason: NEEDED PER PROVIDER ORDERS Last Admin: 09/25/19 05:58 Dose: 10 ml Sodium Chloride (Normal Saline Flush 0.9%) 10 ml IVP 0100,0900,1700 [facility] Last Admin: 09/25/19 09:09 Dose: Not Given Hydrocortisone 1% Oint [Hydrocortisone] 1 applic TOP PRN PRN 09/11/19 Insulin Glargine,Hum.rec.anlog [Basaglar Kwikpen U-100] 15 units SUBQ DAILY 09/11/19 Loperamide [Imodium] 2 mg PO TID PRN 09/16/19 Ipratropium/Albuterol [Combivent Respimat] 1 puffs INH Q6H PRN 09/22/19
[2019-09-25] MEDS ORDERED: PIPERACILLIN/TAZOBACTAM 3.375 GM in SODIUM CHLORIDE 0.9% MINIBAG 100 ML IV ONE (16:00)
[2019-09-25] MEDS: PIPERACILLIN/TAZOBACTAM 3.375 GM in SODIUM CHLORIDE 0.9% MINIBAG 100 ML IV SCH (20:36)
[2019-09-25] MEDS ORDERED: INSULIN GLARGINE 300 UNIT/3 ML PEN SUBQ SCH (21:00)
[2019-09-26] MEDS: SODIUM CHLORIDE FLUSH 0.9% 10 ML SYRINGE IVP SCH ×2 (00:40→11:29)
[2019-09-26] MEDS: PIPERACILLIN/TAZOBACTAM 3.375 GM in SODIUM CHLORIDE 0.9% MINIBAG 100 ML IV SCH ×2 (04:01→11:29)
[2019-09-26] MEDS: PANTOPRAZOLE 40 MG VIAL IVP SCH (06:03)
[2019-09-26 07:32] VITALS: BP 139/63
[2019-09-26 08:01] LABS: BASOPHILS # (AUTO) 0.1 10^3/uL (0.0-0.1); BASOPHILS % (AUTO) 0.8 %; EOSINOPHILS # (AUTO) 0.3 10^3/uL (0.0-0.7); EOSINOPHILS % (AUTO) 3.1 %; HGB - HEMOGLOBIN 9.1 g/dL (12.0-16.0); LYMPHOCYTES # (AUTO) 1.1 10^3/uL (1.5-3.5); LYMPHOCYTES % (AUTO) 13.4 %; MEAN CORPUSCULAR HEMOGLOBIN 31.9 pg (27.0-31.0); MEAN CORPUSCULAR HGB CONC 31.7 g/dL (32.0-36.0); MEAN CORPUSCULAR VOLUME 100.7 fL (81.0-99.0); MONOCYTES # (AUTO) 0.8 10^3/uL (0.0-1.0); MONOCYTES % (AUTO) 9.7 %; NEUTROPHILS % (AUTO) 72.4 %; PLT - PLATELET COUNT 196 10^3/uL (130-450); RED BLOOD COUNT 2.85 10^6/uL (4.20-5.40); RED CELL DISTRIBUTION WIDTH 12.9 % (12.0-15.0); WHITE BLOOD COUNT 8.3 x10^3/uL (4.8-10.8)
[2019-09-26 08:08] LABS: CALCIUM 7.5 mg/dL (8.5-10.3); CREATININE 0.7 mg/dL (0.4-1.0)
[2019-09-26] MEDS: CALCIUM CARBONATE CHEW 500 MG TABLET PO SCH (08:44)
[2019-09-26] MEDS: MULTIVITAMIN W/MINERALS TABLET PO SCH (08:44)
[2019-09-26] MEDS: CHOLECALCIFEROL 1,000 UNIT TABLET PO SCH (08:44)
[2019-09-26] MEDS: ENOXAPARIN 30 MG/0.3 ML SYRINGE SUBQ SCH (08:45)
[2019-09-26] MEDS: polyethylene glycoL 3350 17 GM PACKET PO SCH (08:45)
[2019-09-26] MEDS: INSULIN ASPART 300 UNIT/3 ML PEN SUBQ SCH ×2 (09:24→11:35)
--- NOTE | 2019-09-26 10:46 | Discharge Plan ---
"Discharge Plan for SNF / [facility] - Discharge Plan And Transition Orders Problem Reviewed?: Yes Disposition: 03 SNF DC/Xfer Condition: Stable Allergies and Adverse Reactions: Allergies Allergy/AdvReac Type Severity Reaction Status Date / Time No Known Drug Allergies Allergy Verified 09/10/19 18:37 Health Concerns: s/p of left hip repair, COPD Plan of Treatment: Aspirin for DVT prophylaxis, continue PT/OT, followup orthopedics office in two weeks or early as needed. Continue breath treatment and supplement of O2 as needed, and continue finish the course of antibiotics. Care Goals: stabilization of pt's medical condition,and pt can walk again. Assessment: discussed with pt about her care plan, she understood. - SNF / [facility] Transition Orders Admit to (Facility): [facility] Under the care of (Name): [facility] health provider Discharge Diagnosis: s/p of left hip repair, COPD with elevated temperature and WBC. fall, anemia, dementia, DM2, malnutrition, Medicare Certification Statement: I certify that Post Hospital care home care is medically necessary on a continuing basis for any of the conditions for which she/he is receiving care during hospitalization. Notify PCP of admission and forward orders to primary provider for signature. Weight on admission and: Daily Call PCP immediately if weight increases by: 2 kg Other Notification Orders: Call PCP immediately if patient develops dyspnea, chest pain/tightness or edema. House Bowel Program: Yes Additional Bowel Program Orders: If no BM after 2 days, nurse may give M.O.M. 30ml PO PRN and/or ducolax Supp 1 MI and/or ERIKA 250mg P.O., and/or senna 1-2 tabs PO. On day 3 nurse may give repeat above order until residents constipation is resolved. Annual Influenza Vaccine (between May 12 and December 09): Yes Two-step PPD per [facility] [id number] or approved exception documents: Yes Treatments & Other Orders: pt may followup health provider at [facility] when pt is arrival. Aspirin is prescribed for DVT prophylaxis. pt may continue PT/OT, pt may followup orthopedics office in two weeks or early as needed. pt may Continue breath treatment and supplement of O2 as needed, and continue finish the course of antibiotics. Oxygen Orders: PRN Medication Orders: PLEASE REFER TO THE DISCHARGE MEDICATION LIST. Insulin Orders?: No - Medications New Prescriptions: oxyCODONE [Roxicodone] 5 mg PO Q4HR PRN #20 tablet PRN Reason: Pain 5 to 7 Alendronate [Fosamax] 70 mg PO Q7D #1 tablet Amox/Clav 500/125 [Augmentin] 1 each PO Q12H #12 tablet Aspirin 325 mg PO DAILY #10 tablet Calcium Carbonate/Vitamin D3 [Calcium 500 mg-Vit D3 600 Unit] 1 each PO DAILY #10 tablet Saccharomyces Boulardii [Florastor] 250 mg PO BID #12 capsule - Diet Type: Geriatric Texture: Regular Liquids: Thin May have monthly special meal: Yes - Therapies | Activity Therapy: Evaluation | Treat if indicated: PT, OT Rehabilitation Potential: Maximize functional status Activity: Activity as Tolerated Additional Instructions: pt may followup health provider at [facility] when pt is arrival. Aspirin is prescribed for DVT prophylaxis. pt may continue PT/OT, pt may followup orthopedics office in two weeks or early as needed. pt may Continue breath treatment and supplement of O2 as needed, and may continue finish the course of antibiotics."
--- NOTE | 2019-09-26 11:16 | DISCHARGE SUMMARY ---
"Discharge Summary Admit Date: 09/21/19 Discharge Date: 09/26/19 Discharging Provider: Duke Lucio Primary Care Provider: Dr. Swanson Condition at Discharge: Stable Discharge Disposition: SNF DC/Xfer Discharge Facility Name: [facility] - DIAGNOSES Admission Diagnoses: (1) Closed left hip fracture (2) Type 1 diabetes mellitus with hyperglycemia (3) COPD (chronic obstructive pulmonary disease) Discharge Diagnoses with Status of Each Condition: 1, s/p left hip fracture repair stable, pt is d/c to [facility]. pt is prescribed pain meds, Aspirin for DVT prophylaxis, Calcium and vitamin D3, and fosamax for fall prevention and bone health. 2, Leukocytosis with elevated temperature stable, WBC is normal now. pt has no more fever, chill. I called lab, they state pt's blood culture is negative for bacteremia. pt has hx of fever without etiology in the last admission. it is likely from her COPD and s/p of operation with lung infection. pt is prescribed antibiotics 3, Fall stable, d/c SNF for more training 4, Acute metabolic encephalopathy resolved 5, COPD stable. pt has no respiratory distress. continue home inhaler PRN 6, Dementia stable 7, Insulin dependent DM type 2 stable, resume home insulin 8, malnutrition stable. discussed with pt, and encourage eat more. 9, Hypokalemia resolved. 10, anemia slight decreased HGB is 9.1. pt is asymptomatic for anemia. pt denies GI bleed. recommend SNF closely monitor pt's H&H. - HPI History of Present Illness: refer from Dr. Grayson's HPI on 09/21/2019 Patient is a 69 y/o female who presents from [facility] where she resides after a mechanical fall. It initially happened 2 days ago then again tonight. She hit her forehead but did not black out. She uses a walker to get around but she says it gave way from under her. A caregiver who repairer and checker on her and brought her meal found her and called EMS. Brain CT in the ED was unremarkable for any bleed or fracture. CT of lower extremity showed an left incomplete intratrochanteric fracture. Dr Meza (orthopedics) was contacted by the ED and is agreeable to see the patient. At bedside she appears to be resting comfortably. She denies chest pain, dyspnea, abd pain, n/v/d, fever or chill. - CONSULTS | PROCEDURES Consultations: Dr. Moe Meza Procedures: left hip fracture repair - HOSPITAL COURSE Hospital Course: pt was admitted for fall. pt was found to have left hip fracture. pt had hip repaired by orthopedics surgeon. pt continue to PT/OT evaluation and treatment in the hospital. pt also develop leukocytosis with elevated temperature. pt was treated with antibiotics. Then pt became hemodynamic stable without respiratory distress, WBC became normal. The detail hospital course is as the below. 1, s/p left hip fracture repair stable, [facility]. pt is prescribed pain meds, Aspirin for DVT prophylaxis, Calcium and vitamin D3, and fosamax for fall prevention and bone health. 2, Leukocytosis with elevated temperature stable, WBC is normal now. pt has no more fever, chill. I called lab, they state pt's blood culture is negative for bacteremia. pt has hx of fever without etiology in the last admission. it is likely from her COPD and s/p of operation with lung infection. pt is prescribed antibiotics 3, Fall stable, d/c SNF for more training 4, Acute metabolic encephalopathy resolved 5, COPD stable. pt has no respiratory distress. continue home inhaler PRN 6, Dementia stable 7, Insulin dependent DM type 2 stable, resume home insulin 8, malnutrition stable. discussed with pt, and encourage eat more. 9, Hypokalemia resolved. 10, anemia slight decreased HGB is 9.1. pt is asymptomatic for anemia. pt denies GI bleed. recommend SNF closely monitor pt's H&H. - ALLERGIES Allergies/Adverse Reactions: Allergies Allergy/AdvReac Type Severity Reaction Status Date / Time No Known Drug Allergies Allergy Verified 09/10/19 18:37 - MEDICATIONS Home Medications: Ambulatory Orders Medication Instructions Recorded Confirmed Hydrocortisone 1% Oint 1 applic TOP PRN PRN 09/11/19 09/22/19 [Hydrocortisone] Insulin Glargine,Hum.rec.anlog 15 units SUBQ DAILY 09/11/19 09/22/19 [Basaglar Kwikpen U-100] Albuterol Sulfate [Proair Hfa 1 - 2 puffs INH Q4H PRN #1 inhaler 09/12/19 09/22/19 Inhaler] Loperamide [Imodium] 2 mg PO TID PRN 09/16/19 09/22/19 Ipratropium/Albuterol [Combivent 1 puffs INH Q6H PRN 09/22/19 09/22/19 Respimat] Alendronate [Fosamax] 70 mg PO Q7D #1 tablet 09/26/19 Amox/Clav 500/125 [Augmentin] 1 each PO Q12H #12 tablet 09/26/19 Aspirin 325 mg PO DAILY #10 tablet 09/26/19 Calcium Carbonate/Vitamin D3 1 each PO DAILY #10 tablet 09/26/19 [Calcium 500 mg-Vit D3 600 Unit] Saccharomyces Boulardii [Florastor] 250 mg PO BID #12 capsule 09/26/19 oxyCODONE [Roxicodone] 5 mg PO Q4HR PRN #20 tablet 09/26/19 - PHYSICAL EXAM AT DISCHARGE General Appearance: positive: No acute distress, Alert. negative: Lethargic Eyes Bilateral: positive: Normal inspection, PERRL, EOMI, No lid inflammation ENT: positive: ENT inspection nml, Pharynx nml, No signs of dehydration. negative: Purulent nasal drainage, Pharyngeal erythema, Oral lesions Neck: positive: Nml inspection, Thyroid nml, No JVD, Trachea midline. negative: Thyromegaly, Lymphadenopathy (R), Lymphadenopathy (L), Stiff neck, Tracheal deviation Respiratory: positive: Chest non-tender, No respiratory distress. negative: Wheezes, Rales, Rhonchi Cardiovascular: positive: Regular rate & rhythm, No murmur, No gallop. negative: Irregularly irregular, Extrasystoles, Tachycardia, Bradycardia, JVD present, Systolic murmur, Diastolic murmur Peripheral Pulses: positive: 2+ Abdomen: positive: Non-tender, No organomegaly, Nml bowel sounds, No distention. negative: Tenderness, Guarding, Rebound Back: positive: Nml inspection. negative: CVA tenderness (R), CVA tenderness (L) Skin: positive: Color nml, No rash, Warm, Dry. negative: Cyanosis, Diaphoresis, Pallor Extremities: positive: Non-tender, Full ROM, Nml appearance. negative: Pedal edema, Calf tenderness, Cr's sign/cords Neurologic/Psychiatric: positive: Motor nml, Sensation nml, Mood/affect nml. negative: Weakness, Sensory loss, Facial droop, Slurred/abnml speech, Depressed mood/affect - LABS Result Diagrams: 09/26/19 07:50 09/26/19 07:50 - SEPSIS Current Stage of Sepsis: Ruled out - QUALITY (Female Hip Fx Only) Was patient sent home on osteoporosis medication?: Yes - FOLLOW UP Follow Up: pt may followup health provider at [facility] when pt is arrival. Aspirin is prescribed for DVT prophylaxis. pt may continue PT/OT, pt may followup orthopedics office in two weeks or early as needed. pt may Continue breath treatment and supplement of O2 as needed, and continue finish the course of antibiotics. - TIME SPENT Time Spent in Discharge (Minutes): 40"
== END 2019-09-26 13:45 | DRG 480 ==
LOC: EDUNIT# → ED 19:52 → MS2 23:38
PROVIDERS: ADMIT Internal Medicine; ATTEND Nurse Practitioner Gerontology
PROC: 0QS736Z Reposition Left Upper Femur with Intramedullary Internal Fixation Device, Percutaneous Approach (ICD-10-PCS; principal; 2019-09-22 12:15)
DX: S72.145A Nondisplaced intertrochanteric fracture of left femur, initial encounter for closed fracture (principal); G93.41 Metabolic encephalopathy; E46 Unspecified protein-calorie malnutrition; Z68.1 Body mass index [BMI] 19.9 or less, adult; I10 Essential (primary) hypertension; R64 Cachexia; E11.9 Type 2 diabetes mellitus without complications; W06.XXXA Fall from bed, initial encounter; Z91.81 History of falling; Y92.092 Bedroom in other non-institutional residence as the place of occurrence of the external cause; F17.200 Nicotine dependence, unspecified, uncomplicated; R32 Unspecified urinary incontinence; J44.9 Chronic obstructive pulmonary disease, unspecified; F03.90 Unspecified dementia, unspecified severity, without behavioral disturbance, psychotic disturbance, mood disturbance, and anxiety; E11.65 Type 2 diabetes mellitus with hyperglycemia; E87.6 Hypokalemia; D52.0 Dietary folate deficiency anemia; R50.9 Fever, unspecified; D72.829 Elevated white blood cell count, unspecified; F17.210 Nicotine dependence, cigarettes, uncomplicated; K52.9 Noninfective gastroenteritis and colitis, unspecified; Z74.09 Other reduced mobility; H91.90 Unspecified hearing loss, unspecified ear; Z66 Do not resuscitate; Z79.4 Long term (current) use of insulin; Z79.51 Long term (current) use of inhaled steroids; Z87.440 Personal history of urinary (tract) infections
CPT/HCPCS: 36415; 70450; 71045; 73502; 73700; 80048; 80053; 81001; 81003; 83036; 83690; 84443; 85014; 85018; 85025; 85610; 85730; 87040; 93005; 97161; 97165; 97530; 97535; 99284; 99285; A9270; C1713; J0131; J1650; J1815; J3010; J7120; 87086

== ENCOUNTER 2019-11-14 12:45 | Outpatient (CLI) | payer MEDICARE ==
--- NOTE | 2019-11-14 17:14 | CONSULTATION NOTE ---
Palliative Care Follow Up - Referral Referring Provider: Shruthi Swanson PA-C Time of Visit: [id number] Referral setting: Home Referral Reason: FTT/DMI/s/p femur fx - Information Sources Records reviewed: Previous records reviewed History/Review of Systems obtained from: Patient, Caregiver (Malathi DPOA/Primary CG and Cirilo) Exam limitations: Clinical condition (patient with GALENA and mild anxiety) - History of Present Illness Update Brief HPI Update: This is a complicated 69-year-old woman who is recently diagnosed with diabetes type 1 late fall, and had initially refused insulin. Since this time, her friend and DPOA Malathi, found some old prescriptions in her belonging of Metformin, dating back to 2011 and well and antipsychotics for treating schizophrenia as she did not really know any of her history previous to the time she has been in her life 5 1/2 years ago. Her blood sugars had originally been in her 600s, was working her way down, as we had talked her into using insulin, but unfortunately developed a cold with an exacerbation of her COPD, and was hospitalized for pneumonia with treatment of antibiotics and steroids. This was at the [facility], she was at [place] for respite stay while Malathi was on vacation, and unfortunately had a fall on 09/21, and ended up with a closed hip fracture, underwent surgery for a repair. She was hospitalized from 09/26, and had a extended stay at the SNF, with adjustments of her medications. Patient is quite adverse to taking medications and insulin, they were able to transition over to metformin 1000 mg twice daily with only Lantus for breakthrough dosing. She remains quite perseverative on the shots, worried about eating to raise her blood sugars, and has lost another 15 pounds, she currently weighs in the 87 pounds. She did participate in rehab, she is ambulatory with a walker, though remains quite weak given her weight loss and cachexia. Lynn is been a bit surprised, that she would eat better when she was home, but remains quite perseverative on causing her blood sugar to be high. Patient also presents with a new small palpable mass to the right of her umbilicus, about the size of a line. It is firm, not painful, does not appear to be an abscess, it did reduce some after her bowels moved, but does not appear to be a hernia. It is not causing her any pain, they have not noticed it before, unclear if it showing now because of weight loss or has developed an unidentified growth. Discussion regarding work-up, follow-up for identifying underlying etiology, patient would not accept any kind of treatment, her goals of always been comfort focus. She would also be traumatized by the imaging, after much discussion with patient participating, decided to take a watch and see. Social History - Living Situation Living arrangement: Other (lives at friends home) Support System: Patient was essentially homeless, Lizeth met her after release from a psych facility, was her banker and had helped her find some stable living situation. She did live with her aunt for about 3 and half years, until that no longer worked out and has been with Lynn since that time. [facility] was willing to keep her, under Medicaid, but given that she was still doing poorly, having weight loss, and missing her 2 little dogs, they decided to bring her home to see if they could get her more stable. Lynn is her D POA, and does help oversee and advocate for Harrison. Harrison has no family members, are identified other friends that are able to support her. Medications/Allergies - Medications Home Medications: Ambulatory Orders Medication Instructions Recorded Confirmed Insulin Glargine,Hum.rec.anlog 12 units SUBQ DAILY PRN 09/11/19 11/14/19 [Basaglar Kwikpen U-100] Loperamide [Imodium] 2 mg PO TID PRN 09/16/19 11/14/19 Losartan Potassium 25 mg PO QPM 11/14/19 11/14/19 Mirtazapine 7.5 mg PO QPM MDD 1/2 tab for 1 11/14/19 11/14/19 week; then full - Allergies Allergies/Adverse Reactions: Allergies Allergy/AdvReac Type Severity Reaction Status Date / Time No Known Drug Allergies Allergy Verified 09/10/19 18:37 Review of Systems - Constitutional Constitutional: reports: Fatigue, Weakness, Poor appetite, Weight loss (87 at home 3 days ago; 15 pound wt loss at [facility]). denies: Fever, Chills, Night sweats - Eyes Eyes: reports: Vision loss, Corrective lenses - Ears, Nose & Throat Ears, Nose & Throat: reports: Hearing loss, Dental decay, Dry mouth - Cardiovascular Cardiovascular: reports: Decr. exercise tolerance - Respiratory Respiratory: reports: SOB with exertion, Other (stopped smoking). denies: Cough, SOB at rest - Gastrointestinal Gastrointestinal: reports: Constipation (had large BM while there), Poor appetite, Early satiety. denies: Nausea, Reflux/heartburn - Genitourinary Genitourinary: denies: Incontinence - Musculoskeletal Musculoskeletal: reports: Stiffness, Limited range of motion, Muscle weakness, Joint pain (left hip), Assistive devices (uses walker when up) - Integumentary Integumentary: reports: Dryness - Neurological Neurological: reports: General weakness, Memory problems, Abnormal gait (left foot drag; weak) - Psychiatric Psychiatric: reports: Depression, Anxiety - Endocrine Endocrine: reports: Other (diabetes type I) - Hematologic/Lymphatic Hematologic/Lymphatic: reports: Anemia (9.1 on discharge from hospital), Bruising, Recurrent infections - All Other Systems All Other Systems: reports: Other (limited ROS) Physical Exam - Vital Signs Temperature: 96.6 C Pulse Rate: 103 Respiratory Rate: 18 O2 Saturation: 97 (ra @ rest) Blood Pressure: 112/74 - Physical Exam General Appearance: positive: Mild distress, Anxious, Cachetic Eyes Bilateral: positive: Normal inspection ENT: positive: Other (poor dentition) Neck: positive: Trachea midline Cardiovascular: positive: Tachycardia Respiratory: positive: Diminished in bases, Other (has stopped smoking; lung sounds improved). negative: Wheezes, Rales, Rhonchi Abdomen: positive: Other (small palpable firm mass right of umbilicus; non tender; new to patient and CG today; patient has been constipated and straining, does not reduce like a hernia would) Skin: positive: Pallor, Dryness, Bruising (small area of bruising left groin; no know trauma), Other (hip incision left side well healed;) Extremities: positive: No pedal edema Neurologic/Psychiatric: positive: Oriented x3, Mood/affect nml (slightly anxious), Weakness Palliative Care - POLST Patient has POLST: Yes POLST Status: DNR, Comfort Measures Pain: Pain unchanged, Location (left hip; worsening with weight bearing; no pain at rest; not painful enough to take ApAP) Tiredness/Fatigue: Moderate (4-6) Drowsiness/Sedation: Mild (1-3) Nausea: None Anorexia: Moderate (4-6) (early satiety; denies feeling hungry) Dyspnea: Mild (1-3) Depression: Mild (1-3) Anxiety: Moderate (4-6) Feelings of wellbeing/Perceived Quality of Life: Fair, Acceptable, Improved (relieved to be back at [employer] and with dogs) Sleep: Sleeps well Constipation: Yes, Intermittent constipation Performance Status: Patient is mostly sedentary, this is related to fatigue and weakness. She is able to get from sitting to standing with contact assist, she is able to ambulate short distances with her walker, she is able to toilet independently. She does need some assistance with bathing, Lizeth is able and willing to do this. They are doing meal prep for her, as well as overseeing her medications and diabetes care. - Palliative Care Discussion: Patient continues to be quite frail and cachectic, Lizeth is hoping for some improvement now that she is back. Goals of always been to focus on comfort, patient gets quite distressed and dislikes interactions with healthcare system, unfortunately through her series of unfortunate events she has had 2 hospitalizations and a SNF stay. She finds this quite stressful and overwhelmin g. If patient is declining, or worsening, the goal is to focus on comfort, there have been discussions about transition to hospice. Patient with significant weight loss, will see how she adjusts and improves in her "home setting". Now unfortunate identified possible complication, with this new small abdominal mass, at this point in time given patient's goals we will do a [id number].Patient does have a POLST with [facility], goals have been comfort. Most likely does need to be updated with more robust information, but will wait until patient feeling more comfortable with provider. Results - Lab Results Lab and Imaging Results: Has not had any labs since hospitalized and review of records no imaging that included her abdomen. We will make arrangements for blood draw just to get a baseline where she currently is. She is in agreement though reluctant because it involves needles. Impression and Recommendations - Palliative Care Impression: This is a 69-year-old woman who is quite complex, she does have underlying mental health issues and a complex social situation. She is recently had surgical repair for status post hip fracture, as well as diabetes type 1, currently better controlled. She has recently transition back to the home of her friend, hoping because of her significant weight loss will see some improvement both in her strength and address her underlying cachexia. Patient now presents with small abdominal mass of unknown etiology, will at this point watch and wait. Palliative care to continue provide assistance and defining goals of care, and transition to hospice if appropriate. Recommendations/Counseling Done: 1.Diabetes type 1. Patient is resistant to eating increased calories as afraid of needing her insulin, currently it reads if blood sugar greater than 150, they have only had to give 1 shot. Discussed in the context of control, patient has been fairly high in the past, wanting to increase her weight and not discouraged her from eating, will increase that to 200 fasting blood sugar for taking her insulin. We also discussed in the context of her dehydration, she had been trying to cut back on her Diet Coke, unfortunately this is been her main source of fluid, she did go from 10 cans to 1 can, encouraged her given her intermittent hypotension, to at least drink 2 or 3 and push her fluids up to at least 6 glasses a day. 2. Abdominal mass. Unknown etiology, certainly could be malignant in the context of her heavy smoking, and poor health follow-up up to this point. Does not appear to be a hernia, though certainly could given her cachexia and thin abdominal wall. Is not painful, does not appear to be an abscess. Does not cause her any problems at this point in time. Counseling and discussion ensued regarding goals of care, patient most likely would not have it treated if it was something, at this point in time agreement to monitor if causes pain, or CNC worsening, we can readdress. 3. Muscle weakness. Patient is quite weak, has had weight loss and muscle loss . She did have some rehab at [facility], discussed further physical therapy and follow-up. Patient is willing to go to [facility] with Lizeth who is currently receiving treatment, Lizeth feels this would be helpful also as far as decreasing her isolation and getting her out of the house. Prescription sent to [facility] for rehab PT. 4. Protien calorie malnutrition. This is multifactorial in origin, including decreased intake, fears of increased blood sugars, early satiety, and recent food choices at [facility]. Counseling and problem solving done regarding foods that will appeal the patient, strategies for small frequent meals, pushing fluids with calories, as well this fall back to some of patient's favorite foods to entice her to eat more regularly. Lynn will try and weigh weekly as patient allows. We will go ahead and prescribe mirtazapine 7.5 mg tab, for half tab at bedtime for 1 week then increase to full tab. Patient reluctant to add medications, but Lizeth will try and persuade. 5. Advanced care planning. Lizeth had explored alternative living arrangements, [facility] was willing to accept her as a resident. They are continue to work on application for S. Lizeth is off her 2 months, is willing to work with her to try and get her stronger and will continue to evaluate what it is an appropriate setting for her. Goals remain to focus on comfort, weigh benefits and burdens of decisions as they come up, patient is quite frail, and would be appropriate to transition to hospice if continues to deteriorate. Time Spent: 45 minutes with greater than 50% of this done in counseling regarding goals of care, transition home, weighing benefits and burdens of treatment decisions as they come up, and anticipatory guidance.
== END 2019-11-14 12:46 | disposition home or self-care (01) ==
LOC: PC 12:45
PROVIDERS: ATTEND Nurse Practitioner Adult Health
DX: Z51.5 Encounter for palliative care (principal); R63.4 Abnormal weight loss; R19.05 Periumbilic swelling, mass or lump; E10.9 Type 1 diabetes mellitus without complications; M62.81 Muscle weakness (generalized); E46 Unspecified protein-calorie malnutrition; F99 Mental disorder, not otherwise specified; Z79.899 Other long term (current) drug therapy; Z79.84 Long term (current) use of oral hypoglycemic drugs; Z87.891 Personal history of nicotine dependence; Z66 Do not resuscitate
CPT/HCPCS: 99349